=== PATIENT | male | born 1960 | race Caucasian/White ===

== ENCOUNTER → 2016-10-29 | Outpatient (CLI) | payer MEDICAID ==
[2016-10-29 10:44] LABS: ANION GAP 11 (5-19); BLOOD UREA NITROGEN 23 mg/dL (7-20); CALCIUM 9.8 mg/dL (8.4-10.2); CARBON DIOXIDE 28 mmol/L (22-30); CHLORIDE 101 mmol/L (98-107); CHOLESTEROL 124.86 mg/dL (0-200); CREATININE RESULT 1.25 mg/dL (0.52-1.25); Direct HDL 46 mg/dL (>40); GLUCOSE 141 mg/dL (75-110); POTASSIUM 5.5 mmol/L (3.6-5.0); SODIUM 140.2 mmol/L (137-145); TRIGLYCERIDES 79 mg/dL (<150)
[2016-10-29 10:58] LABS: DIRECT LDL 60 mg/dL (<100)
== END ==
LOC: OD 08:35
PROVIDERS: ATTEND Internal Medicine Cardiovascular Disease
DX: N18.3 Chronic kidney disease, stage 3 (moderate) (principal); E83.42 Hypomagnesemia; E78.5 Hyperlipidemia, unspecified
CPT/HCPCS: 36415; 80048; 80061; 83735

== ENCOUNTER → 2017-03-04 | Outpatient (CLI) | payer MEDICAID ==
[2017-03-04 09:05] LABS: ALANINE AMINOTRANSFERASE 38 U/L (21-72); ALBUMIN 4.4 g/dL (3.5-5.0); ALKALINE PHOSPHATASE 80 U/L (38-126); ASPARTATE AMINO TRANSFERASE 22 U/L (17-59); BILIRUBIN,DIRECT 0.3 mg/dL (0.0-0.4); BILIRUBIN,TOTAL 0.7 mg/dL (0.2-1.3); CHOLESTEROL 135.67 mg/dL (0-200); Direct HDL 45 mg/dL (>40); TOTAL PROTEIN 7.6 g/dL (6.3-8.2); TRIGLYCERIDES 143 mg/dL (<150)
[2017-03-04 09:16] LABS: DIRECT LDL 72 mg/dL (<100)
== END ==
LOC: OD 08:01
PROVIDERS: ATTEND Internal Medicine Cardiovascular Disease
DX: E78.5 Hyperlipidemia, unspecified (principal); Z79.899 Other long term (current) drug therapy
CPT/HCPCS: 36415; 80061; 80076

== ENCOUNTER → 2017-09-16 | Outpatient (CLI) | payer MEDICAID | LOC: OD 07:57 | PROVIDERS: ATTEND Internal Medicine Cardiovascular Disease | DX: I10 Essential (primary) hypertension (principal); E78.5 Hyperlipidemia, unspecified; Z79.899 Other long term (current) drug therapy ==

== ENCOUNTER → 2017-09-16 | Outpatient (CLI) | payer MEDICAID ==
[2017-09-16 08:58] LABS: ANION GAP 12 (5-19); BLOOD UREA NITROGEN 24 mg/dL (7-20); CALCIUM 9.9 mg/dL (8.4-10.2); CARBON DIOXIDE 26 mmol/L (22-30); CHLORIDE 101 mmol/L (98-107); CHOLESTEROL 130.84 mg/dL (0-200); GLUCOSE 257 mg/dL (75-110); POTASSIUM 5.2 mmol/L (3.6-5.0); SODIUM 138.5 mmol/L (137-145); TRIGLYCERIDES 133 mg/dL (<150)
[2017-09-16 09:10] LABS: DIRECT LDL 68 mg/dL (<100)
== END ==
LOC: OD 08:01
PROVIDERS: ATTEND Internal Medicine Cardiovascular Disease
DX: I10 Essential (primary) hypertension (principal); E78.5 Hyperlipidemia, unspecified; Z79.899 Other long term (current) drug therapy
CPT/HCPCS: 36415; 80048; 80061

== ENCOUNTER → 2018-03-06 | Outpatient (CLI) | payer MEDICAID ==
[2018-03-06 10:46] LABS: ANION GAP 13 (5-19); BLOOD UREA NITROGEN 18 mg/dL (7-20); CALCIUM 10.1 mg/dL (8.4-10.2); CARBON DIOXIDE 30 mmol/L (22-30); CHLORIDE 101 mmol/L (98-107); CHOLESTEROL 120.22 mg/dL (0-200); GLUCOSE 188 mg/dL (75-110); POTASSIUM 5.3 mmol/L (3.6-5.0); SODIUM 144.1 mmol/L (137-145); TRIGLYCERIDES 123 mg/dL (<150)
[2018-03-06 10:57] LABS: DIRECT LDL 57 mg/dL (<100)
== END ==
LOC: OD 09:33
PROVIDERS: ATTEND Internal Medicine Cardiovascular Disease
DX: N18.3 Chronic kidney disease, stage 3 (moderate) (principal); E78.5 Hyperlipidemia, unspecified
CPT/HCPCS: 36415; 80048; 80061; 83735

== ENCOUNTER 2018-04-08 04:29 | Emergency (ER) | payer MEDICAID ==
[2018-04-08] MEDS ORDERED: KETOROLAC TROMETHAMINE INJ/PF 30 MG/1 ML SDV IV ONE (05:30)
[2018-04-08] MEDS ORDERED: ONDANSETRON HCL INJ/PF 4 MG/2 ML SDV IV ONE (05:30)
[2018-04-08 05:47] LABS: ABSOLUTE BASOPHILS # (AUTO) 0.1 10^3/uL (0.0-0.2); ABSOLUTE EOSINOPHILS # (AUTO) 0.4 10^3/uL (0.0-0.6); ABSOLUTE LYMPHOCYTES (AUTO) 1.6 10^3/uL (0.5-4.7); ABSOLUTE MONOCYTES (AUTO) 0.9 10^3/uL (0.1-1.4); ABSOLUTE NEUT (AUTO) 7.1 10^3/uL (1.7-8.2); BASOPHILS % (AUTO) 0.8 % (0-2); EOSINOPHILS % (AUTO) 3.9 % (0-6); HEMATOCRIT 40.2 % (37.9-51.0); HEMOGLOBIN 13.6 g/dL (13.5-17.0); LYMPHOCYTES % (AUTO) 15.6 % (13-45); MEAN CORPUSCULAR HEMOGLOBIN 27.4 pg (27.0-33.4); MEAN CORPUSCULAR HGB CONC 33.9 g/dL (32.0-36.0); MEAN CORPUSCULAR VOLUME 81 fl (80-97); MONOCYTES % (AUTO) 8.7 % (3-13); PLATELET COUNT 153 10^3/uL (150-450); RED BLOOD COUNT 4.98 10^6/uL (4.35-5.55); RED CELL DISTRIBUTION WIDTH 14.2 % (11.5-14.0); TOTAL CELLS COUNTED % (AUTO) 100 %
[2018-04-08 06:09] LABS: ALANINE AMINOTRANSFERASE 33 U/L (21-72); ALBUMIN 3.9 g/dL (3.5-5.0); ALKALINE PHOSPHATASE 67 U/L (38-126); ANION GAP 12 (5-19); ASPARTATE AMINO TRANSFERASE 24 U/L (17-59); BILIRUBIN,DIRECT 0.3 mg/dL (0.0-0.4); BILIRUBIN,TOTAL 0.4 mg/dL (0.2-1.3); BLOOD UREA NITROGEN 27 mg/dL (7-20); CALCIUM 9.3 mg/dL (8.4-10.2); CARBON DIOXIDE 28 mmol/L (22-30); CHLORIDE 100 mmol/L (98-107); GLUCOSE 239 mg/dL (75-110); LIPASE 167.1 U/L (23-300); POTASSIUM 4.2 mmol/L (3.6-5.0); SODIUM 139.8 mmol/L (137-145)
--- NOTE | 2018-04-08 07:12 | ER Document Report ---
ED General - General Chief Complaint: Possible Kidney Stone Stated Complaint: FLANK PAIN Time Seen by Provider: 04/08/18 07:11 Mode of Arrival: Ambulatory Information source: Patient TRAVEL OUTSIDE OF THE [place] IN LAST 30 DAYS: No - HPI Notes: 58-year-old male with a medical history of diabetes type 2 states he has had strokes in the past as well as a lateral wall CT presents to the ED for complaints of left flank pain that started midnight, states he has a history of kidney stones. States pain is been intermittent, thinks he may have passed one while he was waiting prior to being aided by this provider. Pain is now a 6 out of 10, constant and throbbing in the left. Patient is being evaluated by Dr. Tobias, advertising traffic manager for being in late stage due to early stage III chronic renal failure. denies fevers, chills, chest pain,palpitations, shortness of breath, dyspnea, nausea, vomiting, diarrhea, abdominal pain, , blurred vision, double vision, loss of vision, speech changes, LH, dizziness, syncope, headaches, wheezing, ST, URI, neck pain, weakness, bowel or bladder dysfunction, saddle anesthesia, numbness or tingling in bilateral upper or lower extremities equally, muscle paralysis, weakness in bilateral upper or lower extremities equally or rash. Denies IV drug use. - Related Data Allergies/Adverse Reactions: furosemide [From Lasix] Allergy (Verified 03/09/14 01:35) Past Medical History - General Information source: Patient, Relative - Social History Smoking Status: Never Smoker Family History: Reviewed & Not Pertinent Patient has suicidal ideation: No Patient has homicidal ideation: No - Past Medical History Cardiac Medical History: Reports: Hx Hypertension Pulmonary Medical History: Reports: Hx COPD Denies: Hx Tuberculosis Neurological Medical History: Reports: Hx Cerebrovascular Accident Endocrine Medical History: Reports: Hx Diabetes Mellitus Type 2 Renal/ Medical History: Reports: Hx Kidney Stones, Hx Renal Insufficiency - Stage III. Denies: Hx Peritoneal Dialysis Past Surgical History: Reports: Hx Tonsillectomy - 4 YRS OLD. Denies: Hx Pacemaker - Immunizations Immunizations up to date: Yes Hx Diphtheria, Pertussis, Tetanus Vaccination: No Review of Systems - Review of Systems Constitutional: No symptoms reported EENT: No symptoms reported Cardiovascular: No symptoms reported Respiratory: No symptoms reported Gastrointestinal: No symptoms reported Genitourinary: See HPI Male Genitourinary: No symptoms reported Musculoskeletal: No symptoms reported Skin: No symptoms reported Hematologic/Lymphatic: No symptoms reported Neurological/Psychological: No symptoms reported Physical Exam - Vital signs Vitals: Temp Pulse Resp BP Pulse Ox 98.4 F 83 20 173/84 H 99 04/08/18 04:30 04/08/18 04:30 04/08/18 04:30 04/08/18 04:30 04/08/18 04:30 - Notes Notes: PHYSICAL EXAMINATION: GENERAL: Well-appearing, well-nourished and in no acute distress. HEAD: Atraumatic, normocephalic. EYES: Pupils equal round and reactive to light, extraocular movements intact, sclera anicteric, conjunctiva are normal. ENT: Nares patent, oropharynx clear without exudates. Moist mucous membranes. NECK: Normal range of motion, supple without lymphadenopathy LUNGS: Breath sounds clear to auscultation bilaterally and equal. No wheezes rales or rhonchi. HEART: Regular rate and rhythm without murmurs ABDOMEN: Soft, nontender, nondistended abdomen. No guarding, no rebound. No masses appreciated. Left CVA tenderness noted. Musculoskeletal: Normal range of motion, no pitting or edema. No cyanosis. NEUROLOGICAL: Cranial nerves grossly intact. Normal speech, normal gait. Normal sensory, motor exams PSYCH: Normal mood, normal affect. SKIN: Warm, Dry, normal turgor, no rashes or lesions noted. Course - Re-evaluation Re-evalutation: 04/08/18 10:16 58-year-old male with a history of type 2 diabetes, CT with a past process for evaluation of left flank pain. Remains afebrile vitals stable and in no distress. Patient states that he likely passed a stone due to his pain resolving somewhat once this provider came into the room. Eating and drinking without issues. Reports some nausea but no vomiting. Has tried to increase fluids. Patient is being followed by Dr. Tobias advertising traffic manager in [facility]. CBC unremarkable, CMP does show a creatinine 1.44 with a BUN of 27. Potassium is 4.2. Patient receiving 1 L of fluid another 500 mL fluid will recheck creatinine. Last creatinine that was checked in February was 1.1 in [facility] records. Patient has not been drinking as much, suspect dehydration could be causing this elevated creatinine. urinalysis shows hematuria with glycosuria. Renal ultrasound shows a nonobstructing 5 mm left renal calculus in the upper mid pole of the kidney, no obstruction or hydronephrosis noted. Patient not take his blood pressure medications this morning, numbness or tingling in bilateral upper lower extremities, speech, vision double vision or loss of vision. States he will take blood pressure medication when he gets home. Patient states will start patient on Flomax, given Zofran and [place] for pain to take as needed advised patient to not drive, drink or operate heavy machinery as [place] can cause sedation and impaired judgment. Reevaluation of creatinine was 135 after IV fluids. Discussed with patient to increase oral hydration and advised to follow-up with advertising traffic manager within the next 3 days. Low suspicion for acute appendicitis, bowel obstruction, acute cholecystitis, perforated diverticulitis, incarcerated hernia, pancreatitis, testicular torsion, perforated ulcer and give the patient is appropriate for discharge at this time I have reevaluated this patient multiple times and no significant life threatening changes, no signs of toxicity, sepsis or peritonitis are noted. The patient and I have discussed the diagnosis and risks, and we agree with discharging home and close follow-up. We also discussed returning to the Emergency Department immediately if new or worsening symptoms occur with the understanding that symptoms and presentations can change. At this time will discharge with return precautions and follow-up recommendations. Verbal discharge instructions given a the bedside and opportunity for questions given. We have discussed the symptoms which are most concerning (e.g., fever, chills, urinary retention, cp, sob, changing or worsening pain) that necessitate immediate return. Medication warnings reviewed. All questions and concerns answered by this provider. Patient is in agreement with this plan and has verbalized understanding of return precautions and the need for primary care follow-up in the next 24-72 hours. Patient verbalized understanding of plan of care and agree with plan of care. 04/08/18 13:09 - Vital Signs Vital signs: Temp Pulse Resp BP Pulse Ox 98.8 F 80 20 159/90 H 95 04/08/18 12:12 04/08/18 12:12 04/08/18 12:12 04/08/18 12:12 04/08/18 12:12 - Laboratory Result Diagrams: 04/08/18 05:22 04/08/18 11:15 Laboratory results interpreted by me: 04/08/18 04/08/18 04/08/18 05:22 05:22 07:04 RDW 14.2 H Potassium BUN 27 H Creatinine 1.44 H Est GFR (Non-Af Amer) 50 L Glucose 239 H Urine Glucose (UA) >=500 H Urine Blood SMALL H 04/08/18 11:15 RDW Potassium 5.6 H D BUN 22 H Creatinine 1.35 H Est GFR (Non-Af Amer) 54 L Glucose 215 H Urine Glucose (UA) Urine Blood Discharge - Discharge Clinical Impression: Left nephrolithiasis Chronic renal failure Qualifiers: Chronic kidney disease stage: unspecified stage Qualified Code(s): N18.9 - Chronic kidney disease, unspecified Condition: Stable Disposition: HOME, SELF-CARE Instructions: Kidney Stone ([facility]) Additional Instructions: Your symptoms should improve over the course of the next one week. If you continue to have pain for greater than one week or your pain is not controlled with the pain medications that you have been sent home with you need to return to the emergency department. Please also return if you develop fever, persistent vomiting, or any other symptoms that are concerning to you. You should take tylenol and use the oral norco as prescribed only for pain not controlled by ibuprofen. You are also been sent home with a medication called Flomax to help pass the stone. You've been given Zofran to assist with nausea. Please follow-up with urology in the next 2-3 days. If her symptoms become worse return to the emergency room. Prescriptions: Ondansetron [Zofran Odt 4 mg Tablet] 1 - 2 tab PO Q4H PRN #15 tab.rapdis PRN Reason: For Nausea/Vomiting Tamsulosin HCl [Flomax 0.4 mg Cap.sr] 0.4 mg PO DAILY #7 cap.sr.24h Referrals: ZOIE LANGE MD [Primary Care Provider] - Follow up as needed MARY TOBIAS MD [ACTIVE STAFF] - Follow up in 3-5 days
[2018-04-08] MEDS ORDERED: MORPHINE SULFATE 10 MG/ML INJ IV ONE (07:29)
[2018-04-08] MEDS ORDERED: NORMAL SALINE 1000 ML 1,000 ML IV ONE (07:29)
[2018-04-08 08:15] LABS: APPEARANCE,URINE CLEAR; BILIRUBIN,URINE NEGATIVE (NEGATIVE); COLOR,URINE YELLOW; GLUCOSE, URINE >=500 mg/dL (NEGATIVE); KETONES,URINE NEGATIVE (NEGATIVE); LEUKOCYTE ESTERASE,URINE NEGATIVE (NEGATIVE); NITRITE,URINE NEGATIVE (NEGATIVE); PROTEIN,URINE NEGATIVE (NEGATIVE); URINE SPECIFIC GRAVITY 1.014; UROBILINOGEN,URINE NEGATIVE mg/dL (<2.0)
--- NOTE | 2018-04-08 08:45 | RADIOLOGY REPORT (SQ) ---
EXAM DESCRIPTION: U/S RETROPERITON LTD COMPLETED DATE/TIME: 04/08/2018 8:36 am REASON FOR STUDY: left flank pain, hx of kidney stones COMPARISON: None. TECHNIQUE: Dynamic and static grayscale images acquired of the kidneys and bladder and recorded on P ACS. Additional selected color Doppler and spectral images recorded. LIMITATIONS: The examination is limited due to the patient's body habitus. FINDINGS: RIGHT KIDNEY: The right kidney measures 10.5 cm in length, normal size. Normal echogeni city. No solid or suspicious masses. No hydronephrosis. No calcifications. LEFT KIDNEY: The left kidney measures 11.4 cm in length, normal size. Normal echogenicity. A nono bstructing 5 mm calculus in the upper- mid pole of the kidney. BLADDER: No masses. Bilateral ureteral jets are not visualized. OTHER FINDINGS: No other significant finding. IMPRESSION: 1 Non-obstructing 5 mm left renal calculus. TECHNICAL DOCUMENTATION: JOB ID: [id number] [employer]- All Rights Reserved Reading location - IP/workstation name: [email or web address]
[2018-04-08] MEDS ORDERED: NORMAL SALINE 500 ML IV PRN (09:46)
[2018-04-08] MEDS ORDERED: HYDROCODONE/ACETAMINOPHEN 5-325 MG (6 TAB/ER DISP) PO PRN (10:00)
[2018-04-08] MEDS ORDERED: FENTANYL CITRATE INJ/PF 100 MCG/2 ML AMPUL IV ONE (11:20)
[2018-04-08 11:51] LABS: ANION GAP 14 (5-19); BLOOD UREA NITROGEN 22 mg/dL (7-20); CALCIUM 9.2 mg/dL (8.4-10.2); CARBON DIOXIDE 27 mmol/L (22-30); CHLORIDE 101 mmol/L (98-107); GLUCOSE 215 mg/dL (75-110); SODIUM 141.8 mmol/L (137-145)
[2018-04-08 11:52] LABS: POTASSIUM 5.6 mmol/L (3.6-5.0)
[2018-04-08 12:19] VITALS: BP 159/90
== END 2018-04-08 12:10 | disposition home or self-care (01) ==
LOC: ER 04:29
DX: N20.0 Calculus of kidney (principal); R31.9 Hematuria, unspecified; E11.22 Type 2 diabetes mellitus with diabetic chronic kidney disease; I12.9 Hypertensive chronic kidney disease with stage 1 through stage 4 chronic kidney disease, or unspecified chronic kidney disease; N18.3 Chronic kidney disease, stage 3 (moderate); R11.0 Nausea; I25.2 Old myocardial infarction; Z88.8 Allergy status to other drugs, medicaments and biological substances; Z79.899 Other long term (current) drug therapy
CPT/HCPCS: 99284; 96361; 96374; 96375; 36415; 83690; 85025; 80048; 80053; 81001; 76775; J3010; J2270; J2405; J7030; J7040

== ENCOUNTER 2018-04-08 16:30 | Inpatient (IN) | payer MEDICAID ==
--- NOTE | 2018-04-08 17:27 | ER Document Report ---
ED Medical Screen (RME) - General Chief Complaint: Possible Kidney Stone Stated Complaint: WEAKNESS Time Seen by Provider: 04/08/18 17:20 TRAVEL OUTSIDE OF THE [place] IN LAST 30 DAYS: No - HPI Notes: 04/08/18 17:26 Patient coming in for right upper extremity right lower extremity weakness onset after he was discharged here from the hospital with a kidney stone. Patient states he thinks he was having a reaction to the medication he received here. Patient states upon arriving home fell out of bed and laid on the floor for approximately 1 hour. Patient states unclear of exactly what time symptoms started possibly between 1230 and 130. - Related Data Allergies/Adverse Reactions: furosemide [From Lasix] Allergy (Verified 03/09/14 01:35) Past Medical History - Social History Chew tobacco use (# tins/day): No Frequency of alcohol use: None Drug Abuse: None - Past Medical History Cardiac Medical History: Reports: Hx Hypertension Pulmonary Medical History: Reports: Hx COPD Denies: Hx Tuberculosis Neurological Medical History: Reports: Hx Cerebrovascular Accident Endocrine Medical History: Reports: Hx Diabetes Mellitus Type 2 Renal/ Medical History: Reports: Hx Kidney Stones, Hx Renal Insufficiency - Stage III. Denies: Hx Peritoneal Dialysis Past Surgical History: Reports: Hx Tonsillectomy - 4 YRS OLD. Denies: Hx Pacemaker - Immunizations Immunizations up to date: Yes Hx Diphtheria, Pertussis, Tetanus Vaccination: No Physical Exam - Vital signs Vitals: Temp Pulse Resp BP Pulse Ox 98.1 F 106 H 16 151/105 H 93 04/08/18 16:37 04/08/18 16:37 04/08/18 16:37 04/08/18 16:37 04/08/18 16:37 - Notes Notes: Unequal television mechanic strengths left greater than right and equal push pull patient is unable to pick his leg up in the wheelchair and do knee-chest on the right side. Able to perform this on the left side. Symmetrical smile no drooping no aphasia no slurred speech Course - Re-evaluation Re-evalutation: 04/08/18 17:27 Patient states residual effects from previous strokes are all left-sided. Patient now with right upper right lower extremity weakness. Head CT will be performed stroke alert called charge nurse been notified - Vital Signs Vital signs: Temp Pulse Resp BP Pulse Ox 98.1 F 106 H 16 151/105 H 93 04/08/18 16:37 04/08/18 16:37 04/08/18 16:37 04/08/18 16:37 04/08/18 16:37 Doctor's Discharge - Discharge Referrals: ZOIE LANGE MD [Primary Care Provider] - Follow up as needed
--- NOTE | 2018-04-08 18:00 | RADIOLOGY REPORT (SQ) ---
EXAM DESCRIPTION: CT HEAD WITHOUT COMPLETED DATE/TIME: 04/08/2018 5:34 pm REASON FOR STUDY: weakness COMPARISON: CT brain 05/27/2012 MRI brain 05/24/2012 TECHNIQUE: Axial images acquired through the brain without intravenous contrast. Images reviewed wi th bone, brain and subdural windows. Additional sagittal and coronal reconstructions were generated. Images stored on PACS. All CT scanners at this facility use dose modulation, iterative reconstruction, and/or weight based d osing when appropriate to reduce radiation dose to as low as reasonably achievable (ALARA). [facility]: Dose Right [facility]: CareDose [facility]: Dose Right [facility]: Teradose 4D [facility]: [employer] RADIATION DOSE: CT Rad equipment meets quality standard of care and radiation dose reduction techniq ues were employed. CTDIvol: 53.2 mGy. DLP: 1017 mGy-cm. mGy. LIMITATIONS: None. FINDINGS: VENTRICLES: Normal size and contour. CEREBRUM: No CT evidence of acute large territory ischemic change, acute intracranial hemorrhage, mas s effect, or midline shift. Old lacunar infarct right thalamus axial image 17 CEREBELLUM: No masses. No hemorrhage. No alteration of density. No evidence for acute infarction. EXTRAAXIAL SPACES: No fluid collections. No masses. ORBITS AND GLOBE: No intra- or extraconal masses. Normal contour of globe without masses. CALVARIUM: No fracture. PARANASAL SINUSES: No fluid or mucosal thickening. SOFT TISSUES: No mass or hematoma. OTHER: No other significant finding. IMPRESSION: Old right thalamic infarct. No acute changes EVIDENCE OF ACUTE STROKE: NO. COMMENT: Quality ID # [id number]: Final reports with documentation of one or more dose reduction techniques (e.g., Automated exposure control, adjustment of the mA and/or kV according to patient size, use of iterative reconstruction technique) TECHNICAL DOCUMENTATION: JOB ID: [id number] [employer]- All Rights Reserved Reading location - IP/workstation name: [email or web address]
--- NOTE | 2018-04-08 18:12 | RADIOLOGY REPORT (SQ) ---
EXAM DESCRIPTION: CHEST SINGLE VIEW COMPLETED DATE/TIME: 04/08/2018 5:44 pm REASON FOR STUDY: weakness COMPARISON: 05/24/2012 EXAM PARAMETERS: NUMBER OF VIEWS: One view. TECHNIQUE: Single frontal radiographic view of the chest acquired. RADIATION DOSE: NA LIMITATIONS: None. FINDINGS: LUNGS AND PLEURA: No opacities, masses or pneumothorax. No pleural effusion. MEDIASTINUM AND HILAR STRUCTURES: No masses. Contour normal. HEART AND VASCULAR STRUCTURES: Cardiomegaly. No pulmonary edema. BONES: No acute findings. HARDWARE: None in the chest. OTHER: No other significant finding. IMPRESSION: Cardiomegaly without CHF. TECHNICAL DOCUMENTATION: JOB ID: [id number] [employer]- All Rights Reserved Reading location - IP/workstation name: [email or web address]
--- NOTE | 2018-04-08 18:23 | RADIOLOGY REPORT (SQ) ---
EXAM DESCRIPTION: CTA HEAD COMPLETED DATE/TIME: 04/08/2018 5:44 pm REASON FOR STUDY: RUe rle weakness stroke symtpoms COMPARISON: MRI brain 05/24/2012 CT brain 05/27/2012 TECHNIQUE: Post IV contrast scanning, thin section axial imaging through the brain to evaluate the a rterial structures. Source and MIP images are saved and reviewed on PACS. Advanced 3D imaging as volume-rendering, MIPs, SSD performed? yes All CT scanners at this facility use dose modulation, iterative reconstruction, and/or weight based d osing when appropriate to reduce radiation dose to as low as reasonably achievable (ALARA). [facility]: Dose Right [facility]: CareDose [facility]: Dose Right [facility]: Teradose 4D [facility]: [employer] CONTRAST TYPE AND DOSE: contrast/concentration: Isovue 350.00 mg/ml; Total Contrast Delivered: 65.0 ml; Total Saline Delivered: 75.0 ml RENAL FUNCTION: Creatinine 1.35 LIMITATIONS: None. FINDINGS: [place]: The anterior, middle, posterior cerebral arteries are all patent. No ev idence of aneurysm or focal stenosis. POSTERIOR CIRCULATION: The distal vertebral arteries are patent as is the basilar artery. No aneurysm . BRAIN: No gross enhancing lesions as visualized. No acute intracranial hemorrhage BONES: Intact as visualized. SINUSES: No fluid or mucosal thickening. OTHER: Results discussed with Dr. Chew At the bottom edge of the field of view, the carotid bifurcations are included on axial images 1-9. There is no flow significant stenosis of the proximal internal carotid arteries at the carotid bifurc ations. Cervical ICAs in the field of view are normal. IMPRESSION: NO CTA EVIDENCE OF STENOSIS OR ANEURYSM OF THE [place]. TECHNICAL DOCUMENTATION: JOB ID: [id number] Quality ID # [id number]: Final reports with documentation of one or more dose reduction techniques (e.g., Au tomated exposure control, adjustment of the mA and/or kV according to patient size, use of iterative reconstruction technique) 2010 [employer]- All Rights Reserved Reading location - IP/workstation name: [email or web address]
[2018-04-08 18:30] LABS: HEMATOCRIT 41.2 % (37.9-51.0); HEMOGLOBIN 13.5 g/dL (13.5-17.0); MEAN CORPUSCULAR HEMOGLOBIN 26.7 pg (27.0-33.4); MEAN CORPUSCULAR HGB CONC 32.7 g/dL (32.0-36.0); MEAN CORPUSCULAR VOLUME 82 fl (80-97); PLATELET COUNT 172 10^3/uL (150-450); RED BLOOD COUNT 5.05 10^6/uL (4.35-5.55); WHITE BLOOD COUNT 14.5 10^3/uL (4.0-10.5)
[2018-04-08 18:34] LABS: INTERNATIONAL RATION (INR) 1.03
--- NOTE | 2018-04-08 18:39 | ER Document Report ---
ED General - General Chief Complaint: Possible Kidney Stone Stated Complaint: WEAKNESS Time Seen by Provider: 04/08/18 17:20 TRAVEL OUTSIDE OF THE [place] IN LAST 30 DAYS: No - HPI Notes: 58-year-old male with a history of stroke, chronic kidney disease, hypertension , diabetes, kidney stones presents with right-sided weakness. He was seen in the emergency department earlier this morning for a kidney stone. He was discharged around 12 PM. He states he was sitting on his bed around around 130 when he "fell off of his bed because he could not use his right side." He states it took him about 2 hours to crawl up to the bed and call for help around 330pm. He has prior left-sided weakness from 2 prior strokes. He reports chronic spasticity of his left arm and weakness of his left leg. He denies headache, chest pain, shortness of breath. Patient believes that the shot of Toradol that he received prior to leaving hospital this morning because to symptoms around 1230. Denies any recent changes in medications. - Related Data Allergies/Adverse Reactions: furosemide [From Lasix] Allergy (Verified 03/09/14 01:35) Past Medical History - Social History Smoking Status: Current Every Day Smoker Chew tobacco use (# tins/day): No Frequency of alcohol use: None Drug Abuse: None Family History: Reviewed & Not Pertinent Patient has suicidal ideation: No Patient has homicidal ideation: No - Past Medical History Cardiac Medical History: Reports: Hx Hypertension Pulmonary Medical History: Reports: Hx COPD Denies: Hx Tuberculosis Neurological Medical History: Reports: Hx Cerebrovascular Accident Endocrine Medical History: Reports: Hx Diabetes Mellitus Type 2 Renal/ Medical History: Reports: Hx Kidney Stones, Hx Renal Insufficiency - Stage III. Denies: Hx Peritoneal Dialysis Past Surgical History: Reports: Hx Tonsillectomy - 4 YRS OLD. Denies: Hx Pacemaker - Immunizations Immunizations up to date: Yes Hx Diphtheria, Pertussis, Tetanus Vaccination: No Review of Systems - Review of Systems Notes: Constitutional: Negative for fever. HENT: Negative for sore throat. Eyes: Negative for visual changes. Cardiovascular: Negative for chest pain. Respiratory: Negative for shortness of breath. Gastrointestinal: Negative for abdominal pain, vomiting or diarrhea. Genitourinary: Negative for dysuria. Musculoskeletal: Negative for back pain. Skin: Negative for rash. Neurological: Negative for headaches, positive for new right-sided weakness and chronic left leg weakness and left arm spasticity. 10 point ROS negative except as marked above and in HPI. Physical Exam - Vital signs Vitals: Temp Pulse Resp BP Pulse Ox 98.1 F 106 H 16 151/105 H 93 04/08/18 16:37 04/08/18 16:37 04/08/18 16:37 04/08/18 16:37 04/08/18 16:37 - Notes Notes: PHYSICAL EXAMINATION: GENERAL: Well-appearing, well-nourished and in no acute distress. Morbid obesity HEAD: Atraumatic, normocephalic. EYES: Pupils equal round and reactive to light, extraocular movements intact, conjunctiva are normal. ENT: nares patent, oropharynx clear without exudates. Moist mucous membranes. NECK: Normal range of motion, supple without lymphadenopathy LUNGS: Breath sounds clear to auscultation bilaterally and equal. No wheezes rales or rhonchi. HEART: Regular rate and rhythm, no chest wall tenderness . Murmur appreciated ABDOMEN: Soft, nontender, normoactive bowel sounds. No guarding, no rebound. No masses appreciated. EXTREMITIES: Normal range of motion, no pitting or edema. No cyanosis. NEUROLOGICAL: Cranial nerves grossly intact. Normal speech, normal gait. No facial droop or tongue deviation. 4 out of 5 strength right leg and 3 out of strength left leg patient states is chronic. No pronator drift. 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 Denies sensory deficits. PSYCH: Normal mood, normal affect. SKIN: Warm, Dry, normal turgor, no rashes or lesions noted. Course - Re-evaluation Re-evalutation: 04/08/18 18:43 Patient not a TPA candidate as he is out of the window with rapidly improving symptoms. Patient had significant deficits in triage that have now mostly resolved. CT shows old right thalamic infarct. CTA shows no acute large vessel occlusion. Patient takes aspirin only. Will admit for MRI and further discussion of anticoagulant/antiplatelet. 04/08/18 19:32 Discussed with hospitalist. Blood pressure elevated, but not treated at this time due to concern for stroke in need to perfuse area of ischemia. Aspirin ordered. - Vital Signs Vital signs: Temp Pulse Resp BP Pulse Ox 98.1 F 101 H 13 161/106 H 96 04/08/18 16:37 04/08/18 18:00 04/08/18 19:16 04/08/18 19:16 04/08/18 19:16 - Laboratory Result Diagrams: 04/08/18 18:01 04/08/18 18:01 Laboratory results interpreted by me: 04/08/18 04/08/18 04/08/18 18:01 18:01 18:01 WBC 14.5 H MCH 26.7 L Seg Neuts % (Manual) 87 H Lymphocytes % (Manual) 9 L Abs Neuts (Manual) 12.6 H BUN 23 H Creatinine 1.37 H Est GFR (Non-Af Amer) 53 L Glucose 236 H Creatine Kinase 658 H CK-MB (CK-2) 5.82 H Discharge - Discharge Condition: Stable Disposition: ADMITTED INPATIENT Admitting Provider: Hospitalist Unit Admitted: IMCU Referrals: ZOIE LANGE MD [Primary Care Provider] - Follow up as needed
--- NOTE | 2018-04-08 18:42 | EKG REPORT ---
SEVERITY:- ABNORMAL ECG - SINUS TACHYCARDIA RBBB AND LAFB PROBABLE LEFT VENTRICULAR HYPERTROPHY : Confirmed by: Petey Choudhary MD 08-Apr-2018 18:41:37
[2018-04-08 18:43] LABS: ALANINE AMINOTRANSFERASE 32 U/L (21-72); ALKALINE PHOSPHATASE 75 U/L (38-126); ANION GAP 12 (5-19); ASPARTATE AMINO TRANSFERASE 28 U/L (17-59); BILIRUBIN,DIRECT 0.2 mg/dL (0.0-0.4); BILIRUBIN,TOTAL 0.6 mg/dL (0.2-1.3); BLOOD UREA NITROGEN 23 mg/dL (7-20); CALCIUM 8.9 mg/dL (8.4-10.2); CARBON DIOXIDE 26 mmol/L (22-30); CHLORIDE 100 mmol/L (98-107); CREATINE KINASE 658 U/L (55-170); GLUCOSE 236 mg/dL (75-110); POTASSIUM 4.8 mmol/L (3.6-5.0); TOTAL PROTEIN 6.9 g/dL (6.3-8.2)
[2018-04-08 18:55] LABS: CREATINE KINASE MB 5.82 ng/mL (<4.55)
[2018-04-08 18:56] LABS: ABSOLUTE LYMPHOCYTES# (MANUAL) 1.3 10^3/uL (0.5-4.7); ABSOLUTE MONOCYTES # (MANUAL) 0.6 10^3/uL (0.1-1.4); ABSOLUTE NEUTROPHILS# (MANUAL) 12.6 10^3/uL (1.7-8.2); BASOPHILS % (MANUAL) 0 % (0-2); EOSINOPHILS % (MANUAL) 0 % (0-6); LYMPHOCYTES % (MANUAL) 9 % (13-45); MONOCYTES % (MANUAL) 4 % (3-13); SEGMENTED NEUTROPHILS % (MAN) 87 % (42-78); TOTAL CELLS COUNTED 100
[2018-04-08 18:58] LABS: ANISOCYTOSIS SLIGHT; OVALOCYTES SLIGHT; PLATELET COMMENT ADEQUATE; POIKILOCYTOSIS SLIGHT; TEAR DROP CELLS SLIGHT
[2018-04-08 19:03] LABS: TROPONIN I 0.05 ng/mL
[2018-04-08] MEDS ORDERED: ASPIRIN 325 MG TABLET PO ONE (19:34)
--- NOTE | 2018-04-08 19:42 | ER Document Report ---
Doctor's Note Notes: 04/08/18 19:41 And initially examined the patient and RME concern for possible stroke with new onset of right upper extremity right lower extremity weakness. Patient underwent a head CT and CTA of his head showing no acute pathology. After the patient was picked up by the primary provider in the past states symptoms resolved I did reexamine patient. Patient with equal plastic products sales representative strength now. Equal push pull. Patient with no pronator drift. Patient is also able to lift his right leg now without difficulty greater than his left leg which has had effect from previous strokes. Patient symptoms have dramatically improved since being seen and evaluated by myself and RME. This was relayed to the primary provider that was seeing the patient in the ER.
[2018-04-08] MEDS ORDERED: DOCUSATE SODIUM 100 MG CAPSULE PO PRN (19:51)
[2018-04-08] MEDS ORDERED: ACETAMINOPHEN 325 MG TABLET PO PRN (19:51)
[2018-04-08] MEDS ORDERED: DEXTROSE 40% GEL 15 GM TUBE PO PRN ×2 (19:51)
[2018-04-08] MEDS ORDERED: GLUCAGON,HUMAN RECOMB 1 MG INJ IM PRN (19:51)
[2018-04-08] MEDS ORDERED: MAGNESIUM HYDROXIDE SUSP 30 ML UDCUP PO PRN (19:51)
[2018-04-08] MEDS ORDERED: DEXTROSE 50%-WATER 25 GM/50 ML DISP.SYRIN IV PRN ×2 (19:51)
[2018-04-08] MEDS ORDERED: ATORVASTATIN CALCIUM 80 MG TABLET PO ONE (20:30)
[2018-04-08] MEDS ORDERED: (PENDING PHARMACY ID) (Pravastatin Sodium [Pravastatin Sodium] 20 MG) PO SCH (22:00)
--- NOTE | 2018-04-08 22:15 | RADIOLOGY REPORT (SQ) ---
EXAM DESCRIPTION: MRI HEAD WITHOUT COMPLETED DATE/TIME: 04/08/2018 9:55 pm REASON FOR STUDY: R weakness COMPARISON: 05/24/2012 TECHNIQUE: Multiplanar imaging includes non-contrasted T1, T2, FLAIR, and diffusion with ADC map seq uences. Images stored on PACS. LIMITATIONS: None. FINDINGS: ANATOMY: No anomalies. Normal vascular flow voids. Pituitary fossa normal. CSF SPACES: Normal in size and contour. No hemorrhage. CEREBRUM: Sulci and gyri normal in size and contour. Normal white matter signal on FLAIR imaging. No evidence of hemorrhage, mass, or extraaxial fluid collection. Very small old lacunar infarct in the right thalamus. POSTERIOR FOSSA: No signal alteration. No hemorrhage. No edema, masses or mass effect. Internal lexie tory canals, cerebello-pontine angles, mastoids normal. DIFFUSION IMAGING: Negative for acute or sub-acute infarction. ORBITS: No masses. Globes normal. PARANASAL SINUSES: No fluid levels. Mucosa normal. OTHER: No other significant finding. IMPRESSION: Old small right lacunar infarct with no acute intracranial imaging findings. EVIDENCE OF ACUTE STROKE: NO. TECHNICAL DOCUMENTATION: JOB ID: [id number] [employer]rib- All Rights Reserved Reading location - IP/workstation name: [email or web address]
[2018-04-08] MEDS: METOPROLOL TARTRATE 25 MG TABLET PO SCH (23:28)
[2018-04-08] MEDS: HEPARIN SOD (PORCINE) 5,000 UNIT/ML 1 ML SYRINGE SUBCUT SCH (23:29)
[2018-04-08 23:41] LABS: CREATINE KINASE MB 6.34 ng/mL (<4.55)
[2018-04-08 23:48] LABS: TROPONIN I 0.065 ng/mL
[2018-04-09 05:45] LABS: ABSOLUTE BASOPHILS # (AUTO) 0.1 10^3/uL (0.0-0.2); ABSOLUTE EOSINOPHILS # (AUTO) 0.1 10^3/uL (0.0-0.6); ABSOLUTE MONOCYTES (AUTO) 0.9 10^3/uL (0.1-1.4); ABSOLUTE NEUT (AUTO) 9.6 10^3/uL (1.7-8.2); BASOPHILS % (AUTO) 0.5 % (0-2); EOSINOPHILS % (AUTO) 1.3 % (0-6); HEMATOCRIT 39.6 % (37.9-51.0); HEMOGLOBIN 13.2 g/dL (13.5-17.0); LYMPHOCYTES % (AUTO) 8.7 % (13-45); MEAN CORPUSCULAR HGB CONC 33.4 g/dL (32.0-36.0); MEAN CORPUSCULAR VOLUME 81 fl (80-97); MONOCYTES % (AUTO) 8.1 % (3-13); PLATELET COUNT 169 10^3/uL (150-450); RED CELL DISTRIBUTION WIDTH 14.2 % (11.5-14.0); SEGMENTED NEUTROPHILS % (AUTO) 81.4 % (42-78); TOTAL CELLS COUNTED % (AUTO) 100 %; WHITE BLOOD COUNT 11.7 10^3/uL (4.0-10.5)
[2018-04-09 06:05] LABS: ANION GAP 13 (5-19); BLOOD UREA NITROGEN 21 mg/dL (7-20); CALCIUM 8.9 mg/dL (8.4-10.2); CARBON DIOXIDE 26 mmol/L (22-30); CHLORIDE 101 mmol/L (98-107); CHOLESTEROL 112.09 mg/dL (0-200); GLUCOSE 190 mg/dL (75-110); POTASSIUM 4.3 mmol/L (3.6-5.0); TRIGLYCERIDES 140 mg/dL (<150)
[2018-04-09 06:15] LABS: CREATINE KINASE MB 6.1 ng/mL (<4.55); DIRECT LDL 48 mg/dL (<100); TROPONIN I 0.071 ng/mL
[2018-04-09] MEDS: HEPARIN SOD (PORCINE) 5,000 UNIT/ML 1 ML SYRINGE SUBCUT SCH ×3 (07:36→23:08)
--- NOTE | 2018-04-09 07:42 | PDOC H&P ---
History of Present Illness Admission Date/PCP: 04/08/18 20:08 ZOIE LANGE MD Patient complains of: Right-sided weakness History of Present Illness: THAI BARROSO is a 58 year old male with a past medical history of morbid obesity, CVA with residual left-sided weakness, anxiety, hypertension, diabetes and dyslipidemia. Patient was seen earlier in the day with symptoms of nephrolithiasis. He was improved and discharged with Ultram. At home he felt weak and fell to the ground and was subsequently unable stand prompting a call to EMS. In the emergency room he is found to have intermittent right-sided weakness, rhabdomyolysis and referred to the hospitalist for admission. Initial workup for CVA is unremarkable. Patient admits regular use of Hemp supplements. Past Medical History Cardiac Medical History: Reports: Hypertension Pulmonary Medical History: Reports: Chronic Obstructive Pulmonary Disease (COPD) Denies: Tuberculosis Endocrine Medical History: Reports: Diabetes Mellitus Type 2, Obesity Renal/ Medical History: Reports: Chronic Kidney Disease, Nephrolithiasis Psychiatric Medical History: Reports: General Anxiety Disorder, Tobacco Dependency Past Surgical History Past Surgical History: Reports: Tonsillectomy - 4 YRS OLD Denies: Pacemaker Social History Information Source: Patient, [facility] Records Lives with: Alone Smoking Status: Current Every Day Smoker Frequency of Alcohol Use: None Hx Recreational Drug Use: No Hx Prescription Drug Abuse: No - Advance Directive Resuscitation Status: Full Code Family History Family History: Reviewed & Not Pertinent, Arthritis, CAD, COPD, CVA Parental Family History Reviewed: Yes Children Family History Reviewed: Yes Sibling(s) Family History Reviewed.: Yes Medication/Allergy Home Medications: Baclofen [Baclofen 20 mg Tablet] 20 mg PO TID 04/08/18 Cholecalciferol (Vitamin D3) [Vitamin D3 1000 Unit Tablet] 1,000 units PO DAILY 04/08/18 Dulaglutide [Trulicity] 1.5 mg INJ QUIGLEY@1000 04/08/18 Glipizide [Glucotrol 10 mg Tablet] 10 mg PO BID 04/08/18 Hydrochlorothiazide [Hydrodiuril 12.5 mg Capsule] 12.5 mg PO DAILY 04/08/18 Insulin Glargine,Hum.rec.anlog [Lantus Insulin 100 Unit/1 ml 10 ml] 60 units SQ QHS 04/08/18 Lisinopril [Prinivil] 20 mg PO BID 04/08/18 Magnesium Oxide [Mag-Ox 400 mg Tablet] 400 mg PO DAILY 04/08/18 Pravastatin Sodium [Pravachol] 20 mg PO QHS 04/08/18 Tiotropium Frederick [Spiriva Handihaler 18 mcg/dose (30 Dose)] 1 cap IH DAILY Verapamil HCl [Calan 120 mg Tablet] 120 mg PO DAILY 04/08/18 Allergies/Adverse Reactions: furosemide [From Lasix] Allergy (Verified 03/09/14 01:35) Review of Systems Constitutional: PRESENT: as per HPI, fatigue, weight gain. ABSENT: anorexia, chills, fever(s) Eyes: ABSENT: visual disturbances Ears: ABSENT: hearing changes Cardiovascular: ABSENT: chest pain, dyspnea on exertion, edema, orthropnea, palpitations Respiratory: ABSENT: cough, hemoptysis Gastrointestinal: ABSENT: abdominal pain, constipation, diarrhea, hematemesis, hematochezia, nausea, vomiting Genitourinary: ABSENT: dysuria, hematuria Musculoskeletal: PRESENT: as per HPI, muscle weakness Integumentary: ABSENT: rash, wounds Neurological: PRESENT: as per HPI, focal weakness, weakness Psychiatric: PRESENT: as per HPI, anxiety. ABSENT: homidical ideation, suicidal ideation Endocrine: ABSENT: cold intolerance, heat intolerance, polydipsia, polyuria Hematologic/Lymphatic: ABSENT: easy bleeding, easy bruising Physical Exam Vital Signs: Temp Pulse Resp BP Pulse Ox 98.8 F 88 14 160/95 H 93 04/09/18 03:00 04/09/18 06:00 04/09/18 07:01 04/09/18 07:01 04/09/18 07:01 General appearance: PRESENT: cooperative, disheveled, mild distress, morbidly obese Head exam: PRESENT: atraumatic, normocephalic Eye exam: PRESENT: conjunctiva pink, EOMI, PERRLA. ABSENT: scleral icterus Ear exam: PRESENT: normal external ear exam Mouth exam: PRESENT: moist, tongue midline Neck exam: ABSENT: carotid bruit, JVD, lymphadenopathy, thyromegaly Respiratory exam: PRESENT: clear to auscultation juan. ABSENT: rales, rhonchi, wheezes Cardiovascular exam: PRESENT: RRR. ABSENT: diastolic murmur, rubs, systolic murmur Pulses: PRESENT: normal dorsalis pedis pul Vascular exam: PRESENT: normal capillary refill GI/Abdominal exam: PRESENT: normal bowel sounds, soft. ABSENT: distended, guarding, mass, organolmegaly, rebound, tenderness Rectal exam: PRESENT: deferred Extremities exam: PRESENT: full ROM, +1 edema. ABSENT: calf tenderness, clubbing, pedal edema Neurological exam: PRESENT: alert, awake, oriented to person, oriented to place , oriented to time, oriented to situation, CN II-XII grossly intact. ABSENT: motor sensory deficit Psychiatric exam: PRESENT: anxious, normal mood. ABSENT: homicidal ideation, suicidal ideation Skin exam: PRESENT: dry, intact, warm. ABSENT: cyanosis, rash Results Laboratory Results: 04/09/18 05:00 04/09/18 05:00 04/09/18 04/09/18 05:00 05:00 WBC 11.7 H RBC 4.90 Hgb 13.2 L Hct 39.6 MCV 81 MCH 27.0 MCHC 33.4 RDW 14.2 H Plt Count 169 Seg Neutrophils % 81.4 H Lymphocytes % 8.7 L Monocytes % 8.1 Eosinophils % 1.3 Basophils % 0.5 Absolute Neutrophils 9.6 H Absolute Lymphocytes 1.0 Absolute Monocytes 0.9 Absolute Eosinophils 0.1 Absolute Basophils 0.1 Sodium 140.0 Potassium 4.3 Chloride 101 Carbon Dioxide 26 Anion Gap 13 BUN 21 H Creatinine 1.33 H Est GFR ( Amer) > 60 Est GFR (Non-Af Amer) 55 L Glucose 190 H Calcium 8.9 Triglycerides 140 Cholesterol 112.09 LDL Cholesterol Direct 48 VLDL Cholesterol 28.0 HDL Cholesterol 41 04/08/18 04/08/18 04/09/18 22:45 22:45 05:00 Creatine Kinase 869 H 1186 H CK-MB (CK-2) 6.34 H Troponin I 0.065 04/09/18 05:00 Creatine Kinase CK-MB (CK-2) 6.10 H Troponin I 0.071 Impressions: Head MRI 04/08/18 00:00 IMPRESSION: Old small right lacunar infarct with no acute intracranial imaging findings. EVIDENCE OF ACUTE STROKE: NO. Chest X-Ray 04/08/18 17:21 IMPRESSION: Cardiomegaly without CHF. Head CT 04/08/18 17:21 IMPRESSION: Old right thalamic infarct. No acute changes EVIDENCE OF ACUTE STROKE: NO. Head CTA 04/08/18 17:32 IMPRESSION: NO CTA EVIDENCE OF STENOSIS OR ANEURYSM OF THE [place]. Assessment & Plan - Diagnosis (1) TIA (transient ischemic attack) Is this a current diagnosis for this admission?: Yes Plan: History of CVA, but now unclear complicated by cannabinoid use, Ultram and morbid obesity, TIA care set, follow-up MRI, carotid Doppler and consider echo. Follow-up TSH and lipid profile. Education for supplement discontinuation. (2) Rhabdomyolysis Is this a current diagnosis for this admission?: Yes Plan: Secondary to fall, IV fluid challenge, reevaluate total CK (3) Diabetes Is this a current diagnosis for this admission?: Yes Plan: Outpatient regiment with Humalog sliding scale, follow-up A1c (4) Morbid obesity Is this a current diagnosis for this admission?: Yes Plan: Morbid obesity will evaluate for metabolic cause with evaluation of thyroid function and dietitian consultation (5) Chronic renal failure Qualifiers: Chronic kidney disease stage: unspecified stage Qualified Code(s): N18.9 - Chronic kidney disease, unspecified Is this a current diagnosis for this admission?: Yes Plan: Avoid nephrotoxic meds and doses. Follow-up chemistry - Time Time Spent: 50 to 70 Minutes
[2018-04-09] MEDS ORDERED: NORMAL SALINE 1000 ML 1,000 ML IV SCH (07:45)
[2018-04-09] MEDS ORDERED: ASPIRIN 325 MG TABLET, ENT COATED PO SCH (10:00)
[2018-04-09 10:05] LABS: APPEARANCE,URINE CLEAR; BILIRUBIN,URINE NEGATIVE (NEGATIVE); COLOR,URINE YELLOW; GLUCOSE, URINE >=500 mg/dL (NEGATIVE); KETONES,URINE NEGATIVE (NEGATIVE); LEUKOCYTE ESTERASE,URINE NEGATIVE (NEGATIVE); NITRITE,URINE NEGATIVE (NEGATIVE); PROTEIN,URINE NEGATIVE (NEGATIVE); URINE SPECIFIC GRAVITY 1.016; UROBILINOGEN,URINE NEGATIVE mg/dL (<2.0)
[2018-04-09] MEDS: INSULIN LISPRO 100 UNIT/ML 3 ML VIAL SUBCUT PRN (11:51)
[2018-04-09 12:29] LABS: CREATINE KINASE MB 5.48 ng/mL (<4.55); TROPONIN I 0.04 ng/mL
[2018-04-09] MEDS ORDERED: CEFTRIAXONE INJ 1000 MG VIAL IV SCH (13:30)
[2018-04-09] MEDS: METOPROLOL TARTRATE 25 MG TABLET PO SCH ×2 (14:17→22:56)
[2018-04-09] MEDS: TAMSULOSIN HCL 0.4 MG CAP.SR.24H PO SCH (14:20)
[2018-04-09] MEDS: LIDOCAINE 5% (700 MG) TRANSDERMAL ADH..PATCH TP SCH (14:23)
[2018-04-09] MEDS ORDERED: INSULIN GLARGINE,HUM.REC.ANLOG 1,000 UNIT/10 ML UNIT SUBCUT ONE ×2 (14:30→15:12)
--- NOTE | 2018-04-09 15:45 | RADIOLOGY REPORT (SQ) ---
EXAM DESCRIPTION: CAROTID DOPPLER COMPLETED DATE/TIME: 04/09/2018 2:15 pm REASON FOR STUDY: R weakness COMPARISON: None. TECHNIQUE: Grayscale ultrasound, Doppler velocity and spectra, and color Doppler images acquired of the extra-cranial carotid and vertebral arteries. Images stored on PACS. LIMITATIONS: None. FINDINGS: RIGHT CAROTID CCA Velocities: Within normal limits. ICA Velocities Peak systolic 0.69 m/s. End diastolic 0.30 m/s. Proximal ICA/CCA peak systolic ratio 0.9. Spectra normal. No significant plaque. LEFT CAROTID CCA Velocities: Within normal limits. ICA Velocities Peak systolic 0.74 m/s. End diastolic 0.28 m/s. Proximal ICA/CCA peak systolic ratio 1.2. Spectra normal. No significant plaque. VERTEBRAL ARTERIES: Antegrade flow. Normal waveforms. SUBCLAVIAN ARTERIES: No finding. OTHER: No other significant finding. IMPRESSION: NO HEMODYNAMICALLY SIGNIFICANT STENOSIS. COMMENT: Quality ID #[id number]: Velocity criteria are extrapolated from the diameter data as defined by t he Society of Radiologists in Ultrasound Consensus Conference. Radiology 2003: 229; 340-346. TECHNICAL DOCUMENTATION: JOB ID: [id number] E96- All Rights Reserved Reading location - IP/workstation name: [email or web address]
[2018-04-09] MEDS: CEFTRIAXONE SODIUM 2,000 MG in NORMAL SALINE 100 ML IV SCH (17:47)
[2018-04-09] MEDS ORDERED: ALBUTEROL SULFATE 0.083% NEB 2.5 MG/3 ML AMPUL NEB PRN (18:18)
[2018-04-09] MEDS ORDERED: NORMAL SALINE 1000 ML 1,000 ML IV PRN (19:00)
--- NOTE | 2018-04-09 19:46 | XCELERA REPORT ---
[address] [address] Transthoracic Echocardiogram Report Name: CHIO THAI R Age: 58 yrs Gender: Male : 1960 Patient Status: Inpatient Patient Location: [place] [address]^A Study Date: 04/09/2018 09:06 AM Height: 71 in Weight: 313 lb BSA: 2.6 m2 Procedure: A two-dimensional transthoracic echocardiogram with color flow Doppler was performed. Study Quality: Technically suboptimal. The study was technically difficult with many images being suboptimal in quality. Reason For Study: tia History: TIA. Ordering Physician: KIERAN QUIROGA Performed By: Leann Bueno Interpretation Summary There is no obvious cardiac source of embolus noted on this transthoracic echocardiogram. Follow-up with a ALISON is suggested if cardiac source is still suspected. The left ventricle is normal in size. There is normal left ventricular wall thickness. LV EF is 60% Doppler measurements suggest normal left ventricular diastolic function The left ventricular wall motion is normal. There is no thrombus. The right ventricle is grossly normal size. The right atrium is normal. The left atrial size is normal. There is no evidence of mitral valve prolapse. There is no vegetation seen on the mitral valve. There is no mitral regurgitation noted. There is mild mitral stenosis There is mild aortic stenosis There is a peak gradient of 24 mm of Hg , and mean gradient of 13 mm of Hg. No aortic regurgitation is present. There is no tricuspid stenosis. There is a trace amount of tricuspid regurgitation Right ventricular systolic pressure is normal. RSVP is equal to 28 mm of Hg , with RA mean of 5. There is no pericardial effusion. There is no obvious cardiac source of embolus noted on this transthoracic echocardiogram. Follow-up with a ALISON is suggested if cardiac source is still suspected MMode/2D Measurements & Calculations RVDd: 2.2 cm LVIDd: 4.6 cm FS: 32.5 % Ao root diam: 2.6 cm IVSd: 1.1 cm LVIDs: 3.1 cm EDV(Teich): 95.9 ml Ao root area: 5.3 cm2 LVPWd: 1.1 cm ESV(Teich): 37.4 ml LA dimension: 3.4 cm EF(Teich): 60.9 % LVOT diam: 2.0 cm LVOT area: 3.1 cm2 Doppler Measurements & Calculations MV E max kenney: MV V2 max: Ao V2 max: LV V1 max P.5 cm/sec 238.9 cm/sec 241.5 cm/sec 16.1 mmHg MV A max kenney: MV max PG: Ao max PG: LV V1 mean P.5 cm/sec 22.8 mmHg 23.3 mmHg 10.0 mmHg MV E/A: 1.7 MV V2 mean: Ao V2 mean: LV V1 max: 143.1 cm/sec 166.8 cm/sec 200.9 cm/sec MV mean PG: Ao mean PG: LV V1 mean: 10.0 mmHg 13.2 mmHg 145.0 cm/sec MV V2 VTI: 48.4 cm Ao V2 VTI: 45.5 cm LV V1 VTI: 40.7 cm MVA(VTI): 2.6 cm2 PABLO(I,D): 2.8 cm2 PABLO(V,D): 2.6 cm2 SV(LVOT): 127.2 ml PA V2 max: TR max kenney: 92.8 cm/sec 236.2 cm/sec PA max P.4 mmHg TR max P.3 mmHg Left Ventricle The left ventricle is normal in size. There is normal left ventricular wall thickness. LV EF is 60%. Left ventricular systolic function is normal. Doppler measurements suggest normal left ventricular diastolic function. The left ventricular wall motion is normal. There is no thrombus. Right Ventricle The right ventricle is grossly normal size. Atria The right atrium is normal. The left atrial size is normal. Mitral Valve There is no evidence of mitral valve prolapse. There is no vegetation seen on the mitral valve. There is mild mitral stenosis. There is no mitral regurgitation noted. Aortic Valve There is no aortic valvular vegetation. There is mild aortic stenosis. There is a peak gradient of 24 mm of Hg , and mean gradient of 13 mm of Hg. No hemodynamically significant valvular aortic stenosis. No aortic regurgitation is present. Tricuspid Valve There is no tricuspid stenosis. There is a trace amount of tricuspid regurgitation. Right ventricular systolic pressure is normal. RSVP is equal to 28 mm of Hg , with RA mean of 5. Pulmonic Valve There is no pulmonic valvular stenosis. There is no pulmonic valvular regurgitation. Great Vessels The aortic root is normal size. Effusions There is no pericardial effusion. : KIERAN QUIROGA > Sydney Friedman
[2018-04-09] MEDS: IPRATROPIUM/ALBUTEROL 0.5-2.5 MG/3 ML AMPUL NEB SCH (20:57)
--- NOTE | 2018-04-09 21:36 | PDOC PROGRESS REPORT ---
Subjective Progress Note for:: 04/09/18 Subjective:: 58-year-old male with a past medical history significant for morbid obesity, prior right sided CVA with left-sided deficit, anxiety, hypertension, diabetes mellitus, hyperlipidemia, and hypertension. Patient was previously seen in the emergency department with nonobstructive nephrolithiasis. He was discharged on Ultram. Patient described feeling weak and falling to the ground. Describes new right sided weakness. MRI of brain negative for acute stroke. Denies urinary symptoms. Clear chest xray. Sending UA and urine culture now. Reason For Visit: TIA DM HTN ANXIETY Physical Exam Vital Signs: Temp Pulse Resp BP Pulse Ox 98.8 F 88 19 151/98 H 93 04/09/18 03:00 04/09/18 06:00 04/09/18 09:04 04/09/18 09:04 04/09/18 09:04 Intake & Output 04/08/18 04/09/18 04/10/18 06:59 06:59 06:59 Output Total 300 Balance -300 General appearance: PRESENT: no acute distress, cooperative Head exam: PRESENT: atraumatic, normocephalic Eye exam: PRESENT: conjunctival injection, EOMI. ABSENT: nystagmus Ear exam: PRESENT: normal external ear exam. ABSENT: bleeding Mouth exam: PRESENT: moist. ABSENT: dry mucosa Neck exam: ABSENT: JVD, tenderness Respiratory exam: ABSENT: accessory muscle use, rales, rhonchi, stridor, wheezes Cardiovascular exam: PRESENT: RRR, +S1, +S2. ABSENT: bradycardia, irregular rhythm Pulses: ABSENT: normal carotid pulses, normal dorsalis pedis pul Vascular exam: PRESENT: normal capillary refill. ABSENT: pallor GI/Abdominal exam: ABSENT: ascites, firm, guarding, mass, Chowdhury's sign, normal bowel sounds Rectal exam: PRESENT: deferred Extremities exam: ABSENT: calf tenderness, joint swelling Musculoskeletal exam: PRESENT: full ROM. ABSENT: deformity Neurological exam: PRESENT: alert, awake, oriented to person, oriented to place , oriented to time Psychiatric exam: ABSENT: agitated, flat affect Focused psych exam: ABSENT: delusional, paranoid Skin exam: ABSENT: abrasion, mottled, normal color, pallor Results Laboratory Results: 04/09/18 05:00 04/09/18 05:00 04/09/18 04/09/1818 05:00 05:00 09:05 WBC 11.7 H RBC 4.90 Hgb 13.2 L Hct 39.6 MCV 81 MCH 27.0 MCHC 33.4 RDW 14.2 H Plt Count 169 Seg Neutrophils % 81.4 H Lymphocytes % 8.7 L Monocytes % 8.1 Eosinophils % 1.3 Basophils % 0.5 Absolute Neutrophils 9.6 H Absolute Lymphocytes 1.0 Absolute Monocytes 0.9 Absolute Eosinophils 0.1 Absolute Basophils 0.1 Sodium 140.0 Potassium 4.3 Chloride 101 Carbon Dioxide 26 Anion Gap 13 BUN 21 H Creatinine 1.33 H Est GFR ( Amer) > 60 Est GFR (Non-Af Amer) 55 L Glucose 190 H Calcium 8.9 Triglycerides 140 Cholesterol 112.09 LDL Cholesterol Direct 48 VLDL Cholesterol 28.0 HDL Cholesterol 41 Urine Color YELLOW Urine Appearance CLEAR Urine pH 5.0 Ur Specific [place] 1.016 Urine Protein NEGATIVE Urine Glucose (UA) >=500 H Urine Ketones NEGATIVE Urine Blood MODERATE H Urine Nitrite NEGATIVE Ur Leukocyte Esterase NEGATIVE Urine WBC (Auto) 3 Urine RBC (Auto) 1 04/08/18 04/08/18 04/09/18 22:45 22:45 05:00 Creatine Kinase 869 H 1186 H CK-MB (CK-2) 6.34 H Troponin I 0.065 NT-Pro-B Natriuret Pep 04/09/18 04/09/18 04/09/18 05:00 05:00 11:02 Creatine Kinase 1015 H CK-MB (CK-2) 6.10 H Troponin I 0.071 NT-Pro-B Natriuret Pep 1700 H 04/09/18 11:02 Creatine Kinase CK-MB (CK-2) 5.48 H Troponin I 0.040 NT-Pro-B Natriuret Pep Impressions: Head MRI 04/08/18 00:00 IMPRESSION: Old small right lacunar infarct with no acute intracranial imaging findings. EVIDENCE OF ACUTE STROKE: NO. Chest X-Ray 04/08/18 17:21 IMPRESSION: Cardiomegaly without CHF. Head CT 04/08/18 17:21 IMPRESSION: Old right thalamic infarct. No acute changes EVIDENCE OF ACUTE STROKE: NO. Head CTA 04/08/18 17:32 IMPRESSION: NO CTA EVIDENCE OF STENOSIS OR ANEURYSM OF THE [place]. Assessment & Plan - Diagnosis (1) TIA (transient ischemic attack) Is this a current diagnosis for this admission?: Yes Plan: MRI negative. Pending transthoracic echo result, pending ultrasound of carotid result. Does not appear to have significant right-sided deficits during examination. Possible TIA given the negative MRI finding. Also checking UA and urine culture for suspicion of urinary tract infection with his recent nephrolithiasis diagnosis. (2) Left nephrolithiasis Is this a current diagnosis for this admission?: Yes Plan: Checking urinary analysis and urine culture. Will start on empiric ceftriaxone at present. Recently diagnosed with nephrolithiasis and prior ED visit. (3) Diabetes Is this a current diagnosis for this admission?: Yes Plan: Continue current therapy and add Lantus 15 units (4) Morbid obesity Is this a current diagnosis for this admission?: Yes Plan: Encourage weight loss and caloric reduction. (5) Rhabdomyolysis Is this a current diagnosis for this admission?: Yes Plan: Received IV fluid support on admission. Carefully monitoring in the setting of known congestive heart failure. (6) Chronic renal failure Qualifiers: Chronic kidney disease stage: unspecified stage Qualified Code(s): N18.9 - Chronic kidney disease, unspecified Is this a current diagnosis for this admission?: Yes Plan: Her renal function for possible improvement. - Time Time Spent with patient: 15-24 minutes - Inpatient Certification Based on my medical assessment, after consideration of the patient's comorbidities, presenting symptoms, or acuity I expect that the services needed warrant INPATIENT care.: Yes I certify that my determination is in accordance with my understanding of Medicare's requirements for reasonable and necessary INPATIENT services [42 CFR 412.3e].: Yes Medical Necessity: Need Close Monitoring Due to Risk of Patient Decompensation
[2018-04-09] MEDS: PHARMACY COMMUNICATION ORDER MC SCH (23:48)
[2018-04-10] MEDS ORDERED: BACLOFEN 20 MG TABLET PO ONE (00:05)
[2018-04-10] MEDS: IPRATROPIUM/ALBUTEROL 0.5-2.5 MG/3 ML AMPUL NEB SCH ×2 (01:54→07:44)
[2018-04-10] MEDS: BACLOFEN 20 MG TABLET PO SCH ×3 (05:29→21:56)
[2018-04-10 05:31] LABS: HEMATOCRIT 38.4 % (37.9-51.0); HEMOGLOBIN 12.9 g/dL (13.5-17.0); MEAN CORPUSCULAR HEMOGLOBIN 27.2 pg (27.0-33.4); MEAN CORPUSCULAR HGB CONC 33.7 g/dL (32.0-36.0); MEAN CORPUSCULAR VOLUME 81 fl (80-97); PLATELET COUNT 161 10^3/uL (150-450); RED BLOOD COUNT 4.75 10^6/uL (4.35-5.55); RED CELL DISTRIBUTION WIDTH 14.1 % (11.5-14.0); WHITE BLOOD COUNT 8.7 10^3/uL (4.0-10.5)
[2018-04-10] MEDS: HEPARIN SOD (PORCINE) 5,000 UNIT/ML 1 ML SYRINGE SUBCUT SCH ×3 (05:31→21:58)
[2018-04-10 05:42] LABS: ALBUMIN 3.6 g/dL (3.5-5.0); ANION GAP 12 (5-19); BLOOD UREA NITROGEN 20 mg/dL (7-20); CALCIUM 8.7 mg/dL (8.4-10.2); CARBON DIOXIDE 23 mmol/L (22-30); CHLORIDE 105 mmol/L (98-107); GLUCOSE 203 mg/dL (75-110); PHOSPHORUS 3.1 mg/dL (2.5-4.5); POTASSIUM 4.4 mmol/L (3.6-5.0); SODIUM 140.2 mmol/L (137-145)
[2018-04-10] MEDS: INSULIN LISPRO 100 UNIT/ML 3 ML VIAL SUBCUT PRN ×4 (07:40→21:57)
--- NOTE | 2018-04-10 07:42 | EKG REPORT ---
SEVERITY:- ABNORMAL ECG - SINUS TACHYCARDIA PROBABLE LEFT ATRIAL ABNORMALITY RBBB AND LAFB : Confirmed by: Petey Choudhary MD 10-Apr-2018 07:41:20
[2018-04-10] MEDS ORDERED: INSULIN GLARGINE,HUM.REC.ANLOG 300 UNIT/3 ML INSULN.PEN SUBCUT SCH (10:00)
[2018-04-10] MEDS ORDERED: IPRATROPIUM/ALBUTEROL 0.5-2.5 MG/3 ML AMPUL NEB PRN (10:58)
[2018-04-10] MEDS: LIDOCAINE 5% (700 MG) TRANSDERMAL ADH..PATCH TP SCH (12:34)
[2018-04-10] MEDS: ASPIRIN 325 MG TABLET, ENT COATED PO SCH (12:34)
[2018-04-10] MEDS: METOPROLOL TARTRATE 25 MG TABLET PO SCH ×2 (12:35→21:54)
[2018-04-10] MEDS: TAMSULOSIN HCL 0.4 MG CAP.SR.24H PO SCH (12:35)
[2018-04-10] MEDS: INSULIN GLARGINE,HUM.REC.ANLOG 300 UNIT/3 ML INSULN.PEN SUBCUT SCH (12:37)
[2018-04-10] MEDS: TIOTROPIUM BROMIDE DPI 5 CAP/KIT (18 MCG/CAP) IH SCH (12:38)
[2018-04-10] MEDS: CEFTRIAXONE SODIUM 2,000 MG in NORMAL SALINE 100 ML IV SCH (14:02)
[2018-04-10] MEDS: ATORVASTATIN CALCIUM 40 MG TABLET PO SCH (21:56)
[2018-04-10] MEDS ORDERED: BACLOFEN 20 MG TABLET PO SCH (22:00)
--- NOTE | 2018-04-10 23:13 | PDOC PROGRESS REPORT ---
Subjective Progress Note for:: 04/10/18 Subjective:: 58-year-old male with a past medical history significant for morbid obesity, prior right sided CVA with left-sided deficit, anxiety, hypertension, diabetes mellitus, hyperlipidemia, and hypertension. Patient was previously seen in the emergency department with nonobstructive nephrolithiasis. He was discharged on Ultram. Patient described feeling weak and falling to the ground. Describes new right sided weakness at the time of admission. MRI of brain negative for acute stroke. This morning patient's spasticity is in his left upper extremity. Right arm does not appear to be weak no exam. Clinically he appears to be improving on empiric antibiotics. Unclear source of possible infection. PT, OT evaluated and recommend SNF rehab. Patient is in agreement with this. D/C emergency planner was made aware of this. Once placement is obtained, patient can discharge out of the hospital. Reason For Visit: TIA DM HTN ANXIETY Physical Exam Vital Signs: Temp Pulse Resp BP Pulse Ox 98.1 F 101 H 19 154/90 H 95 04/10/18 19:41 04/10/18 19:41 04/10/18 19:41 04/10/18 19:41 04/10/18 19:41 Intake & Output 04/09/18 04/10/18 04/11/18 06:59 06:59 06:59 Intake Total 500 937 Output Total 1375 850 Balance -875 87 Weight 145.8 kg General appearance: PRESENT: mild distress, morbidly obese. ABSENT: no acute distress Head exam: PRESENT: atraumatic, normocephalic Eye exam: PRESENT: EOMI, PERRLA Mouth exam: PRESENT: moist. ABSENT: dry mucosa Throat exam: ABSENT: post pharyngeal erythema, tonsillar exudate Respiratory exam: ABSENT: accessory muscle use, rales, rhonchi, wheezes Cardiovascular exam: PRESENT: RRR, +S1, +S2 Pulses: PRESENT: normal radial pulses, normal dorsalis pedis pul Vascular exam: PRESENT: normal capillary refill. ABSENT: pallor GI/Abdominal exam: PRESENT: soft. ABSENT: mass, rigid Extremities exam: ABSENT: calf tenderness, joint swelling Musculoskeletal exam: PRESENT: full ROM. ABSENT: ambulatory Neurological exam: PRESENT: alert, oriented to person, oriented to place, oriented to time, CN II-XII grossly intact Psychiatric exam: ABSENT: agitated, flat affect Focused psych exam: ABSENT: catatonic, paranoid Skin exam: ABSENT: abrasion, mottled Results Laboratory Results: 04/10/18 04:36 04/10/18 04:36 04/10/18 04/10/18 04/10/18 04:36 04:36 04:36 WBC 8.7 RBC 4.75 Hgb 12.9 L Hct 38.4 MCV 81 MCH 27.2 MCHC 33.7 RDW 14.1 H Plt Count 161 Sodium 140.2 Potassium 4.4 Chloride 105 Carbon Dioxide 23 Anion Gap 12 BUN 20 Creatinine 1.20 Est GFR ( Amer) > 60 Est GFR (Non-Af Amer) > 60 Glucose 203 H Calcium 8.7 Phosphorus 3.1 Albumin 3.6 Vitamin B12 368.0 04/08/18 04/08/18 04/09/18 22:45 22:45 05:00 Creatine Kinase 869 H 1186 H CK-MB (CK-2) 6.34 H Troponin I 0.065 NT-Pro-B Natriuret Pep 04/09/18 04/09/18 04/09/18 05:00 05:00 11:02 Creatine Kinase 1015 H CK-MB (CK-2) 6.10 H Troponin I 0.071 NT-Pro-B Natriuret Pep 1700 H 04/09/18 11:02 Creatine Kinase CK-MB (CK-2) 5.48 H Troponin I 0.040 NT-Pro-B Natriuret Pep Impressions: Head MRI 04/08/18 00:00 IMPRESSION: Old small right lacunar infarct with no acute intracranial imaging findings. EVIDENCE OF ACUTE STROKE: NO. Chest X-Ray 04/08/18 17:21 IMPRESSION: Cardiomegaly without CHF. Head CT 04/08/18 17:21 IMPRESSION: Old right thalamic infarct. No acute changes EVIDENCE OF ACUTE STROKE: NO. Head CTA 04/08/18 17:32 IMPRESSION: NO CTA EVIDENCE OF STENOSIS OR ANEURYSM OF [place]. Carotid Doppler Study 04/09/18 00:00 IMPRESSION: NO HEMODYNAMICALLY SIGNIFICANT STENOSIS. Assessment & Plan - Diagnosis (1) TIA (transient ischemic attack) Is this a current diagnosis for this admission?: Yes Plan: MRI negative for stroke findings. TTE with normal function, no vegatations U/S carotids: no stenosis no growth on cultures. Improving leukocytosis on empiric antibiotics: unclear source of infection. recent nephrolithiasis, suspicous for un-identified UTI (2) Left nephrolithiasis Is this a current diagnosis for this admission?: Yes Plan: continue empiric ceftriaxone at present. Recently diagnosed with nephrolithiasis and prior ED visit. no growth on culture (3) Diabetes Is this a current diagnosis for this admission?: Yes Plan: increase lantus to 30u (4) Morbid obesity Is this a current diagnosis for this admission?: Yes Plan: Encourage weight loss and caloric reduction. (5) Rhabdomyolysis Is this a current diagnosis for this admission?: Yes Plan: Received IV fluid support on admission for mild rhabdomyolysis. Carefully monitoring volume status in the setting of known congestive heart failure. (6) Chronic renal failure Qualifiers: Chronic kidney disease stage: unspecified stage Qualified Code(s): N18.9 - Chronic kidney disease, unspecified Is this a current diagnosis for this admission?: Yes Plan: monitor renal function for possible improvement. - Time Time Spent with patient: 15-24 minutes - Inpatient Certification Based on my medical assessment, after consideration of the patient's comorbidities, presenting symptoms, or acuity I expect that the services needed warrant INPATIENT care.: Yes I certify that my determination is in accordance with my understanding of Medicare's requirements for reasonable and necessary INPATIENT services [42 CFR 412.3e].: Yes Medical Necessity: Need Close Monitoring Due to Risk of Patient Decompensation
[2018-04-11 05:11] LABS: HEMATOCRIT 38.7 % (37.9-51.0); HEMOGLOBIN 13.1 g/dL (13.5-17.0); MEAN CORPUSCULAR HEMOGLOBIN 27.4 pg (27.0-33.4); MEAN CORPUSCULAR HGB CONC 33.9 g/dL (32.0-36.0); MEAN CORPUSCULAR VOLUME 81 fl (80-97); PLATELET COUNT 150 10^3/uL (150-450); RED BLOOD COUNT 4.79 10^6/uL (4.35-5.55); RED CELL DISTRIBUTION WIDTH 14.3 % (11.5-14.0); WHITE BLOOD COUNT 7.5 10^3/uL (4.0-10.5)
[2018-04-11 05:37] LABS: ALBUMIN 3.4 g/dL (3.5-5.0); ANION GAP 12 (5-19); BLOOD UREA NITROGEN 20 mg/dL (7-20); CALCIUM 8.8 mg/dL (8.4-10.2); CARBON DIOXIDE 23 mmol/L (22-30); CHLORIDE 106 mmol/L (98-107); GLUCOSE 177 mg/dL (75-110); PHOSPHORUS 3.2 mg/dL (2.5-4.5); POTASSIUM 4.3 mmol/L (3.6-5.0); SODIUM 141.4 mmol/L (137-145)
[2018-04-11] MEDS ORDERED: BACLOFEN 20 MG TABLET ONE (05:43)
[2018-04-11] MEDS: BACLOFEN 20 MG TABLET PO SCH ×3 (06:00→22:13)
[2018-04-11] MEDS: HEPARIN SOD (PORCINE) 5,000 UNIT/ML 1 ML SYRINGE SUBCUT SCH ×3 (06:01→23:00)
[2018-04-11] MEDS: PHARMACY COMMUNICATION ORDER MC SCH ×2 (08:00→22:14)
[2018-04-11] MEDS: INSULIN LISPRO 100 UNIT/ML 3 ML VIAL SUBCUT PRN ×3 (08:04→22:12)
[2018-04-11] MEDS: METOPROLOL TARTRATE 25 MG TABLET PO SCH ×2 (10:19→22:13)
[2018-04-11] MEDS: ASPIRIN 325 MG TABLET, ENT COATED PO SCH (10:19)
[2018-04-11] MEDS: TAMSULOSIN HCL 0.4 MG CAP.SR.24H PO SCH (10:19)
[2018-04-11] MEDS: INSULIN GLARGINE,HUM.REC.ANLOG 300 UNIT/3 ML INSULN.PEN SUBCUT SCH (10:20)
[2018-04-11] MEDS: TIOTROPIUM BROMIDE DPI 5 CAP/KIT (18 MCG/CAP) IH SCH (10:20)
[2018-04-11] MEDS: LIDOCAINE 5% (700 MG) TRANSDERMAL ADH..PATCH TP SCH (10:33)
--- NOTE | 2018-04-11 16:28 | PDOC PROGRESS REPORT ---
Subjective Progress Note for:: 04/11/18 - Seen on rounds this morning Subjective:: Patient states that he feels better today but has since left arm spasticity- tell me that this is not new and this is something chronic which has been going on for months to years now. Reason For Visit: TIA DMII HTN ANXIETY Physical Exam Vital Signs: Temp Pulse Resp BP Pulse Ox 97.8 F 91 16 134/88 H 98 04/10/18 23:29 04/11/18 14:00 04/11/18 13:31 04/11/18 08:00 04/11/18 13:31 Intake & Output 04/10/18 04/11/18 04/12/18 06:59 06:59 06:59 Intake Total 500 987 118 Output Total 1375 1450 350 Balance -875 -463 -232 Weight 321 lb 6.943 oz 317 lb 7.45 oz General appearance: PRESENT: no acute distress, morbidly obese Head exam: PRESENT: atraumatic, normocephalic Eye exam: PRESENT: EOMI, PERRLA. ABSENT: scleral icterus Ear exam: PRESENT: normal external ear exam Mouth exam: PRESENT: tongue midline Neck exam: ABSENT: tracheal deviation Respiratory exam: PRESENT: clear to auscultation juan, symmetrical Cardiovascular exam: PRESENT: +S1, +S2 Pulses: PRESENT: +2 pedal pulses bilateral GI/Abdominal exam: PRESENT: normal bowel sounds, soft. ABSENT: tenderness Extremities exam: ABSENT: joint swelling, pedal edema, +2 edema Neurological exam: PRESENT: alert, awake, oriented to person, oriented to place , oriented to time, oriented to situation, CN II-XII grossly intact Skin exam: PRESENT: dry, warm Results Laboratory Results: 04/11/18 04:44 04/11/18 04:44 04/11/18 04/11/18 04:44 04:44 WBC 7.5 RBC 4.79 Hgb 13.1 L Hct 38.7 MCV 81 MCH 27.4 MCHC 33.9 RDW 14.3 H Plt Count 150 Sodium 141.4 Potassium 4.3 Chloride 106 Carbon Dioxide 23 Anion Gap 12 BUN 20 Creatinine 1.09 Est GFR ( Amer) > 60 Est GFR (Non-Af Amer) > 60 Glucose 177 H Calcium 8.8 Phosphorus 3.2 Albumin 3.4 L 08/15/18 09:05 Clean Catch Midstream Urine Culture - Final Mixed Urogenital Geovanna 04/08/18 04/08/18 04/09/18 22:45 22:45 05:00 Creatine Kinase 869 H 1186 H CK-MB (CK-2) 6.34 H Troponin I 0.065 NT-Pro-B Natriuret Pep 04/09/18 04/09/18 04/09/18 05:00 05:00 11:02 Creatine Kinase 1015 H CK-MB (CK-2) 6.10 H Troponin I 0.071 NT-Pro-B Natriuret Pep 1700 H 04/09/18 11:02 Creatine Kinase CK-MB (CK-2) 5.48 H Troponin I 0.040 NT-Pro-B Natriuret Pep Impressions: Head MRI 04/08/18 00:00 IMPRESSION: Old small right lacunar infarct with no acute intracranial imaging findings. EVIDENCE OF ACUTE STROKE: NO. Chest X-Ray 04/08/18 17:21 IMPRESSION: Cardiomegaly without CHF. Head CT 04/08/18 17:21 IMPRESSION: Old right thalamic infarct. No acute changes EVIDENCE OF ACUTE STROKE: NO. Head CTA 04/08/18 17:32 IMPRESSION: NO CTA EVIDENCE OF STENOSIS OR ANEURYSM OF [place]. Carotid Doppler Study 04/09/18 00:00 IMPRESSION: NO HEMODYNAMICALLY SIGNIFICANT STENOSIS. Assessment & Plan - Diagnosis (1) Left nephrolithiasis Is this a current diagnosis for this admission?: Yes (2) Chronic renal failure Qualifiers: Chronic kidney disease stage: unspecified stage Qualified Code(s): N18.9 - Chronic kidney disease, unspecified Is this a current diagnosis for this admission?: Yes (3) TIA (transient ischemic attack) Is this a current diagnosis for this admission?: Yes (4) Rhabdomyolysis Is this a current diagnosis for this admission?: Yes (5) Diabetes Is this a current diagnosis for this admission?: Yes (6) Morbid obesity Is this a current diagnosis for this admission?: Yes - Plan Summary Plan Summary: TIA-he had stroke workup with CT and MRI of the head. Both were negative. His ultrasound of the carotid did not show any stenosis. At this time I am not sure if this was a TIA or some other causes of his weakness which she complained of 1 day of admission. At this time we will continue with aspirin 325 mg daily. Antibiotics were started for elevated white count for an unknown source of infection. He received IV antibiotics for 3 days and he has remained afebrile and his blood culture has stayed negative. At this time I am going to stop the antibiotics because I am not sure what we are treating and he has received some doses of IV antibiotics already. He was evaluated by physical therapy and recommended rehab and he has a bed placement ready for discharge tomorrow. Diabetes-his sugars have been more than 200 at times. At home he is on 60 units of Lantus and here he has been receiving 30 units. I will increase his Lantus tonight to 40 units and see how he does. I have discussed and counseled him about diabetic lifestyle changes and diet. Morbid obesity-counseled and discussed with him about weight loss and diet and lifestyle modifications.
[2018-04-11] MEDS ORDERED: INSULIN GLARGINE,HUM.REC.ANLOG 300 UNIT/3 ML INSULN.PEN SUBCUT SCH (22:00)
[2018-04-11] MEDS: ATORVASTATIN CALCIUM 40 MG TABLET PO SCH (22:13)
[2018-04-12 03:19] LABS: ANION GAP 11 (5-19); BLOOD UREA NITROGEN 17 mg/dL (7-20); CALCIUM 8.8 mg/dL (8.4-10.2); CARBON DIOXIDE 24 mmol/L (22-30); CHLORIDE 106 mmol/L (98-107); GLUCOSE 160 mg/dL (75-110); POTASSIUM 4.1 mmol/L (3.6-5.0); SODIUM 141.2 mmol/L (137-145)
[2018-04-12] MEDS: HEPARIN SOD (PORCINE) 5,000 UNIT/ML 1 ML SYRINGE SUBCUT SCH ×2 (05:43→13:08)
[2018-04-12] MEDS: BACLOFEN 20 MG TABLET PO SCH ×2 (05:43→13:12)
[2018-04-12] MEDS: INSULIN LISPRO 100 UNIT/ML 3 ML VIAL SUBCUT PRN ×2 (08:44→12:53)
[2018-04-12] MEDS: METOPROLOL TARTRATE 25 MG TABLET PO SCH (10:03)
[2018-04-12] MEDS: ASPIRIN 325 MG TABLET, ENT COATED PO SCH (10:03)
[2018-04-12] MEDS: TAMSULOSIN HCL 0.4 MG CAP.SR.24H PO SCH (10:03)
[2018-04-12] MEDS: LIDOCAINE 5% (700 MG) TRANSDERMAL ADH..PATCH TP SCH (10:03)
[2018-04-12] MEDS: TIOTROPIUM BROMIDE DPI 5 CAP/KIT (18 MCG/CAP) IH SCH (10:04)
--- NOTE | 2018-04-12 11:34 | PDOC DISCHARGE SUMMARY ---
General - Admit/Disc Date/PCP Admission Date/Primary Care Provider: 04/08/18 20:08 ZOIE LANGE MD Discharge Date: 04/12/18 - seen on rounds this morning - Discharge Diagnosis (1) TIA (transient ischemic attack) Is this a current diagnosis for this admission?: Yes (2) Rhabdomyolysis Is this a current diagnosis for this admission?: Yes (3) Left nephrolithiasis Is this a current diagnosis for this admission?: Yes (4) Chronic renal failure Is this a current diagnosis for this admission?: Yes (5) Diabetes Is this a current diagnosis for this admission?: Yes (6) Morbid obesity Is this a current diagnosis for this admission?: Yes - Additional Information Resuscitation Status: Full Code Prescriptions: Aspirin [Ecotrin 325 mg EC Tablet] 325 mg PO DAILY #30 tabec Tamsulosin HCl [Flomax 0.4 mg Cap.sr] 0.4 mg PO DAILY #30 cap.sr.24h Home Medications: Baclofen [Baclofen 20 mg Tablet] 20 mg PO TID 04/08/18 Cholecalciferol (Vitamin D3) [Vitamin D3 1000 Unit Tablet] 1,000 units PO DAILY 04/08/18 Dulaglutide [Trulicity] 1.5 mg INJ QUIGLEY@1000 04/08/18 Glipizide [Glucotrol 10 mg Tablet] 10 mg PO BID 04/08/18 Hydrochlorothiazide [Hydrodiuril 12.5 mg Capsule] 12.5 mg PO DAILY 04/08/18 Insulin Glargine,Hum.rec.anlog [Lantus Insulin 100 Unit/1 ml 10 ml] 60 units SQ QHS 04/08/18 Lisinopril [Prinivil] 20 mg PO BID 04/08/18 Magnesium Oxide [Mag-Ox 400 mg Tablet] 400 mg PO DAILY 04/08/18 Pravastatin Sodium [Pravachol] 20 mg PO QHS 04/08/18 Tiotropium [place] [Spiriva [place] 18 mcg/dose (30 Dose)] 1 cap IH DAILY Verapamil HCl [Calan 120 mg Tablet] 120 mg PO DAILY 04/08/18 Aspirin [Ecotrin 325 mg EC Tablet] 325 mg PO DAILY #30 tabec 04/12/18 Baclofen [Baclofen 20 mg Tablet] 20 mg PO Q8 tablet 04/12/18 Glucagon,Human Recombinant [Glucagen Inj 1 mg Vial] 1 mg IM PRN PRN vial Ipratropium/Albuterol Sulfate [Duoneb 3 ml Ampul] 3 ml NEB Q8HP PRN vial.neb Tamsulosin HCl [Flomax 0.4 mg Cap.sr] 0.4 mg PO DAILY #30 cap.sr.24h 04/12/18 Tiotropium [place] [Spiriva Handihaler 5 Cap/Kit (18 Mcg/Cap)] 1 cap IH DAILY kit 04/12/18 History of Present Illness History of Present Illness: THAI BARROSO is a 58 year old male who was admitted so suspected TIA. please see initial H&P for full assessment and plan Hospital Course Hospital Course: TIA-he had stroke workup with CT and MRI of the head. Both were negative. His ultrasound of the carotid did not show any stenosis. At this time I am not sure if this was a TIA or some other causes of his weakness which she complained of 1 day of admission. At this time we will continue with aspirin 325 mg daily- he will need to talk to his PCP about continuing this after 30 days or not. Antibiotics were started for elevated white count for an unknown source of infection. He received IV antibiotics for 3 days and he has remained afebrile and his blood culture has stayed negative. At this time I stopped the antibiotics yesterday because I am not sure what we are treating and he has received some doses of IV antibiotics already. he remained afebrile. Rhab- his CK was >1000 initially. he received high amounts IV fluids and today his CK is around 200. i spoke to him about continued PO water intake. due to his renal stone- he was started on flomax- he needs Urology follow up and he knows this He was evaluated by physical therapy and recommended rehab and i was informed by CM that he has a bed available for discharge today. Diabetes-his sugars have been more than 200 at times. At home he is on 60 units of long acting insulin and here he has been receiving 30 units of lantus. I increased his Lantus last night to 40 units and his glucose was improved this morning. I have discussed and counseled him about diabetic lifestyle changes and diet. since he's going to rehab - i will continue his home dose of insulin but since his meals will be controlled- rehab should consider a lower dose for the duration he's there. Morbid obesity-counseled and discussed with him about weight loss and diet and lifestyle modifications. told him to follow up with his PCP within 1 week of discharge from rehab patient verbalized understanding of all these instructions today. Physical Exam Vital Signs: Temp Pulse Resp BP Pulse Ox 97.9 F 84 14 129/90 H 98 04/11/18 23:49 04/12/18 09:07 04/12/18 09:07 04/11/18 23:49 04/12/18 09:07 Intake & Output 04/11/18 04/12/18 04/13/18 06:59 06:59 06:59 Intake Total 987 518 Output Total 1450 1050 Balance -463 -532 Weight 317 lb 7.45 oz 313 lb 11.485 oz General appearance: PRESENT: no acute distress, morbidly obese Head exam: PRESENT: atraumatic, normocephalic Eye exam: PRESENT: EOMI, PERRLA. ABSENT: scleral icterus Ear exam: PRESENT: normal external ear exam Mouth exam: PRESENT: tongue midline Neck exam: ABSENT: tracheal deviation Respiratory exam: PRESENT: decreased breath sounds - slightly decreased at the bases- ?body habitus vs poor inspiratory effort, symmetrical Cardiovascular exam: PRESENT: +S1, +S2 Pulses: PRESENT: +2 pedal pulses bilateral GI/Abdominal exam: PRESENT: normal bowel sounds, soft. ABSENT: tenderness Extremities exam: ABSENT: joint swelling, pedal edema Neurological exam: PRESENT: alert, awake, oriented to person, oriented to place , oriented to time, oriented to situation, CN II-XII grossly intact Skin exam: PRESENT: dry, warm Results Laboratory Results: 04/11/18 04:44 04/12/18 02:52 04/12/18 02:52 Sodium 141.2 Potassium 4.1 Chloride 106 Carbon Dioxide 24 Anion Gap 11 BUN 17 Creatinine 0.86 Est GFR ( Amer) > 60 Est GFR (Non-Af Amer) > 60 Glucose 160 H Calcium 8.8 04/09/18 09:05 Clean Catch Midstream Urine Culture - Final Mixed Urogenital Geovanna 04/08/18 04/08/18 04/09/18 22:45 22:45 05:00 Creatine Kinase 869 H 1186 H CK-MB (CK-2) 6.34 H Troponin I 0.065 NT-Pro-B Natriuret Pep 04/09/18 04/09/18 04/09/18 05:00 05:00 11:02 Creatine Kinase 1015 H CK-MB (CK-2) 6.10 H Troponin I 0.071 NT-Pro-B Natriuret Pep 1700 H 04/09/18 04/12/18 11:02 09:17 Creatine Kinase 265 H CK-MB (CK-2) 5.48 H Troponin I 0.040 NT-Pro-B Natriuret Pep Impressions: Head MRI 04/08/18 00:00 IMPRESSION: Old small right lacunar infarct with no acute intracranial imaging findings. EVIDENCE OF ACUTE STROKE: NO. Chest X-Ray 04/08/18 17:21 IMPRESSION: Cardiomegaly without CHF. Head CT 04/08/18 17:21 IMPRESSION: Old right thalamic infarct. No acute changes EVIDENCE OF ACUTE STROKE: NO. Head CTA 04/08/18 17:32 IMPRESSION: NO CTA EVIDENCE OF STENOSIS OR ANEURYSM OF THE [place]. Carotid Doppler Study 04/09/18 00:00 IMPRESSION: NO HEMODYNAMICALLY SIGNIFICANT STENOSIS. Qualifiers - * PATIENT BEING DISCHARGED WITH ANY OF THE FOLLOWING DIAGNOSIS: No - TIA- he will be on ASA 325mg VTE patient discharged on overlapping Therapy?: No Plan Discharge Plan: discharged to rehab facility Time Spent: Greater than 30 Minutes - discharged to rehab facility
[2018-04-12 15:02] VITALS: BP 155/89
== END 2018-04-12 16:54 | DRG 69 ==
LOC: ER 16:30 → OBSVTOIN 20:08 → EH 20:08 → 3N 04-09 14:57
PROVIDERS: ADMIT Internal Medicine; ATTEND Internal Medicine
DX: G45.9 Transient cerebral ischemic attack, unspecified (principal); Z68.41 Body mass index [BMI] 40.0-44.9, adult; M62.82 Rhabdomyolysis; I69.354 Hemiplegia and hemiparesis following cerebral infarction affecting left non-dominant side; N20.0 Calculus of kidney; I12.9 Hypertensive chronic kidney disease with stage 1 through stage 4 chronic kidney disease, or unspecified chronic kidney disease; E78.5 Hyperlipidemia, unspecified; J44.9 Chronic obstructive pulmonary disease, unspecified; F41.1 Generalized anxiety disorder; F17.200 Nicotine dependence, unspecified, uncomplicated; N18.3 Chronic kidney disease, stage 3 (moderate); E66.01 Morbid (severe) obesity due to excess calories; F12.90 Cannabis use, unspecified, uncomplicated; E11.22 Type 2 diabetes mellitus with diabetic chronic kidney disease; I25.2 Old myocardial infarction; Z88.8 Allergy status to other drugs, medicaments and biological substances; Z79.899 Other long term (current) drug therapy; Z82.49 Family history of ischemic heart disease and other diseases of the circulatory system; Z82.3 Family history of stroke; Z82.61 Family history of arthritis; Z79.4 Long term (current) use of insulin
CPT/HCPCS: 36415; 70450; 70496; 70551; 71045; 80048; 80053; 80061; 80069; 81001; 82550; 82553; 82607; 82962; 83036; 83880; 84484; 85025; 85027; 85610; 87040; 87086; 93005; 93010; 93306; 93880; 94640; 99285; J0696; J1644; J1815; J3490; J7030; J7620

== ENCOUNTER → 2018-06-19 | Outpatient (CLI) | payer MEDICAID ==
[2018-06-19 12:31] LABS: BLOOD UREA NITROGEN 28 mg/dL (7-20); CALCIUM 9.9 mg/dL (8.4-10.2); CARBON DIOXIDE 23 mmol/L (22-30); CHLORIDE 100 mmol/L (98-107); CREATINE KINASE 172 U/L (55-170); GLUCOSE 154 mg/dL (75-110); POTASSIUM 4.8 mmol/L (3.6-5.0); SODIUM 143.1 mmol/L (137-145)
[2018-06-19 12:43] LABS: ANION GAP 20 (5-19)
== END ==
LOC: OD 09:25
PROVIDERS: ATTEND Internal Medicine Cardiovascular Disease
DX: I10 Essential (primary) hypertension (principal); M62.82 Rhabdomyolysis
CPT/HCPCS: 36415; 80048; 82550

== ENCOUNTER → 2018-10-01 | Outpatient (CLI) | payer MEDICAID ==
[2018-10-01 11:00] LABS: ALANINE AMINOTRANSFERASE 33 U/L (21-72); ALBUMIN 4.6 g/dL (3.5-5.0); ALKALINE PHOSPHATASE 81 U/L (38-126); ANION GAP 13 (5-19); ASPARTATE AMINO TRANSFERASE 24 U/L (17-59); BILIRUBIN,DIRECT 0.2 mg/dL (0.0-0.4); BILIRUBIN,TOTAL 0.6 mg/dL (0.2-1.3); BLOOD UREA NITROGEN 19 mg/dL (7-20); CALCIUM 9.7 mg/dL (8.4-10.2); CARBON DIOXIDE 27 mmol/L (22-30); CHLORIDE 100 mmol/L (98-107); CHOLESTEROL 149.05 mg/dL (0-200); CREATINE KINASE 100 U/L (55-170); GLUCOSE 204 mg/dL (75-110); SODIUM 139.8 mmol/L (137-145); TOTAL PROTEIN 7.4 g/dL (6.3-8.2); TRIGLYCERIDES 121 mg/dL (<150)
[2018-10-01 11:12] LABS: DIRECT LDL 93 mg/dL (<100)
== END ==
LOC: OD 09:26
PROVIDERS: ATTEND Physician Assistant
DX: M62.82 Rhabdomyolysis (principal); I12.9 Hypertensive chronic kidney disease with stage 1 through stage 4 chronic kidney disease, or unspecified chronic kidney disease; N18.3 Chronic kidney disease, stage 3 (moderate); E78.5 Hyperlipidemia, unspecified; E83.42 Hypomagnesemia; Z79.899 Other long term (current) drug therapy
CPT/HCPCS: 36415; 80048; 80061; 80076; 82550; 83735

== ENCOUNTER → 2018-12-17 | Outpatient (CLI) | payer MEDICAID ==
[2018-12-17 09:26] LABS: ALANINE AMINOTRANSFERASE 29 U/L (21-72); ALBUMIN 4.1 g/dL (3.5-5.0); ALKALINE PHOSPHATASE 68 U/L (38-126); ANION GAP 8 (5-19); ASPARTATE AMINO TRANSFERASE 23 U/L (17-59); BILIRUBIN,DIRECT 0.2 mg/dL (0.0-0.4); BILIRUBIN,TOTAL 0.6 mg/dL (0.2-1.3); BLOOD UREA NITROGEN 23 mg/dL (7-20); CALCIUM 9.6 mg/dL (8.4-10.2); CARBON DIOXIDE 27 mmol/L (22-30); CHLORIDE 102 mmol/L (98-107); CHOLESTEROL 118.33 mg/dL (0-200); GLUCOSE 221 mg/dL (75-110); POTASSIUM 5.3 mmol/L (3.6-5.0); SODIUM 137.3 mmol/L (137-145); TOTAL PROTEIN 7.2 g/dL (6.3-8.2); TRIGLYCERIDES 101 mg/dL (<150)
[2018-12-17 09:37] LABS: DIRECT LDL 70 mg/dL (<100)
== END ==
LOC: LAB 08:43
PROVIDERS: ATTEND Physician Assistant
DX: E78.5 Hyperlipidemia, unspecified (principal); I10 Essential (primary) hypertension; Z79.899 Other long term (current) drug therapy
CPT/HCPCS: 36415; 80048; 80061; 80076

== ENCOUNTER 2019-02-06 07:19 | Emergency (ER) | payer MEDICAID ==
--- NOTE | 2019-02-06 11:28 | RADIOLOGY REPORT (SQ) ---
EXAM DESCRIPTION: U/S SCROTUM W/O DOPPLER COMPLETED DATE/TIME: 02/06/2019 11:16 am REASON FOR STUDY: Left lateral scrotal mass COMPARISON: None. TECHNIQUE: Static and realtime dos santos scale imaging of the scrotum and testes. Selected color Doppler and spectral images recorded to document blood flow. LIMITATIONS: None. FINDINGS: RIGHT: TESTICLE: Normal size. Normal echotexture. Normal blood flow. No mass. EPIDIDYMIS: Normal. HYDROCELE OR VARICOCELE: There is a small right hydrocele with debris. HERNIA OR EXTRA-TESTICULAR MASS: No. OTHER: No other significant finding. LEFT: TESTICLE: Normal size. Normal echotexture. Normal blood flow. No mass. EPIDIDYMIS: Normal. HYDROCELE OR VARICOCELE: No. HERNIA OR EXTRA-TESTICULAR MASS: No. OTHER: There is a focal heterogeneous collection in the left inguinal region. This appears to repres ent a fluid collection with internal debris. Mild vascularity is noted along the margin of the colle ction. Suspect developing infectious or inflammatory process. This measures 2.4 x 2.0 x 1.5 cm. IMPRESSION: 1. Complex fluid collection in the left inguinal region measured 2.4 x 2.0 x 1.5 cm. Garcia spect developing abscess. 2. Small right hydrocele with debris. TECHNICAL DOCUMENTATION: JOB ID: [id number]- All Rights Reserved Reading location - IP/workstation name: [email or web address]
[2019-02-06 11:33] LABS: ABSOLUTE BASOPHILS # (AUTO) 0.1 10^3/uL (0.0-0.2); ABSOLUTE EOSINOPHILS # (AUTO) 0.3 10^3/uL (0.0-0.6); ABSOLUTE LYMPHOCYTES (AUTO) 1.4 10^3/uL (0.5-4.7); ABSOLUTE MONOCYTES (AUTO) 0.8 10^3/uL (0.1-1.4); ABSOLUTE NEUT (AUTO) 7.4 10^3/uL (1.7-8.2); BASOPHILS % (AUTO) 0.6 % (0-2); EOSINOPHILS % (AUTO) 3.3 % (0-6); HEMATOCRIT 44.8 % (37.9-51.0); HEMOGLOBIN 14.9 g/dL (13.5-17.0); LYMPHOCYTES % (AUTO) 14.2 % (13-45); MEAN CORPUSCULAR HEMOGLOBIN 27.2 pg (27.0-33.4); MEAN CORPUSCULAR HGB CONC 33.1 g/dL (32.0-36.0); MEAN CORPUSCULAR VOLUME 82 fl (80-97); MONOCYTES % (AUTO) 7.8 % (3-13); PLATELET COUNT 189 10^3/uL (150-450); RED BLOOD COUNT 5.46 10^6/uL (4.35-5.55); RED CELL DISTRIBUTION WIDTH 13.8 % (11.5-14.0); SEGMENTED NEUTROPHILS % (AUTO) 74.1 % (42-78); TOTAL CELLS COUNTED % (AUTO) 100 %
[2019-02-06 11:48] LABS: ALANINE AMINOTRANSFERASE 27 U/L (21-72); ALBUMIN 4.2 g/dL (3.5-5.0); ALKALINE PHOSPHATASE 75 U/L (38-126); ANION GAP 10 (5-19); ASPARTATE AMINO TRANSFERASE 18 U/L (17-59); BILIRUBIN,DIRECT 0.3 mg/dL (0.0-0.4); BILIRUBIN,TOTAL 0.7 mg/dL (0.2-1.3); BLOOD UREA NITROGEN 19 mg/dL (7-20); CALCIUM 9.7 mg/dL (8.4-10.2); CARBON DIOXIDE 28 mmol/L (22-30); CHLORIDE 102 mmol/L (98-107); GLUCOSE 223 mg/dL (75-110); SODIUM 140.3 mmol/L (137-145); TOTAL PROTEIN 7.4 g/dL (6.3-8.2)
--- NOTE | 2019-02-06 12:23 | PDOC CONSULTATION ---
Consultation Consult Date: 02/06/19 Provider Consulted: VINI HOLDEN Consult reason:: scrotal abscess History of Present Illness Admission Date/PCP: CARLIE LUA MD History of Present Illness: THAI BARROSO is a 58 year old male presents with 1 day of left scrotal swelling and pain noted a sl swellling 2 days ago, but yesterday it became larger with more pain no dysuria, no fever, chills, sweats, no gi sxs Past Medical History Cardiac Medical History: Reports: Hypertension Pulmonary Medical History: Reports: Chronic Obstructive Pulmonary Disease (COPD) - x3 Denies: Tuberculosis Endocrine Medical History: Reports: Diabetes Mellitus Type 2 Past Surgical History Past Surgical History: Reports: Tonsillectomy - 4 YRS OLD Denies: Pacemaker Social History Smoking Status: Current Some Day Smoker Frequency of Alcohol Use: Rare Hx Recreational Drug Use: No Hx Prescription Drug Abuse: No Family History Family History: Reviewed & Not Pertinent, Arthritis, CAD, COPD, CVA Parental Family History Reviewed: No Children Family History Reviewed: NA Sibling(s) Family History Reviewed.: NA Medication/Allergy Home Medications: Baclofen [Baclofen 20 mg Tablet] 20 mg PO TID 04/08/18 Cholecalciferol (Vitamin D3) [Vitamin D3 1000 Unit Tablet] 1,000 units PO DAILY 04/08/18 Dulaglutide [Trulicity] 1.5 mg INJ QUIGLEY@1000 04/08/18 Glipizide [Glucotrol 10 mg Tablet] 10 mg PO BID 04/08/18 Hydrochlorothiazide [Hydrodiuril 12.5 mg Tablet] 12.5 mg PO DAILY 04/08/18 Insulin Glargine,Hum.rec.anlog [Lantus (Pyxis) Insulin 100 Unit/1 ml 10 ml] 60 units SQ QHS 04/08/18 Lisinopril [Prinivil] 20 mg PO BID 04/08/18 Magnesium Oxide [Mag-Ox 400 mg Tablet] 400 mg PO DAILY 04/08/18 Pravastatin Sodium [Pravachol] 20 mg PO QHS 04/08/18 Tiotropium [place] [Spiriva Handihaler 18 mcg/dose (30 Dose)] 1 cap IH DAILY 04/08/18 Verapamil HCl [Calan 120 mg Tablet] 120 mg PO DAILY 04/08/18 Aspirin [Ecotrin 325 mg EC Tablet] 325 mg PO DAILY #30 tabec 04/12/18 Baclofen [Baclofen 20 mg Tablet] 20 mg PO Q8 tablet 04/12/18 Glucagon,Human Recombinant [Glucagen Inj 1 mg Vial] 1 mg IM PRN PRN vial Ipratropium/Albuterol Sulfate [Duoneb 3 ml Ampul] 3 ml NEB Q8HP PRN vial.neb 04/12/18 Tamsulosin HCl [Flomax 0.4 mg Cap.sr] 0.4 mg PO DAILY #30 cap.sr.24h 04/12/18 Tiotropium [place] [Spiriva Handihaler 5 Cap/Kit (18 Mcg/Cap)] 1 cap IH DAILY kit 04/12/18 Ciprofloxacin HCl [Cipro 500 mg Tablet] 500 mg PO BID #14 tablet 02/06/19 Allergies/Adverse Reactions: furosemide [From Lasix] Allergy (Verified 04/09/18 08:58) Physical Exam Vital Signs: Temp Pulse Resp BP Pulse Ox 98.0 F 98 16 178/98 H 95 02/06/19 07:24 02/06/19 07:24 02/06/19 07:24 02/06/19 07:24 02/06/19 07:24 Intake & Output 02/05/19 02/06/19 02/07/19 06:59 06:59 06:59 Weight 130.6 kg General appearance: PRESENT: no acute distress, morbidly obese Eye exam: PRESENT: EOMI Ear exam: PRESENT: normal external ear exam Mouth exam: PRESENT: moist Teeth exam: PRESENT: poor dentation Neck exam: PRESENT: full ROM Respiratory exam: PRESENT: clear to auscultation juan Cardiovascular exam: PRESENT: RRR Pulses: PRESENT: normal radial pulses, normal femoral pulses GI/Abdominal exam: PRESENT: soft Rectal exam: PRESENT: deferred Gentrourinary exam: PRESENT: other - 4x6 area of abscess left scrotum with min cellulitis fluctulant. Extremities exam: PRESENT: full ROM Musculoskeletal exam: PRESENT: full ROM Neurological exam: PRESENT: alert Psychiatric exam: PRESENT: appropriate affect Skin exam: PRESENT: dry Results Laboratory Results: 02/06/19 11:22 02/06/19 11:22 02/06/19 02/06/19 11:22 11:22 WBC 10.0 RBC 5.46 Hgb 14.9 Hct 44.8 MCV 82 MCH 27.2 MCHC 33.1 RDW 13.8 Plt Count 189 Seg Neutrophils % 74.1 Lymphocytes % 14.2 Monocytes % 7.8 Eosinophils % 3.3 Basophils % 0.6 Absolute Neutrophils 7.4 Absolute Lymphocytes 1.4 Absolute Monocytes 0.8 Absolute Eosinophils 0.3 Absolute Basophils 0.1 Sodium 140.3 Potassium 5.0 Chloride 102 Carbon Dioxide 28 Anion Gap 10 BUN 19 Creatinine 1.41 H Est GFR ( Amer) > 60 Est GFR (Non-Af Amer) 51 L Glucose 223 H Calcium 9.7 Total Bilirubin 0.7 AST 18 ALT 27 Alkaline Phosphatase 75 Total Protein 7.4 Albumin 4.2 Impressions: Scrotum Ultrasound 02/06/19 10:03 IMPRESSION: 1. Complex fluid collection in the left inguinal region measured 2.4 x 2.0 x 1.5 cm. Suspect developing abscess. 2. Small right hydrocele with debris. Assessment & Plan - Plan Summary Plan Summary: impresion scrotal abscess recommend Incision and drainage explained risks to pt including bleeding, infection, recurrence, injury to adjacent organs including spermatic chord, testicle injury. he understands and agrees to proceed.
--- NOTE | 2019-02-06 12:24 | Operative Report ---
Nonrecallable Operative Report DATE OF SURGERY: 02/06/19 PREOPERATIVE DIAGNOSIS: scrotal abscess POSTOPERATIVE DIAGNOSIS: scrotal abscess OPERATION: incision and drainage SURGEON: VINI HOLDEN ANESTHESIA: Local TISSUE REMOVED OR ALTERED: none COMPLICATIONS: none ESTIMATED BLOOD LOSS: 10cc INTRAOPERATIVE FINDINGS: see dictation PROCEDURE: see dictation
[2019-02-06 12:39] VITALS: BP 138/88
--- NOTE | 2019-02-06 13:04 | OPERATIVE REPORT E ---
Operative Report NAME: THAI BARROSO : 1960 AGE: 58Y DATE OF SURGERY: 02/06/2019 ROOM: PREOPERATIVE DIAGNOSIS: Left scrotal abscess. POSTOPERATIVE DIAGNOSIS: Left scrotal abscess. OPERATIVE PROCEDURE: Incision and drainage of left scrotal abscess. SURGEON: VINI HOLDEN M.D. INDICATIONS FOR PROCEDURE: This 58-year-old male presented to the emergency room this afternoon with increased pain in the left scrotum and increased swelling. He noted a small lump there approximately 2 days ago; however, overnight it became more reddened and tender and he presented to the emergency room for this. Diagnosis of a scrotal abscess was made. Therefore, after appropriate informed consent, we elected to perform this procedure. PROCEDURE: The patient was lying on the emergency room gurney. The left scrotum was prepped and draped in the usual sterile fashion. After appropriate time out and site verification, the area directly over the abscess was anesthetized with 1% lidocaine plain. A longitudinal incision was made with an 11 blade directly over the abscess, which was approximately 4 x 6 cm in diameter. The incision was approximately 3 cm long, and as we incised the skin a large amount of pus exuded from the wound. Approximately 20 mL of pus exuded, which was somewhat foul smelling. The wound was extended for approximately 3 cm and then digital dissection was utilized to break up the loculations in the abscess cavity. It was then irrigated with normal saline and then packed with Iodoform strip gauze. A sterile dressing was applied which completed the procedure. Estimated blood loss was 10 mL. The patient tolerated the procedure well. He will have a follow-up appointment in 3 to 4 days in [facility]. He was also instructed to remove the gauze at home. DICTATING PHYSICIAN: VINI HOLDEN M.D. [id number] PHY#: [id number] ID: [id number] JOB#: [id number] ACCT: [id number] cc:VINI HOLDEN M.D. >
--- NOTE | 2019-02-09 09:10 | ER Document Report ---
Entered by TEGAN CRHISTENSEN SCRIBE 02/06/19 1003 Acting as scribe for:ROBER SARMIENTO MD ED Skin Rash/Insect Bite/Abscs - General Chief Complaint: Abscess Stated Complaint: ABSCESS Time Seen by Provider: 02/06/19 09:51 Primary Care Provider: [facility] [Provider Group] - Follow up in 3-5 days INESSA GONZALEZ PA-C [PHYSICIAN VIDEO GAME ANIMATOR] - Follow up as needed TRAVEL OUTSIDE OF THE [place] IN LAST 30 DAYS: No - Related Data Allergies/Adverse Reactions: furosemide [From Lasix] Allergy (Verified 04/09/18 08:58) Past Medical History - Social History Smoking Status: Current Some Day Smoker Chew tobacco use (# tins/day): No Frequency of alcohol use: None Drug Abuse: None Family History: Reviewed & Not Pertinent, Arthritis, CAD, COPD, CVA Patient has suicidal ideation: No Patient has homicidal ideation: No - Past Medical History Cardiac Medical History: Reports: Hx Hypertension Pulmonary Medical History: Reports: Hx COPD - x3 Denies: Hx Tuberculosis Neurological Medical History: Reports: Hx Cerebrovascular Accident Endocrine Medical History: Reports: Hx Diabetes Mellitus Type 2 Renal/ Medical History: Reports: Hx Kidney Stones, Hx Renal Insufficiency - Stage III. Denies: Hx Peritoneal Dialysis Past Surgical History: Reports: Hx Tonsillectomy - 4 YRS OLD. Denies: Hx Pacemaker - Immunizations Immunizations up to date: Yes Hx Diphtheria, Pertussis, Tetanus Vaccination: No Physical Exam - Vital signs Vitals: Temp Pulse Resp BP Pulse Ox 98.0 F 98 16 178/98 H 95 02/06/19 07:24 02/06/19 07:24 02/06/19 07:24 02/06/19 07:24 02/06/19 07:24 - Notes Notes: PHYSICAL EXAMINATION: GENERAL: Well-appearing, well-nourished and in no acute distress. HEAD: Atraumatic, normocephalic. Salazar. EYES: Pupils equal round and reactive to light, extraocular movements intact, sclera anicteric, conjunctiva are normal. ENT: nares patent, oropharynx clear without exudates. Moist mucous membranes. NECK: Normal range of motion, supple without lymphadenopathy LUNGS: Breath sounds are coarse with some rhonchi bilaterally consistent with his long smoking history and history of COPD.. HEART: Regular rate and rhythm without murmurs ABDOMEN: Soft, obese, nontender, normoactive bowel sounds. No guarding, no rebound. No masses appreciated. GROIN: The left lateral scrotal region has about a 2 x 4 cm tender mass extending up to the abdominal wall. This does feel like an abscess with some induration of the soft tissues. EXTREMITIES: Normal range of motion, no pitting or edema. No cyanosis. NEUROLOGICAL: Patient has some residual left-sided weakness from a prior stroke. PSYCH: Normal mood, normal affect. SKIN: Warm, Dry, normal turgor, no rashes or lesions noted. Course - Re-evaluation Re-evalutation: 02/06/19 12:15 Left scrotal abscess was drained by Dr. Harden. He reports getting about 20 mL's of pus from the abscess cavity. He did pack the abscess. - Vital Signs Vital signs: Temp Pulse Resp BP Pulse Ox 98.8 F 96 16 138/88 H 97 02/06/19 12:38 02/06/19 12:38 02/06/19 12:38 02/06/19 12:38 02/06/19 12:38 - Laboratory Result Diagrams: 02/06/19 11:22 02/06/19 11:22 Laboratory results interpreted by me: 02/06/19 11:22 Creatinine 1.41 H Est GFR (Non-Af Amer) 51 L Glucose 223 H Discharge - Discharge Clinical Impression: Scrotal wall abscess Condition: Stable Disposition: HOME, SELF-CARE Additional Instructions: Take the antibiotics as prescribed. Soaking in a warm tub of water will help with the discomfort. Remove the packing tomorrow and irrigate the wound with fresh water frequently. Call [facility] today to schedule an appointment for next week. RETURN TO THE EMERGENCY ROOM IF ANY NEW OR WORSENING SYMPTOMS. Prescriptions: Ciprofloxacin HCl [Cipro 500 mg Tablet] 500 mg PO BID #14 tablet Oxycodone HCl/Acetaminophen [Percocet 5-325 mg Tablet] 1 tab PO ASDIR PRN #10 tablet PRN Reason: Referrals: INESSA GONZALEZ PA-C [PHYSICIAN VIDEO GAME ANIMATOR] - Follow up as needed [facility] [Provider Group] - Follow up in 3-5 days [place] Attestation: 02/06/19 10:34 I personally performed the services described in the documentation, reviewed and edited the documentation which was dictated to the scribe in my presence, and it accurately records my words and actions. I personally performed the services described in the documentation, reviewed and edited the documentation which was dictated to the scribe in my presence, and it accurately records my words and actions.
== END 2019-02-06 12:42 | disposition home or self-care (01) ==
LOC: ER 07:19
DX: N49.2 Inflammatory disorders of scrotum (principal); E11.9 Type 2 diabetes mellitus without complications; I10 Essential (primary) hypertension; J44.9 Chronic obstructive pulmonary disease, unspecified; F17.200 Nicotine dependence, unspecified, uncomplicated; Z79.899 Other long term (current) drug therapy; Z79.82 Long term (current) use of aspirin; Z79.84 Long term (current) use of oral hypoglycemic drugs; Z79.4 Long term (current) use of insulin
CPT/HCPCS: 36415; 76870; 80053; 85025; 87070; 87075; 87077; 87205; 99284

== ENCOUNTER → 2019-03-11 | Outpatient (CLI) | payer MEDICAID ==
[2019-03-11 08:14] LABS: ALANINE AMINOTRANSFERASE 30 U/L (21-72); ALBUMIN 4.6 g/dL (3.5-5.0); ALKALINE PHOSPHATASE 72 U/L (38-126); ANION GAP 11 (5-19); ASPARTATE AMINO TRANSFERASE 30 U/L (17-59); BILIRUBIN,DIRECT 0.3 mg/dL (0.0-0.4); BILIRUBIN,TOTAL 0.7 mg/dL (0.2-1.3); BLOOD UREA NITROGEN 19 mg/dL (7-20); CALCIUM 9.8 mg/dL (8.4-10.2); CARBON DIOXIDE 29 mmol/L (22-30); CHLORIDE 100 mmol/L (98-107); CHOLESTEROL 125.11 mg/dL (0-200); GLUCOSE 177 mg/dL (75-110); POTASSIUM 4.8 mmol/L (3.6-5.0); SODIUM 139.7 mmol/L (137-145); TOTAL PROTEIN 7.7 g/dL (6.3-8.2); TRIGLYCERIDES 115 mg/dL (<150)
[2019-03-11 08:25] LABS: DIRECT LDL 68 mg/dL (<100)
== END ==
LOC: LAB 07:35
PROVIDERS: ATTEND Physician Assistant
DX: I10 Essential (primary) hypertension (principal); E78.5 Hyperlipidemia, unspecified; Z79.899 Other long term (current) drug therapy
CPT/HCPCS: 36415; 80048; 80061; 80076

== ENCOUNTER → 2019-06-10 | Outpatient (CLI) | payer MEDICAID ==
[2019-06-10 09:31] LABS: ALBUMIN 4.5 g/dL (3.5-5.0); ALKALINE PHOSPHATASE 70 U/L (38-126); ANION GAP 11 (5-19); ASPARTATE AMINO TRANSFERASE 26 U/L (17-59); BILIRUBIN,DIRECT 0.1 mg/dL (0.0-0.4); BILIRUBIN,TOTAL 0.5 mg/dL (0.2-1.3); BLOOD UREA NITROGEN 29 mg/dL (7-20); CARBON DIOXIDE 26 mmol/L (22-30); CHLORIDE 101 mmol/L (98-107); CHOLESTEROL 154.69 mg/dL (0-200); GLUCOSE 175 mg/dL (75-110); TOTAL PROTEIN 7.7 g/dL (6.3-8.2); TRIGLYCERIDES 159 mg/dL (<150)
[2019-06-10 09:43] LABS: DIRECT LDL 99 mg/dL (<100)
[2019-06-10 09:48] LABS: VLDL CHOLESTEROL 31.8 mg/dL (10-31)
== END ==
LOC: LAB 08:43
PROVIDERS: ATTEND Internal Medicine Cardiovascular Disease
DX: E78.5 Hyperlipidemia, unspecified (principal); I10 Essential (primary) hypertension; Z79.899 Other long term (current) drug therapy
CPT/HCPCS: 36415; 80048; 80061; 80076

== ENCOUNTER 2019-07-02 22:45 | Emergency (ER) | payer MEDICAID ==
--- NOTE | 2019-07-02 23:03 | ER Document Report ---
ED Medical Screen (RME) - General Chief Complaint: Constipation Stated Complaint: CONSTIPATED Time Seen by Provider: 07/02/19 22:58 Primary Care Provider: CARLIE LUA MD [Primary Care Provider] - Follow up as needed TRAVEL OUTSIDE OF THE [place] IN LAST 30 DAYS: No - HPI Notes: 07/02/19 23:01 59-year-old male to the emergency department via EMS with complaints of constipation for the past 6 days. States that he took some magnesium citrate tonight but only had a small bowel movement that was unsatisfactory. States that he has a lot of left upper and left lower abdominal pain. Denies any diarrhea. Denies any fevers or chills. Admits that he has had a little decrease in his urine output as well today. States he usually goes about every 2 hours and he has not urinated since about 5 PM. He denies any other complaints. Performed a medical screening exam on the patient. On brief exam, patient has tenderness to palpation to the left upper quadrant and left lower quadrant with no rebound or guarding. Have placed initial orders to aid in patient's treatment plan and will have patient further evaluated and managed by calling on main side of the ER - Related Data Allergies/Adverse Reactions: furosemide [From Lasix] Allergy (Verified 04/09/18 08:58) Past Medical History - Past Medical History Cardiac Medical History: Reports: Hx Hypertension Pulmonary Medical History: Reports: Hx COPD - x3 Denies: Hx Tuberculosis Neurological Medical History: Reports: Hx Cerebrovascular Accident Endocrine Medical History: Reports: Hx Diabetes Mellitus Type 2 Renal/ Medical History: Reports: Hx Kidney Stones, Hx Renal Insufficiency - Stage III. Denies: Hx Peritoneal Dialysis Past Surgical History: Reports: Hx Tonsillectomy - 4 YRS OLD. Denies: Hx Pacemaker - Immunizations Immunizations up to date: Yes Hx Diphtheria, Pertussis, Tetanus Vaccination: No Physical Exam - Vital signs Vitals: Temp Pulse Resp BP Pulse Ox 98.0 F 102 H 18 148/99 H 95 07/02/19 22:59 07/02/19 22:59 07/02/19 22:59 07/02/19 22:59 07/02/19 22:59 Course - Vital Signs Vital signs: Temp Pulse Resp BP Pulse Ox 98.0 F 102 H 18 148/99 H 95 07/02/19 22:59 07/02/19 22:59 07/02/19 22:59 07/02/19 22:59 07/02/19 22:59 Doctor's Discharge - Discharge Referrals: CARLIE LUA MD [Primary Care Provider] - Follow up as needed
[2019-07-03 03:34] LABS: ABSOLUTE BASOPHILS # (AUTO) 0.1 10^3/uL (0.0-0.2); ABSOLUTE LYMPHOCYTES (AUTO) 1.2 10^3/uL (0.5-4.7); ABSOLUTE MONOCYTES (AUTO) 1.1 10^3/uL (0.1-1.4); ABSOLUTE NEUT (AUTO) 7.5 10^3/uL (1.7-8.2); BASOPHILS % (AUTO) 0.7 % (0-2); EOSINOPHILS % (AUTO) 0.3 % (0-6); HEMOGLOBIN 15.6 g/dL (13.5-17.0); LYMPHOCYTES % (AUTO) 11.7 % (13-45); MEAN CORPUSCULAR HEMOGLOBIN 27.8 pg (27.0-33.4); MEAN CORPUSCULAR HGB CONC 33.9 g/dL (32.0-36.0); MEAN CORPUSCULAR VOLUME 82 fl (80-97); MONOCYTES % (AUTO) 11.5 % (3-13); PLATELET COUNT 169 10^3/uL (150-450); RED BLOOD COUNT 5.61 10^6/uL (4.35-5.55); RED CELL DISTRIBUTION WIDTH 14.1 % (11.5-14.0); SEGMENTED NEUTROPHILS % (AUTO) 75.8 % (42-78); TOTAL CELLS COUNTED % (AUTO) 100 %; WHITE BLOOD COUNT 9.9 10^3/uL (4.0-10.5)
[2019-07-03 03:49] LABS: ALBUMIN 4.3 g/dL (3.5-5.0); ALKALINE PHOSPHATASE 86 U/L (38-126); ANION GAP 9 (5-19); ASPARTATE AMINO TRANSFERASE 25 U/L (17-59); BILIRUBIN,DIRECT 0.1 mg/dL (0.0-0.4); BILIRUBIN,TOTAL 0.8 mg/dL (0.2-1.3); BLOOD UREA NITROGEN 23 mg/dL (7-20); CALCIUM 9.7 mg/dL (8.4-10.2); CARBON DIOXIDE 31 mmol/L (22-30); CHLORIDE 95 mmol/L (98-107); GLUCOSE 154 mg/dL (75-110); POTASSIUM 5.4 mmol/L (3.6-5.0); TOTAL PROTEIN 7.5 g/dL (6.3-8.2)
--- NOTE | 2019-07-03 04:05 | RADIOLOGY REPORT (SQ) ---
CLINICAL HISTORY: abd pain, constipation COMPARISON: None. TECHNIQUE: XR ABDOMEN SUPINE AND ERECT WITH CHEST (ABD ACUTE SERIES) 07/02/2019 11:00 PM DIRECTOR DATA MANAGEMENT FINDINGS: Bowel gas pattern is nonspecific. There are no abnormal radiopaque foreign bodies or abnormal calcifications. Osseous structures are grossly unremarkable. The heart is normal in size. Lungs are clear. IMPRESSION: No bowel obstruction.
--- NOTE | 2019-07-03 06:15 | ER Document Report ---
ED General - General Chief Complaint: Constipation Stated Complaint: CONSTIPATED Time Seen by Provider: 07/02/19 22:58 Primary Care Provider: CARLIE LUA MD [Primary Care Provider] - Follow up as needed TRAVEL OUTSIDE OF THE [place] IN LAST 30 DAYS: No - HPI Notes: This is a 59-year-old gentleman who presents with a complaint of constipation for the past 6 days. Patient states that he took some mag citrate [id number] but it did not help. He describes cramping abdominal discomfort. He takes baclofen daily. He denies any opiate use. He denies any fever or chills. He denies any nausea or vomiting. Describes his symptoms as moderate. - Related Data Allergies/Adverse Reactions: furosemide [From Lasix] Allergy (Verified 04/09/18 08:58) Home Medications: Trulicity, ASA Past Medical History - Social History Smoking Status: Current Every Day Smoker Frequency of alcohol use: None Family History: Reviewed & Not Pertinent, Arthritis, CAD, COPD, CVA Patient has suicidal ideation: No Patient has homicidal ideation: No - Past Medical History Cardiac Medical History: Reports: Hx Hypertension Pulmonary Medical History: Reports: Hx COPD - x3 Denies: Hx Tuberculosis Neurological Medical History: Reports: Hx Cerebrovascular Accident Endocrine Medical History: Reports: Hx Diabetes Mellitus Type 2 Renal/ Medical History: Reports: Hx Kidney Stones, Hx Renal Insufficiency - Stage III. Denies: Hx Peritoneal Dialysis Past Surgical History: Reports: Hx Tonsillectomy - 4 YRS OLD. Denies: Hx Pacemaker - Immunizations Immunizations up to date: Yes Hx Diphtheria, Pertussis, Tetanus Vaccination: No Review of Systems - Review of Systems Cardiovascular: denies: Chest pain Gastrointestinal: Constipation. denies: Abdominal pain, Diarrhea, Nausea, Vomiting -: Yes All other systems reviewed and negative Physical Exam - Vital signs Vitals: Temp Pulse Resp BP Pulse Ox 98.0 F 102 H 18 148/99 H 95 07/02/19 22:59 07/02/19 22:59 07/02/19 22:59 07/02/19 22:59 07/02/19 22:59 - General General appearance: Appears well, Alert - Respiratory Respiratory status: No respiratory distress Chest status: Nontender Breath sounds: Normal Chest palpation: Normal - Cardiovascular Rhythm: Regular Heart sounds: Normal auscultation Murmur: No - Abdominal Inspection: Normal - No tenderness appreciated. Distension: No distension Bowel sounds: Normal Tenderness: Nontender Organomegaly: No organomegaly - Rectal Tenderness: No Stool: Heme negative Hemorrhoids: None - No fecal impaction appreciated. - Neurological Neuro grossly intact: Yes Cognition: Normal Orientation: AAOx4 Brenda Coma Scale Eye Opening: Spontaneous Brenda Coma Scale Verbal: Oriented Geneva Coma Scale Motor: Obeys Commands Geneva Coma Scale Total: 15 Speech: Normal Motor strength normal: LUE, RUE, LLE, RLE Sensory: Normal - Psychological Associated symptoms: Normal affect, Normal mood Course - Re-evaluation Re-evalutation: 07/03/19 06:15 Clinical picture is consistent with constipation. X-ray does not show any evidence of bowel obstruction. Will do enema. 07/03/19 08:18 Patient is doing well. He had some response with enema. He states he is ready to go home. We will send him home on MiraLA[facility]. He is stable for discharge. - Vital Signs Vital signs: Temp Pulse Resp BP Pulse Ox 98.0 F 102 H 18 148/99 H 95 07/02/19 22:59 07/02/19 22:59 07/02/19 22:59 07/02/19 22:59 07/02/19 22:59 - Laboratory Result Diagrams: 07/03/19 03:19 07/03/19 03:19 Laboratory results interpreted by me: 07/03/19 07/03/19 07/03/19 03:19 03:19 06:00 RBC 5.61 H RDW 14.1 H Lymph % (Auto) 11.7 L Sodium 135.4 L Potassium 5.4 H Chloride 95 L Carbon Dioxide 31 H BUN 23 H Creatinine 1.84 H Est GFR ( Amer) 45 L Est GFR (MDRD) Non-Af 38 L Glucose 154 H Urine Glucose (UA) >=500 H Urine Ketones TRACE H Urine Blood SMALL H Discharge - Discharge Clinical Impression: Constipation Qualifiers: Constipation type: unspecified constipation type Qualified Code(s): K59.00 - Constipation, unspecified Condition: Good Disposition: HOME, SELF-CARE Instructions: Constipation ([facility]) Prescriptions: Polyethylene Glycol 3350 [Miralax] 1 cap PO DAILY #527 powder Referrals: CARLIE LUA MD [Primary Care Provider] - Follow up as needed
[2019-07-03 06:22] LABS: APPEARANCE,URINE CLEAR; BILIRUBIN,URINE NEGATIVE (NEGATIVE); COLOR,URINE YELLOW; GLUCOSE, URINE >=500 mg/dL (NEGATIVE); KETONES,URINE TRACE mg/dL (NEGATIVE); LEUKOCYTE ESTERASE,URINE NEGATIVE (NEGATIVE); NITRITE,URINE NEGATIVE (NEGATIVE); PROTEIN,URINE NEGATIVE (NEGATIVE); URINE SPECIFIC GRAVITY 1.007; UROBILINOGEN,URINE NEGATIVE mg/dL (<2.0)
[2019-07-03 08:41] VITALS: BP 139/86
== END 2019-07-03 08:41 | disposition home or self-care (01) ==
LOC: ER 22:45
DX: K59.00 Constipation, unspecified (principal); R10.9 Unspecified abdominal pain; F17.200 Nicotine dependence, unspecified, uncomplicated; J44.9 Chronic obstructive pulmonary disease, unspecified; I10 Essential (primary) hypertension; E11.9 Type 2 diabetes mellitus without complications; Z79.84 Long term (current) use of oral hypoglycemic drugs; Z79.899 Other long term (current) drug therapy; Z79.82 Long term (current) use of aspirin; Z88.8 Allergy status to other drugs, medicaments and biological substances
CPT/HCPCS: 36415; 74022; 80053; 81001; 83690; 85025; 99284

== ENCOUNTER 2019-08-03 12:59 | Emergency (ER) | payer MEDICAID ==
[2019-08-03] MEDS ORDERED: ACETAMINOPHEN 325 MG TABLET PO ONE (14:08)
[2019-08-03] MEDS ORDERED: ONDANSETRON 4 MG TAB.RAPDIS PO ONE (14:08)
--- NOTE | 2019-08-03 14:10 | ER Document Report ---
ED Medical Screen (RME) - General Chief Complaint: Possible Kidney Stone Stated Complaint: BACK/ABDOMINAL PAIN Time Seen by Provider: 08/03/19 14:05 Primary Care Provider: CARLIE LUA MD [Primary Care Provider] - Follow up as needed Mode of Arrival: Ambulatory Information source: Patient Notes: 59-year-old male presents to ED for complaint of left flank pain with nausea and vomiting and history of kidney stones 9 AM this morning. He states he has had one emesis and has a history of kidney stones he. He states he does feel like he is passing another kidney stone. He states it goes from the back all the way through to the front. Patient is alert oriented respirations regular nonlabored. He states he does have renal insufficiency stage II. He does have elevated blood pressure in the emergency room but he has a history of elevated blood pressure. He is also in a lot of pain. I have greeted and performed a rapid initial assessment of this patient. A comprehensive ED assessment and evaluation of the patient, analysis of test results and completion of medical decision making process will be conducted by an additional ED providers. TRAVEL OUTSIDE OF THE [place] IN LAST 30 DAYS: No - Related Data Allergies/Adverse Reactions: furosemide [From Lasix] Allergy (Verified 04/09/18 08:58) Past Medical History - Social History Cigarette use (# per day): No - former smoker now vape Frequency of alcohol use: None Drug Abuse: None Lives with: Parents Family history: None - Past Medical History Cardiac Medical History: Reports: Hx Hypertension Pulmonary Medical History: Reports: Hx COPD - x3 Denies: Hx Tuberculosis Neurological Medical History: Reports: Hx Cerebrovascular Accident Endocrine Medical History: Reports: Hx Diabetes Mellitus Type 2 Renal/ Medical History: Reports: Hx Kidney Stones, Hx Renal Insufficiency - Stage II. Denies: Hx Peritoneal Dialysis Infectious Medical History: Reports: None Past Surgical History: Reports: Hx Tonsillectomy - 4 YRS OLD. Denies: Hx Pacemaker - Immunizations Immunizations up to date: Yes Hx Diphtheria, Pertussis, Tetanus Vaccination: No Physical Exam - Vital signs Vitals: Temp Pulse Resp BP Pulse Ox 98.3 F 77 16 191/107 H 97 08/03/19 13:25 08/03/19 13:25 08/03/19 13:25 08/03/19 13:25 08/03/19 13:25 Course - Vital Signs Vital signs: Temp Pulse Resp BP Pulse Ox 98.3 F 77 16 191/107 H 97 08/03/19 13:25 08/03/19 13:25 08/03/19 13:25 08/03/19 13:25 08/03/19 13:25 Doctor's Discharge - Discharge Referrals: CARLIE LUA MD [Primary Care Provider] - Follow up as needed
[2019-08-03 14:30] LABS: APPEARANCE,URINE SLIGHTLY-CLOUDY; BILIRUBIN,URINE NEGATIVE (NEGATIVE); COLOR,URINE YELLOW; GLUCOSE, URINE 150 mg/dL (NEGATIVE); KETONES,URINE TRACE mg/dL (NEGATIVE); PROTEIN,URINE 30 mg/dL (NEGATIVE); URINE SPECIFIC GRAVITY 1.017; UROBILINOGEN,URINE NEGATIVE mg/dL (<2.0)
--- NOTE | 2019-08-03 15:34 | RADIOLOGY REPORT (SQ) ---
EXAM DESCRIPTION: CT ABD/PELVIS NO ORAL OR IV COMPLETED DATE/TIME: 08/03/2019 3:18 pm REASON FOR STUDY: Left flank pain COMPARISON: 03/09/2014. TECHNIQUE: CT scan of the abdomen and pelvis performed without intravenous or oral contrast. Images reviewed with lung, soft tissue, and bone windows. Reconstructed coronal and sagittal MPR images revi ewed. All images stored on PACS. All CT scanners at this facility use dose modulation, iterative reconstruction, and/or weight based d osing when appropriate to reduce radiation dose to as low as reasonably achievable (ALARA). [facility]: Dose Right [facility]: CareDose [facility]: Dose Right [facility]: Teradose 4D [facility]: Smart [employer] RADIATION DOSE: CT Rad equipment meets quality standard of care and radiation dose reduction techniq ues were employed. CTDIvol: 18.6 mGy. DLP: 1029 mGy-cm.mGy. LIMITATIONS: None. FINDINGS: LOWER CHEST: No significant findings. No nodules or infiltrates. NON-CONTRASTED LIVER, SPLEEN, ADRENALS: Evaluation limited by lack of IV contrast. No identified sign ificant masses. PANCREAS: No masses. No peripancreatic inflammatory changes. GALLBLADDER: Gallstones. No inflammatory changes to suggest cholecystitis. RIGHT KIDNEY AND URETER: No suspicious masses. Assessment limited by lack of IV contrast. 6 mm ston e lower pole. 8.5 mm stone distal left ureter just above bladder measuring 796 HU. Moderate hydron ephrosis and hydroureter. LEFT KIDNEY AND URETER: No suspicious masses. Assessment limited by lack of IV contrast. No signifi cant calcifications. No hydronephrosis or hydroureter. AORTA AND RETROPERITONEUM: No aneurysm. No retroperitoneal masses or adenopathy. BOWEL AND PERITONEAL CAVITY: Diverticulosis descending and sigmoid colon. No obvious masses or infla mmatory changes. No free fluid. APPENDIX: Not visualized. PELVIS, BLADDER, AND ABDOMINAL WALL:No abnormal masses. No free fluid. Bladder normal. BONES: Nothing acute. OTHER: No other significant finding. IMPRESSION: 8 mm stone distal left ureter. Moderate hydronephrosis. COMMENT: Quality ID # [id number]: Final reports with documentation of one or more dose reduction techniques (e.g., Automated exposure control, adjustment of the mA and/or kV according to patient size, use of iterative reconstruction technique) TECHNICAL DOCUMENTATION: JOB ID: [id number]- All Rights Reserved Reading location - IP/workstation name: [email or web address]
[2019-08-03] MEDS ORDERED: NORMAL SALINE 1000 ML 1,000 ML IV ONE (17:38)
[2019-08-03 18:21] LABS: ABSOLUTE BASOPHILS # (AUTO) 0.1 10^3/uL (0.0-0.2); ABSOLUTE EOSINOPHILS # (AUTO) 0.1 10^3/uL (0.0-0.6); ABSOLUTE LYMPHOCYTES (AUTO) 1.3 10^3/uL (0.5-4.7); ABSOLUTE MONOCYTES (AUTO) 0.8 10^3/uL (0.1-1.4); ABSOLUTE NEUT (AUTO) 11.1 10^3/uL (1.7-8.2); BASOPHILS % (AUTO) 0.7 % (0-2); EOSINOPHILS % (AUTO) 0.7 % (0-6); HEMATOCRIT 46.4 % (37.9-51.0); HEMOGLOBIN 15.4 g/dL (13.5-17.0); LYMPHOCYTES % (AUTO) 9.6 % (13-45); MEAN CORPUSCULAR HEMOGLOBIN 27.3 pg (27.0-33.4); MEAN CORPUSCULAR HGB CONC 33.2 g/dL (32.0-36.0); MEAN CORPUSCULAR VOLUME 82 fl (80-97); PLATELET COUNT 210 10^3/uL (150-450); RED BLOOD COUNT 5.65 10^6/uL (4.35-5.55); TOTAL CELLS COUNTED % (AUTO) 100 %; WHITE BLOOD COUNT 13.4 10^3/uL (4.0-10.5)
[2019-08-03 18:27] VITALS: BP 166/89
[2019-08-03 18:39] LABS: ALBUMIN 4.6 g/dL (3.5-5.0); ALKALINE PHOSPHATASE 83 U/L (38-126); ANION GAP 12 (5-19); ASPARTATE AMINO TRANSFERASE 26 U/L (17-59); BILIRUBIN,DIRECT 0.1 mg/dL (0.0-0.4); BILIRUBIN,TOTAL 0.6 mg/dL (0.2-1.3); BLOOD UREA NITROGEN 15 mg/dL (7-20); CALCIUM 10.1 mg/dL (8.4-10.2); CARBON DIOXIDE 31 mmol/L (22-30); CHLORIDE 95 mmol/L (98-107); GLUCOSE 159 mg/dL (75-110); POTASSIUM 5.1 mmol/L (3.6-5.0); TOTAL PROTEIN 7.9 g/dL (6.3-8.2)
--- NOTE | 2019-08-03 19:49 | ER Document Report ---
ED GI/ - General Chief Complaint: Possible Kidney Stone Stated Complaint: BACK/ABDOMINAL PAIN Time Seen by Provider: 08/03/19 14:05 Primary Care Provider: STAR PAULSON MD [NO LOCAL MD] - Follow up as needed CARLIE LUA MD [Primary Care Provider] - Follow up as needed Mode of Arrival: Ambulatory Information source: Patient Notes: Next 59-year-old male patient presenting to the emergency department with chief complaint of left flank pain that started at 9 AM. Patient denies any fever but reports one episode of vomiting. Patient reports history of kidney stones. States he has passed a stone was large was 14 mm. Patient reports he drinks apple cider vinegar to help dissolve his stones. TRAVEL OUTSIDE OF THE [place] IN LAST 30 DAYS: No - Related Data Allergies/Adverse Reactions: furosemide [From Lasix] Allergy (Verified 04/09/18 08:58) Past Medical History - General Information source: Patient - Social History Smoking Status: Former Smoker Cigarette use (# per day): No - former smoker now vape Frequency of alcohol use: None Drug Abuse: None Lives with: Parents Family History: Reviewed & Not Pertinent, Arthritis, CAD, COPD, CVA Patient has suicidal ideation: No Patient has homicidal ideation: No - Past Medical History Cardiac Medical History: Reports: Hx Hypertension Pulmonary Medical History: Reports: Hx COPD - x3 Denies: Hx Tuberculosis Neurological Medical History: Reports: Hx Cerebrovascular Accident Endocrine Medical History: Reports: Hx Diabetes Mellitus Type 2 Renal/ Medical History: Reports: Hx Kidney Stones, Hx Renal Insufficiency - Stage II. Denies: Hx Peritoneal Dialysis Infectious Medical History: Reports: None Past Surgical History: Reports: Hx Tonsillectomy - 4 YRS OLD. Denies: Hx Pacemaker - Immunizations Immunizations up to date: Yes Hx Diphtheria, Pertussis, Tetanus Vaccination: No Review of Systems - Review of Systems Constitutional: No symptoms reported EENT: No symptoms reported Cardiovascular: No symptoms reported Respiratory: No symptoms reported Gastrointestinal: Nausea, Vomiting Genitourinary: Flank pain Male Genitourinary: No symptoms reported Musculoskeletal: No symptoms reported Skin: No symptoms reported Hematologic/Lymphatic: No symptoms reported Neurological/Psychological: No symptoms reported Physical Exam - Vital signs Vitals: Temp Pulse Resp BP Pulse Ox 98.3 F 77 16 191/107 H 97 08/03/19 13:25 08/03/19 13:25 08/03/19 13:25 08/03/19 13:25 08/03/19 13:25 - Notes Notes: PHYSICAL EXAMINATION: GENERAL: Well-appearing, well-nourished and in no acute distress. HEAD: Atraumatic, normocephalic. EYES: Pupils equal round and reactive to light, extraocular movements intact, sclera anicteric, conjunctiva are normal. ENT: Nares patent, oropharynx clear without exudates. Moist mucous membranes. NECK: Normal range of motion, supple without lymphadenopathy LUNGS: Breath sounds clear to auscultation bilaterally and equal. No wheezes rales or rhonchi. HEART: Regular rate and rhythm without murmurs ABDOMEN: Soft, nontender, nondistended abdomen. No guarding, no rebound. No masses appreciated. Left CVA tenderness. Musculoskeletal: Normal range of motion, no pitting or edema. No cyanosis. NEUROLOGICAL: Cranial nerves grossly intact. Normal speech, normal gait. Normal sensory, motor exams PSYCH: Normal mood, normal affect. SKIN: Warm, Dry, normal turgor, no rashes or lesions noted. Course - Re-evaluation Re-evalutation: 08/03/19 19:48 Patient states he has no pain and is ready to go home. Patient reports that he has his own urologist that he will follow-up with. Patient reports he has passed stones as large as 14 mm in the past. Patient reports not waiting any longer. He states that he does not need any pain or nausea medications as he a lready has them at home. Declines Flomax as he states he does not like taking it. Patient states he had just dealt with many kidney stones and states that his pain has completely resolved. Patient has an elevated white blood count of 13.4. I explained to patient that in the situations we typically arrange for follow-up outpatient. Patient again states he is not staying to wait for that. ED return precautions were discussed, patient assures me he will call his urologist in the morning for follow-up. Laboratory 08/03/19 08/03/19 08/03/19 14:12 18:00 18:00 WBC 13.4 H RBC 5.65 H Hgb 15.4 Hct 46.4 MCV 82 MCH 27.3 MCHC 33.2 RDW 14.0 Plt Count 210 Lymph % (Auto) 9.[address] [place] % (Auto) 6.0 Eos % (Auto) 0.7 Baso % (Auto) 0.7 Absolute Neuts (auto) 11.1 H Absolute Lymphs (auto) 1.3 Absolute Monos (auto) 0.8 Absolute Eos (auto) 0.1 Absolute Basos (auto) 0.1 Seg Neutrophils % 83.0 H Sodium 137.7 Potassium 5.1 H Chloride 95 L Carbon Dioxide 31 H Anion Gap 12 BUN 15 Creatinine 1.14 Est GFR ( Amer) > 60 Est GFR (MDRD) Non-Af > 60 Glucose 159 H Calcium 10.1 Total Bilirubin 0.6 Direct Bilirubin 0.1 Neonat Total Bilirubin Not Reportable Neonat Direct Bilirubin Not Reportable Neonat Indirect Bili Not Reportable AST 26 ALT 25 Alkaline Phosphatase 83 Total Protein 7.9 Albumin 4.6 Urine Color YELLOW Urine Appearance SLIGHTLY-CLOUDY Urine pH 7.0 Ur Specific [place] 1.017 Urine Protein 30 H Urine Glucose (UA) 150 H Urine Ketones TRACE H Urine Blood SMALL H Urine Nitrite (Reflex) NEGATIVE Urine Bilirubin NEGATIVE Urine Urobilinogen NEGATIVE Leukocyte Esterase Rfl NEGATIVE Urine RBC (Auto) 11 Urine WBC (Reflex) 2 Squamous Epi Cells Auto <1 Urine Mucus (Auto) RARE Urine Ascorbic Acid NEGATIVE Abdomen/Pelvis CT 08/03/19 14:07 IMPRESSION: 8 mm stone distal left ureter. Moderate hydronephrosis. - Vital Signs Vital signs: Temp Pulse Resp BP Pulse Ox 98.4 F 86 17 166/89 H 97 08/03/19 18:00 08/03/19 18:00 08/03/19 18:00 08/03/19 18:00 08/03/19 18:00 - Laboratory Result Diagrams: 08/03/19 18:00 08/03/19 18:00 Laboratory results interpreted by me: 08/03/19 08/03/19 08/03/19 14:12 18:00 18:00 WBC 13.4 H RBC 5.65 H Lymph % (Auto) 9.6 L Absolute Neuts (auto) 11.1 H Seg Neutrophils % 83.0 H Potassium 5.1 H Chloride 95 L Carbon Dioxide 31 H Glucose 159 H Urine Protein 30 H Urine Glucose (UA) 150 H Urine Ketones TRACE H Urine Blood SMALL H Discharge - Discharge Clinical Impression: Kidney stone on left side Condition: Stable Disposition: HOME, SELF-CARE Additional Instructions: Kidney Stone You are passing or have passed a kidney stone. These stones are usually due to increased calcium or uric acid concentrations in your urine. Stones within the kidney itself are not painful. The pain occurs as the stone leaves the kidney to pass down the long tube, called the ureter, leading to the bladder. If the stone is small, it will usually pass by itself. Most patients can pass the stone at home. You will usually receive medications for pain, nausea or vomiting, and sometimes a medication to assist in passing the kidney stone. However, if the pain is very severe or if vomiting prevents you from taking oral pain medications, you may need to return for further treatment. Drink three or four quarts of fluids per day. You will be given pain medi cation (if needed) and urine strainers. Strain all your urine to see if the stone passes. If your doctor has asked you to bring the stone in for analysis, return with the stone once it has passed. Return if pain or vomiting become severe, if you develop a high fever, if you are unable to pass your urine, or if other unusual symptoms occur. You have declined any medication prescriptions here in the emergency department. Please take the pain and nausea medications that you have at home. Please call your urologist to schedule a follow-up appointment as the stone is 8 mm and may not pass on its own. Referrals: CARLIE LUA MD [Primary Care Provider] - Follow up as needed STAR PAULSON MD [NO LOCAL MD] - Follow up as needed
== END 2019-08-03 20:22 | disposition home or self-care (01) ==
LOC: ER 12:59
DX: N13.2 Hydronephrosis with renal and ureteral calculous obstruction (principal); R10.9 Unspecified abdominal pain; R11.2 Nausea with vomiting, unspecified; I10 Essential (primary) hypertension; J44.9 Chronic obstructive pulmonary disease, unspecified; E11.9 Type 2 diabetes mellitus without complications; Z72.0 Tobacco use; Z88.8 Allergy status to other drugs, medicaments and biological substances
CPT/HCPCS: 99284; 96360; 36415; 85025; 80053; 81001; 74176; J3490; S0119; J7030

== ENCOUNTER → 2019-09-08 | Outpatient (CLI) | payer MEDICAID ==
[2019-09-08 08:57] LABS: ALBUMIN 4.4 g/dL (3.5-5.0); ALKALINE PHOSPHATASE 72 U/L (38-126); ANION GAP 10 (5-19); ASPARTATE AMINO TRANSFERASE 28 U/L (17-59); BILIRUBIN,DIRECT 0.3 mg/dL (0.0-0.4); BILIRUBIN,TOTAL 0.6 mg/dL (0.2-1.3); BLOOD UREA NITROGEN 18 mg/dL (7-20); CALCIUM 9.9 mg/dL (8.4-10.2); CARBON DIOXIDE 28 mmol/L (22-30); CHLORIDE 102 mmol/L (98-107); CHOLESTEROL 209.29 mg/dL (0-200); GLUCOSE 111 mg/dL (75-110); POTASSIUM 5.2 mmol/L (3.6-5.0); TOTAL PROTEIN 7.8 g/dL (6.3-8.2); TRIGLYCERIDES 109 mg/dL (<150)
[2019-09-08 09:08] LABS: DIRECT LDL 167 mg/dL (<100)
== END ==
LOC: LAB 08:17
PROVIDERS: ATTEND Internal Medicine Cardiovascular Disease
DX: I12.9 Hypertensive chronic kidney disease with stage 1 through stage 4 chronic kidney disease, or unspecified chronic kidney disease (principal); N18.3 Chronic kidney disease, stage 3 (moderate); E78.5 Hyperlipidemia, unspecified; Z79.899 Other long term (current) drug therapy
CPT/HCPCS: 36415; 80048; 80061; 80076; 83735

== ENCOUNTER → 2019-09-29 | Outpatient (CLI) | payer MEDICAID ==
[2019-09-29 08:45] LABS: ANION GAP 8 (5-19); BLOOD UREA NITROGEN 18 mg/dL (7-20); CALCIUM 9.6 mg/dL (8.4-10.2); CARBON DIOXIDE 31 mmol/L (22-30); CHLORIDE 100 mmol/L (98-107); GLUCOSE 163 mg/dL (75-110); POTASSIUM 4.9 mmol/L (3.6-5.0)
== END ==
LOC: LAB 08:01
PROVIDERS: ATTEND Internal Medicine Cardiovascular Disease
DX: I10 Essential (primary) hypertension (principal); E87.5 Hyperkalemia
CPT/HCPCS: 36415; 80048

== ENCOUNTER → 2019-10-20 | Outpatient (CLI) | payer MEDICAID ==
[2019-10-20 09:35] LABS: ANION GAP 10 (5-19); BLOOD UREA NITROGEN 20 mg/dL (7-20); CALCIUM 10.1 mg/dL (8.4-10.2); CARBON DIOXIDE 30 mmol/L (22-30); CHLORIDE 100 mmol/L (98-107); GLUCOSE 188 mg/dL (75-110)
== END ==
LOC: OD 07:48
PROVIDERS: ATTEND Physician Assistant
DX: E87.5 Hyperkalemia (principal); I12.9 Hypertensive chronic kidney disease with stage 1 through stage 4 chronic kidney disease, or unspecified chronic kidney disease; N18.3 Chronic kidney disease, stage 3 (moderate)
CPT/HCPCS: 36415; 80048

== ENCOUNTER → 2019-11-18 | Outpatient (CLI) | payer MEDICAID ==
[2019-11-18 10:03] LABS: ANION GAP 11 (5-19); BLOOD UREA NITROGEN 16 mg/dL (7-20); CALCIUM 9.9 mg/dL (8.4-10.2); CARBON DIOXIDE 27 mmol/L (22-30); CHLORIDE 99 mmol/L (98-107); GLUCOSE 165 mg/dL (75-110); POTASSIUM 4.8 mmol/L (3.6-5.0)
== END ==
LOC: OD 08:14
PROVIDERS: ATTEND Physician Assistant
DX: E87.5 Hyperkalemia (principal); I10 Essential (primary) hypertension
CPT/HCPCS: 36415; 80048

== ENCOUNTER → 2020-02-23 | Outpatient (CLI) | payer MEDICAID ==
[2020-02-23 09:52] LABS: ALBUMIN 4.3 g/dL (3.5-5.0); ALKALINE PHOSPHATASE 75 U/L (38-126); ANION GAP 8 (5-19); ASPARTATE AMINO TRANSFERASE 27 U/L (17-59); BILIRUBIN,TOTAL 0.6 mg/dL (0.2-1.3); BLOOD UREA NITROGEN 25 mg/dL (7-20); CALCIUM 10.2 mg/dL (8.4-10.2); CARBON DIOXIDE 30 mmol/L (22-30); CHLORIDE 99 mmol/L (98-107); CHOLESTEROL 204.71 mg/dL (0-200); GLUCOSE 182 mg/dL (75-110); POTASSIUM 4.8 mmol/L (3.6-5.0); TOTAL PROTEIN 7.3 g/dL (6.3-8.2); TRIGLYCERIDES 203 mg/dL (<150)
[2020-02-23 10:04] LABS: DIRECT LDL 148 mg/dL (<100)
[2020-02-23 10:06] LABS: VLDL CHOLESTEROL 40.6 mg/dL (10-31)
== END ==
LOC: OD 08:11
PROVIDERS: ATTEND Physician Assistant
DX: Z79.899 Other long term (current) drug therapy (principal); E78.5 Hyperlipidemia, unspecified; I10 Essential (primary) hypertension
CPT/HCPCS: 36415; 80048; 80061; 80076

== ENCOUNTER → 2020-05-26 | Outpatient (CLI) | payer MEDICAID ==
[2020-05-26 09:43] LABS: ALBUMIN 4.3 g/dL (3.5-5.0); ALKALINE PHOSPHATASE 75 U/L (38-126); ANION GAP 10 (5-19); ASPARTATE AMINO TRANSFERASE 30 U/L (17-59); BILIRUBIN,DIRECT 0.3 mg/dL (0.0-0.4); BILIRUBIN,TOTAL 0.6 mg/dL (0.2-1.3); BLOOD UREA NITROGEN 22 mg/dL (7-20); CALCIUM 10.1 mg/dL (8.4-10.2); CARBON DIOXIDE 30 mmol/L (22-30); CHLORIDE 103 mmol/L (98-107); GLUCOSE 126 mg/dL (75-110); POTASSIUM 5.2 mmol/L (3.6-5.0); TOTAL PROTEIN 7.5 g/dL (6.3-8.2); TRIGLYCERIDES 87 mg/dL (<150)
[2020-05-26 09:55] LABS: DIRECT LDL 153 mg/dL (<100)
== END ==
LOC: OD 08:28
PROVIDERS: ATTEND Physician Assistant
DX: E78.5 Hyperlipidemia, unspecified (principal); I10 Essential (primary) hypertension; Z79.899 Other long term (current) drug therapy
CPT/HCPCS: 36415; 80048; 80061; 80076

== ENCOUNTER → 2020-06-16 | Outpatient (CLI) | payer MEDICAID ==
[2020-06-16 09:52] LABS: ANION GAP 8 (5-19); BLOOD UREA NITROGEN 24 mg/dL (7-20); CALCIUM 10.3 mg/dL (8.4-10.2); CARBON DIOXIDE 31 mmol/L (22-30); CHLORIDE 103 mmol/L (98-107); GLUCOSE 107 mg/dL (75-110)
== END ==
LOC: OD 08:19
PROVIDERS: ATTEND Physician Assistant
DX: I10 Essential (primary) hypertension (principal); E87.5 Hyperkalemia
CPT/HCPCS: 36415; 80048

== ENCOUNTER → 2020-09-15 | Outpatient (CLI) | payer MEDICAID ==
--- OUTSIDE RECORDS SUMMARY | 2020-09-15 08:02 | XMS REPORT ---
:1960 [facility] [place] [address] [place] [id number] Care Team Providers Name Role Phone Wesley Bell Primary Care Physician Unavailable Jocy LEYVA Attending Clinician Unavailable ANTONIO Attending Clinician Unavailable Allergies, Adverse Reactions, Alerts Allergy Name Allergy Status Severity Reaction(s) Onset Inactive Treat ing Comments Type Date Date Clinician Furosemide Propensity Active Swelling 2013-08 " Swelling to adverse 0-06 - cau sed reactions 00:00: more to drug 00 swelling of leg, and arms " Lasix Allergy to Active Respiratory substance distress Lasix TABS Lasix TABS Active Medications Ordered Filled Start Stop Current Ordering Indication Dosage Frequency Signature Comments Components Medication Medication Date Date Medication? Clinician (SIG) Name Name Ozempic 2019-08 Yes Thalia Ozempic (0.25 or 2-28 Jocy LEYVA (0.25 or 0.5 09:15: 0.5 MG/DOSE) 2 15 MG/DOSE) 2 MG/1.5ML MG/1.5ML Subcutaneou Subcutaneo s Solution us Pen-injecto Solution r Pen-inject or INJECT 0.5MG SUBCUTANEO USLY ONCE WEEKLY Quantity: 2 Refills: 1 Thalia Sandra MD Start : 0Active 1.5 ML Pen Ozempic 2020-0 No Thalia Betancourtempic (0.25 or 9-04 Jocy LEYVA (0.25 or 0.5 00:00: 0.5 MG/DOSE) 2 00 MG/DOSE) 2 MG/1.5ML MG/1.5ML Subcutaneou Subcutaneo s Solution us Pen-injecto Solution r Pen-inject or INJECT 0.5 MG ONCE WEEKLY. Quantity: 2 Refills: 1 Thalia Sandra MD Start : 29-Apr-2020 Active 1.5 ML Pen Lantus 2020-0 Yes Thalia Lantus SoloStar 03-22 Jocy LEYVA SoloStar 100 UNIT/ML 00:00: 100 Subcutaneou 00 UNIT/ML s Solution Subcutaneo Pen-injecto us r Solution Pen-inject or INJECT 50 UNITS SUBCUTANEO USLY ONCE DAILY Quantity: 3 Refills: 1 Thalia Sandra MD Start : 0Active 5 x 3 ML Pen Baclofen 20 2019-0 Yes Baclofen MG Oral 6-08 20 MG Oral Tablet 00:00: Tablet 00 TAKE 1 TABLET BY MOUTH THREE TIMES DAILY Quantity: 90 Refills: 0 Start : 01-Feb-2020 Active Spiriva 2019-0 Yes Spiriva HandiHaler 5-03 HandiHaler 18 MCG 00:00: 18 MCG Inhalation 00 Inhalation Capsule Capsule INHALE 1 PUFF BY MOUTH ONCE DAILY DIRECTED Quantity: 30 Refills: 0 Start : 27-Dec-2019 Active glipiZIDE 2019-0 Yes Thalia glipiZIDE 10 MG Oral 11-22 Jocy LEYVA 10 MG Oral Tablet 00:00: Tablet 00 TAKE 1 TABLET BY MOUTH ONCE DAILY. Quantity: 90 Refills: 1 Thalia Sandra MD Start : 0Active Losartan 2019-0 Yes Losartan Potassium 3-03 Potassium 100 MG Oral 00:00: 100 MG Tablet 00 Oral Tablet TAKE 1 TABLET BY MOUTH ONCE DAILY FOR 30 DAYS Quantity: 30 Refills: 0 Start : 27-Oct-2019 Active Carvedilol 2019-0 Yes Carvedilol 3.125 MG 3-03 3.125 MG Oral Tablet 00:00: Oral 00 Tablet TAKE 1 TABLET BY MOUTH TWICE DAILY DIRECTED FOR 90 DAYS Quantity: 180 Refills: 0 Start : 27-Oct-2019 Active Accu-Chek 2018-0 Yes Accu-Chek Eliza Plus 9-16 Eliza Plus In Vitro 00:00: In Vitro Strip 00 Strip USE 1 STRIP TO CHECK GLUCOSE TWICE DAILY Quantity: 150 Refills: 0 Start : 9Active oxycoDONE 2013-08 Yes 5mg Q6H Take 1-2 IR 0-29 tablets by (ROXICODONE 00:00: mouth ) 5 mg Oral 00 every 6 Tablet hours as needed. ipratropium 2013-08 Yes 2{puff} Q4D Take 2 -albuterol 0-27 puffs by (COMBIVENT 15:50: inhalation RESPIMAT) 59 four times 20-100 a day as mcg/actuati needed. on Inhalation Aerosol fluticasone 2013-08 Yes 2{puff} Take 2 -salmeterol 0-27 puffs by (ADVAIR) 15:50: inhalation 500-50 59 twice a mcg/dose day. Inhalation Disk with Device aspirin 2013-08 Yes 325mg Take 325 (ECOTRIN) 0-27 mg by 325 mg Oral 15:50: mouth Tablet, 59 daily. Delayed Release (E.C.) metFORMin 2013-08 Yes 1000mg Take 1,000 (GLUCOPHAGE 0-27 mg by ) 1,000 mg 15:50: mouth Oral Tablet 59 twice a day with meals. baclofen 2013-08 Yes 20mg Take 20 mg (LIORESAL) 0-27 by mouth 20 mg Oral 15:50: three Tablet 59 times a day. hydrochloro 2013-08 Yes 25mg Take 25 mg thiazide 0-27 by mouth (HYDRODIURI 15:50: daily. L) 25 mg 59 Oral Tablet pravastatin 2013-08 Yes 20mg Take 20 mg (PRAVACHOL) 0-27 by mouth 20 mg Oral 15:50: daily. Tablet 59 lisinopril 2013-08 Yes 40mg Take 40 mg (PRINIVIL, 0-27 by mouth ZESTRIL) 40 15:50: twice a mg Oral 59 day. Tablet tiotropium 2013-08 Yes 18ug Take 18 bromide 0-27 mcg by (SPIRIVA 15:50: inhalation HANDIHALER 59 daily. KIT) 18 mcg Inhalation Capsule, w/Inhalatio n Device Spiriva No Spiriva with with HandiHaler HandiHaler 18 mcg and 18 mcg and inhalation inhalation capsules capsules INHALE 1 INHALE 1 PUFF BY PUFF BY MOUTH ONCE MOUTH ONCE DAILY DAILY DIRECTED DIRECTED telmisartan No telmisarta 80 mg n 80 mg tablet TAKE tablet 1 TABLET BY TAKE 1 MOUTH ONCE TABLET BY DAILY FOR MOUTH ONCE 30 DAYS DAILY FOR 30 DAYS Medications No Medication not s not documented documented aspirin 325 No 1 Q1D aspirin mg tablet 325 mg Take 1 tablet tablet Take 1 every day tablet by oral every day route. by oral route. baclofen 20 No baclofen mg tablet 20 mg TAKE 1 tablet TABLET BY TAKE 1 MOUTH THREE TABLET BY TIMES DAILY MOUTH THREE TIMES DAILY carvedilol No carvedilol 3.125 mg 3.125 mg tablet TAKE tablet 1 TABLET BY TAKE 1 MOUTH TWICE TABLET BY DAILY MOUTH DIRECTED TWICE DAILY DIRECTED glipizide No glipizide 10 mg 10 mg tablet TAKE tablet 1 TABLET BY TAKE 1 MOUTH ONCE TABLET BY DAILY MOUTH ONCE DAILY Lantus No Lantus Solostar Solostar U-100 U-100 Insulin 100 Insulin unit/mL (3 100 mL) unit/mL (3 subcutaneou mL) s pen subcutaneo INJECT 50 us pen UNITS INJECT 50 SUBCUTANEOU UNITS SLY ONCE SUBCUTANEO DAILY USLY ONCE DAILY losartan No losartan 100 mg 100 mg tablet TAKE tablet 1 TABLET BY TAKE 1 MOUTH ONCE TABLET BY DAILY FOR MOUTH ONCE 90 DAYS DAILY FOR 90 DAYS Ozempic No Ozempic 0.25 mg or 0.25 mg or 0.5 mg (2 0.5 mg (2 mg/1.5 mL) mg/1.5 mL) subcutaneou subcutaneo s pen us pen injector injector INJECT INJECT 0.5MG 0.5MG SUBCUTANEOU SUBCUTANEO SLY ONCE USLY ONCE WEEKLY WEEKLY Problems Condition Condition Condition Status Onset Resolution Last Treatin g Comments Name Details Category Date Date Treatment Clinician Date Microalbumi Microalbumi Problem Active kirby kirby 914 00:00: 00 Insulin Insulin Problem Active treated 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 2 00:00: diabetes Diabetes 00 mellitus Mellitus Multiple Multiple Problem Active complicatio Complicatio 2-16 ns due to ns Due to 00:00: type 2 Type 2 00 diabetes Diabetes mellitus Mellitus Spasticity Spasticity Problem Active 1-16 00:00: 00 Body mass Body Mass Problem Active index 30+ - Index 30+ - 1-16 obesity Obesity 00:00: 00 Mild Mild Problem Active chronic Chronic 05-11 obstructive Obstructive 00:00: pulmonary Pulmonary 00 disease Disease History of History of Problem Active cerebrovasc Cerebrovasc 03-30 uljosé miguel ular 00:00: accident Accident 00 Former Former Problem Active heavy Heavy 03-30 tobacco Tobacco 00:00: smoker Smoker 00 Essential Essential Problem Active hypertensio Hypertensio n n Edema of Edema of Problem Active lower Lower extremity Extremity Polyp of Polyp of Problem Active colon Colon Hyperlipide Hyperlipide Problem Active geri geri Morbid Morbid Problem Active obesity Obesity Current use Current use Problem Active of insulin of insulin Hypercholes Hypercholes Problem Active teremia teremia Type 2 Type 2 Problem Active diabetes diabetes mellitus mellitus Procedures Procedure Date / Time Performed Performing Clinician Keara arshad pulse oximetry (PROC) 2020-07-19 00:00:00 pulse oximetry (PROC) 2020-05-21 00:00:00 LDCT, chest, for lung cancer 2020-05-21 00:00:00 screening Blood Sugar 2020-04-27 00:00:00 HGBA1C 2020-04-27 00:00:00 Fiberoptic Colonoscopy with Biopsy 2017-06-24 00:00:00 Tonsillectomy 1966-08-26 00:00:00 Procedures not documented Results Test Description Test Time Test Comments Text Results Atomic Results Result Comments TSH 2020-05-12 19:33:00 Test Item Value Reference Range Comments TSH (test code = 3016-3) 2.46 mIU/L 0.40-4.50 TESTOSTERONE, TOTAL, MALES (ADULT), [id number] 19:33:00 Test Item Value Reference Range Comments TESTOSTERONE, TOTAL, MALES (ADULT), IA (test code 682 ng/dL 250-827 = 2986-8) [id number] 19:33:00 Test Item Value Reference Range Comments ALBUMIN (test code = 1751-7) 4.1 g/dL 3.6-5.1 SEX HORMONE BINDING [id number] 19:33:00 Test Item Value Reference Range Comments SEX HORMONE BINDING GLOBULIN (test code = 93120-9) 59 nmol/L 22-77 CHOLESTEROL, [id number] 19:33:00 Test Item Value Reference Range Comments CHOLESTEROL, TOTAL (test code = 2093-3) 191 mg/dL <200 TESTOSTERONE, [id number] 19:33:00 Test Item Value Reference Range Comments TESTOSTERONE, FREE (test code = 2991-8) 58.3 pg/mL 46.0-224 .0 TESTOSTERONE,BIOAVAILABLE (test code = 2990-0) 109.8 ng/dL 1 10.0-575.0 PSA (FREE AND TOTAL)2020-05-12 19:33:00 Test Item Value Reference Range Comments PSA, TOTAL (test code 1.0 ng/mL <=4.0 = 2857-1) PSA, FREE (test code = 0.4 ng/mL 55440-7) PSA, % FREE (test code 40 % (calc) >25 PSA(ng/mL ) Free PSA(%) Estimated(x) = 22362-3) Probabilityof Ca ncer(as%)0-2.5 (*) Approx. 12.6-4.0 (1) 0-27(2) 24(3)4.1-10(4) 0 -10 5611-15 2816-20 2020- 16>or =2 6 8>10(+) N/A >50References:(1 )Ashley et al.:Urology 60: 469-474 (2001)(2)Sourav cabrera et al.:J.Urol 168: 922-925 (15 10)Free PSA(%) Sensitivity(%) S pecificity(%)< or = 25 85 19< or = 3 0 93 9(3)Ashley et al.:HOWARD 277: 3705-1297 (1996)(4)Sourav a et al.:HOWARD 279: 2723-0445 (1997) (x)These estimates vary with age, e thnicity, familyhistory an d DENNIS results.(*)The d iagnostic usefulness of % Free PSA has not beenestablished in patients with total PSA below 2.6 ng/mL(+)In men with PSA above 1 0 ng/mL, prostate cancer risk isde termined by total PSA alone.The To suzi PSA value from this assay syste m isstandardized against the equi molar PSA standard.The lou t result will be approximately 20 % higherwhen compared to the WHO-standardized Total PSA(Siemen s assay). Comparison of se rial PSA resultsshould be interpreted with this fact in min d.PSA was performed using the BeckACTV8 n CoulterImmunoass ay method. Values obtained from di fferentassay methods cannot b e used interchangeably. PSAlevels, regardless of va lue, should not be interpretedas ab solute evidence of the presence or absence ofdisease. INSULIN, FREE (BIOACTIVE)2020-05-12 19:33:00 Test Item Value Reference Range Comments INSULIN, FREE (BIOACTIVE) 17.1 uIU/mL 1.5-14.9 Insuli n levels vary widely in (test code = 6901-3) specimens t aken fromnon-fasting individuals.Insu mary analogues may demonstrate non-linearcross- reactivity in this assay. Inte rpret resultsaccording ly. HDL [id number] 19:33:00 Test Item Value Reference Range Comments HDL CHOLESTEROL (test code = 2085-9) 47 mg/dL >=40 [id number] 19:33:00 Test Item Value Reference Range Comments TRIGLYCERIDES (test code = 2571-8) 81 mg/dL <150 [id number] 19:33:00 Test Item Value Reference Range Comments LDL-CHOLESTEROL (test 126 mg/dL (calc) <=99 Reference range: <100Desirable code = 11000-0) range <100 mg/dL for primary prevention;<70 m g/dL for patients with CH D or diabetic patientswith > o r = 2 CHD risk factors.LDL-C is now calculated using the Jose lculation, which is a valid ated novel method providing better accuracy than the Friedew ald equation in theestimation of LDL-C.Jameel SS et al. HOWARD. 2013;310(19): 7146-4803(http:/ /education.ACTV8.com /faq/IYZ730) CHOL/HDLC [id number] 19:33:00 Test Item Value Reference Range Comments CHOL/HDLC RATIO (test code = 9830-1) 4.1 (calc) <5.0 NON HDL [id number] 19:33:00 Test Item Value Reference Range Comments NON HDL CHOLESTEROL (test 144 mg/dL (calc) <130 For p atients with code = 13232-0) diabetes plus 1 major ASCVD riskfactor , treating to a no n-HDL-C goal of <100 mg/ dL(LDL-C of <70 mg/dL) is considered a therapeuticoptio n. [id number] 19:33:00 Test Item Value Reference Range Comments GGT (test code = 2324-2) 15 U/L 3-70 [id number] 19:33:00 Test Item Value Reference Range Comments MAGNESIUM (test code = 93673-5) 1.7 mg/dL 1.5-2.5 COMPREHENSIVE METABOLIC [id number] 19:33:00 Test Item Value Reference Range Comments GLUCOSE (test code = 126 mg/dL 65-99 Fasting ref erence 2345-7) intervalFor some one without known di abetes, a glucosevalue >12 5 mg/dL indicates that t darius may havediabetes and this should be confir med with afollow-up test. UREA NITROGEN (BUN) 20 mg/dL 7-25 (test code = 3094-0) CREATININE (test code 1.17 mg/dL 0.70-1.25 For patien ts >49 years of = 2160-0) age, the referen ce limitfor Creatin ine is approximately 13 % higher for peopleidenti fied as -Ivorian . eGFR NON-AFR. CUBAN 66 mL/min/1.73m2 >=60 (test code = 49815-1) eGFR 77 mL/min/1.73m2 >=60 (test code = 45139-7) BUN/CREATININE RATIO NOT APPLICABLE (calc) 6-22 (test code = 3097-3) SODIUM (test code = 139 mmol/L 557-244 8792-2) POTASSIUM (test code = 4.5 mmol/L 3.5-5.3 2823-3) CHLORIDE (test code = 101 mmol/L 98-110 2074-0) CARBON DIOXIDE (test 30 mmol/L 20-32 code = 2027-9) CALCIUM (test code = 9.7 mg/dL 8.6-10.3 40275-6) PROTEIN, TOTAL (test 6.7 g/dL 6.1-8.1 code = 2885-2) ALBUMIN (test code = 4.1 g/dL 3.6-5.1 1750-7) GLOBULIN (test code = 2.6 g/dL (calc) 1.9-3.7 81310-0) ALBUMIN/GLOBULIN RATIO 1.6 (calc) 1.0-2.5 (test code = 1759-0) BILIRUBIN, TOTAL (test 0.6 mg/dL 0.2-1.2 code = 1975-2) ALKALINE PHOSPHATASE 68 U/L 35-144 (test code = 6768-6) AST (test code = 23 U/L 10-35 1920-8) ALT (test code = 27 U/L 9-46 1742-6) CBC (INCLUDES DIFF/PLT)2020-05-12 19:33:00 Test Item Value Reference Range Comments WHITE BLOOD CELL COUNT (test code = 6690-2) 8.2 Thousand/uL 3.8- 10.8 RED BLOOD CELL COUNT (test code = 789-8) 5.13 Million/uL 4.20-5. 80 HEMOGLOBIN (test code = 718-7) 14.4 g/dL 13.2-17.1 HEMATOCRIT (test code = 4544-3) 44.2 % 38.5-50.0 MCV (test code = 787-2) 86.2 fL 80.0-100.0 MCH (test code = 785-6) 28.1 pg 27.0-33.0 MCHC (test code = 786-4) 32.6 g/dL 32.0-36.0 RDW (test code = 788-0) 12.8 % 11.0-15.0 PLATELET COUNT (test code = 777-3) 218 Thousand/uL 140-400 MPV (test code = 776-5) 11.1 fL 7.5-12.5 ABSOLUTE NEUTROPHILS (test code = 751-8) 5650 cells/uL 1500-78 00 ABSOLUTE LYMPHOCYTES (test code = 731-0) 1419 cells/uL 850-390 0 ABSOLUTE MONOCYTES (test code = 742-7) 631 cells/uL 200-950 ABSOLUTE EOSINOPHILS (test code = 711-2) 443 cells/uL 15-500 ABSOLUTE BASOPHILS (test code = 704-7) 57 cells/uL 0-200 NEUTROPHILS (test code = 770-8) 68.9 % LYMPHOCYTES (test code = 736-9) 17.3 % MONOCYTES (test code = 5905-5) 7.7 % EOSINOPHILS (test code = 713-8) 5.4 % BASOPHILS (test code = 706-2) 0.7 % CREATINE KINASE, [id number] 19:33:00 Test Item Value Reference Range Comments CREATINE KINASE, TOTAL (test code = 2157-6) 203 U/L 44-1 96 CREATININE, RANDOM [id number] 19:33:00 Test Item Value Reference Range Comments CREATININE, RANDOM URINE (test code = 2161-8) 133 mg/dL 20 -320 ALBUMIN, RANDOM URINE [id number] 19:33:00 Test Item Value Reference Range Comments ALBUMIN, URINE (test 4.6 mg/dL Reference R Binut established code = 45978-2) ALBUMIN/CREATININE 35 mcg/mg creat <30 The ADA defin es abnormalities RATIO, RANDOM URINE in albuminex cretion as (test code = 9318-7) follows:Cat egory Result (mcg/mg creatinine)Heaven l <30Microalbuminu broderick 30-299Clinical a lbuminuria > OR = 300The ADA rec ommends that at least two of thr eespecimens collected within a 3-6 month period beabnorma l before considering a pa tient to bewithin a diagn ostic category. [id number] 19:33:00 Test Item Value Reference Range Comments INSULIN (test code = 20.6 uIU/mL <=19.6 Reference R codie < or = 76377-1) 19.6Risk:Optimal < or = 19.6Moderate NAH igh >19.6Adult cardiovascular e vent risk categorycut poin ts (optimal, moderate, high)a re based on [facility] s populationdata from 07/2011.[facility] s insulin assay shows strong escrow officer ss-reactivity forsome insulin analogs (lispro, aspart, and glar gine)and much lower cross-reac tivity with others (detemir, glulisine). Insulin Free [Units/volume] in Serum or [id number] 00:00:00 Test Item Value Reference Range Comments Insulin Free [Units/volume] in Serum or Plasma 17.1 uIU/mL 1 .5-14.9 (test code = 6901-3) Lipid 1996 panel - Serum or [id number] 00:00:00 Test Item Value Reference Range Comments Cholesterol [Mass/volume] in Serum or 191 mg/dL <200 Plasma (test code = 2093-3) Cholesterol in HDL [Mass/volume] in Serum 47 mg/dL > or = 40 or Plasma (test code = 2085-9) Triglyceride [Mass/volume] in Serum or 81 mg/dL <150 Plasma (test code = 2571-8) Cholesterol in LDL [Mass/volume] in Serum 126 mg/dL (calc) or Plasma by calculation (test code = 46656-7) Cholesterol.total/Cholesterol.in HDL [Mass 4.1 (calc) <5.0 ratio] in Serum or Plasma (test code = 9830-1) Cholesterol non HDL [Mass/volume] in Serum 144 mg/dL (calc) <130 or Plasma (test code = 70004-7) Microalbumin/Creatinine [Mass Ratio] in [id number] 00:00:00 Test Item Value Reference Range Comments Creatinine [Mass/volume] in Urine (test code 133 mg/dL 20- 320 = 2161-8) Microalbumin [Mass/volume] in Urine (test 4.6 mg/dL see no te: code = 38858-9) Albumin/Creatinine [Mass ratio] in Urine 35 mcg/mg creat <30 (test code = 9318-7) testosterone, bioavailable + free + total, [id number] 00:00:00 Test Item Value Reference Range Comments Testosterone [Mass/volume] in Serum or Plasma 682 NG/dL 25 0-827 (test code = 2986-8) Albumin [Mass/volume] in Serum or Plasma (test 4.1 g/dL 3 .6-5.1 code = 1751-7) Sex hormone binding globulin [Moles/volume] in 59 nmol/L 2 2-77 Serum or Plasma (test code = 49608-2) Testosterone Free [Mass/volume] in Serum or 58.3 pg/mL 46.0 -224.0 Plasma (test code = 2991-8) Testosterone.free+weakly bound [Mass/volume] in 109.8 NG/dL 110.0-575.0 Serum or Plasma (test code = 2990-0) Gamma glutamyl transferase [Enzymatic activity/volume] in Serum or Plasma 2020-05-06 00:00:00 Test Item Value Reference Range Comments Gamma glutamyl transferase [Enzymatic 15 U/L 3-70 activity/volume] in Serum or Plasma (test code = 2324-2) Magnesium [Mass/volume] in Serum or [id number] 00:00:00 Test Item Value Reference Range Comments Magnesium [Mass/volume] in Serum or Plasma (test 1.7 mg/dL 1.5-2.5 code = 13936-8) Comprehensive metabolic 2000 panel - Serum or [id number] 00:00:00 Test Item Value Reference Range Comments Glucose [Mass/volume] in Serum or Plasma 126 mg/dL 65-99 (test code = 2345-7) Urea nitrogen [Mass/volume] in Serum or 20 mg/dL 7-25 Plasma (test code = 3094-0) Creatinine [Mass/volume] in Serum or Plasma 1.17 mg/dL 0.70 -1.25 (test code = 2160-0) Glomerular filtration rate/1.73 sq 66 mL/min/1.73m2 > or = 60 M.predicted [Volume Rate/Area] in Serum, Plasma or Blood by Creatinine-based formula (MDRD) (test code = 11369-6) Glomerular filtration rate/1.73 sq 77 mL/min/1.73m2 > or = 60 M.predicted among blacks [Volume Rate/Area] in Serum, Plasma or Blood by Creatinine-based formula (MDRD) (test code = 57456-8) Urea nitrogen/Creatinine [Mass Ratio] in not applicable 6-22 Serum or Plasma (test code = 3097-3) Sodium [Moles/volume] in Serum or Plasma 139 mmol/L 135-146 (test code = 2951-2) Potassium [Moles/volume] in Serum or Plasma 4.5 mmol/L 3.5- 5.3 (test code = 2823-3) Chloride [Moles/volume] in Serum or Plasma 101 mmol/L 98-11 0 (test code = 2075-0) Carbon dioxide, total [Moles/volume] in 30 mmol/L 20-32 Serum or Plasma (test code = 2028-9) Calcium [Mass/volume] in Serum or Plasma 9.7 mg/dL 8.6-10. 3 (test code = 79587-5) Protein [Mass/volume] in Serum or Plasma 6.7 g/dL 6.1-8.1 (test code = 2885-2) Albumin [Mass/volume] in Serum or Plasma 4.1 g/dL 3.6-5.1 (test code = 1751-7) Globulin [Mass/volume] in Serum by 2.6 g/dL (calc) 1.9-3.7 calculation (test code = 80783-2) Albumin/Globulin [Mass Ratio] in Serum or 1.6 (calc) 1.0-2. 5 Plasma (test code = 1759-0) Bilirubin.total [Mass/volume] in Serum or 0.6 mg/dL 0.2-1. 2 Plasma (test code = 1975-2) Alkaline phosphatase [Enzymatic 68 U/L 35-144 activity/volume] in Serum or Plasma (test code = 6768-6) Aspartate aminotransferase [Enzymatic 23 U/L 10-35 activity/volume] in Serum or Plasma (test code = 1920-8) Alanine aminotransferase [Enzymatic 27 U/L 9-46 activity/volume] in Serum or Plasma (test code = 1742-6) Creatine kinase [Enzymatic activity/volume] in Serum or [id number] 00:00:00 Test Item Value Reference Range Comments Creatine kinase [Enzymatic activity/volume] in Serum 203 U/L 44-196 or Plasma (test code = 2157-6) Insulin [Units/volume] in Serum or [id number] 00:00:00 Test Item Value Reference Range Comments Insulin [Units/volume] in Serum or Plasma (test 20.6 uIU/mL code = 90564-4) Thyrotropin [Units/volume] in Serum or [id number] 00:00:00 Test Item Value Reference Range Comments Thyrotropin [Units/volume] in Serum or Plasma 2.46 mIU/L 0. 40-4.50 (test code = 3016-3) Prostate specific Ag panel - Serum or [id number] 00:00:00 Test Item Value Reference Range Comments Prostate specific Ag [Mass/volume] in Serum or 1.0 NG/mL < or = 4.0 Plasma (test code = 2857-1) Prostate Specific Ag Free [Mass/volume] in Serum 0.4 NG/mL or Plasma (test code = 73598-1) Prostate Specific Ag Free/Prostate specific 40 % (calc) >25 Ag.total in Serum or Plasma (test code = 10857-8) Urinalysis macro (dipstick) panel - [id number] 12:14:00 Test Item Value Reference Range Comments Glucose (test code = Glucose) Negative Bilirubin (test code = Bilirubin) Negative Ketones (test code = Ketones) Negative SG (test code = SG) 1.025 Blood (test code = Blood) Negative pH (test code = pH) 7.0 Protein (test code = Protein) Negative Urobilinogen (test code = Urobilinogen) 0.2 Nitrites (test code = Nitrites) negative Leukocytes (test code = Leukocytes) Negative Appearance (test code = Appearance) Clear Color (test code = Color) Yellow Hemoglobin A1c/Hemoglobin.total in [id number] 12:10:00 Test Item Value Reference Range Comments HbA1c (test code = HbA1c) 6.8% CBC W Auto Differential panel - [id number] 00:00:00 Test Item Value Reference Range Comments Leukocytes [#/volume] in Blood by Automated 8.2 thousand/uL 3.8- 10.8 count (test code = 6690-2) Erythrocytes [#/volume] in Blood by 5.13 million/uL 4.20-5.80 Automated count (test code = 789-8) Hemoglobin [Mass/volume] in Blood (test code 14.4 g/dL 13. 2-17.1 = 718-7) Hematocrit [Volume Fraction] of Blood by 44.2 % 38.5-50 .0 Automated count (test code = 4544-3) Erythrocyte mean corpuscular volume [Entitic 86.2 fL 80. 0-100.0 volume] by Automated count (test code = 787-2) Erythrocyte mean corpuscular hemoglobin 28.1 pg 27.0-33. 0 [Entitic mass] by Automated count (test code = 785-6) Erythrocyte mean corpuscular hemoglobin 32.6 g/dL 32.0-36. 0 concentration [Mass/volume] by Automated count (test code = 786-4) Erythrocyte distribution width [Ratio] by 12.8 % 11.0-1 5.0 Automated count (test code = 788-0) Platelets [#/volume] in Blood by Automated 218 thousand/uL 140-4 00 count (test code = 777-3) Platelet mean volume [Entitic volume] in 11.1 fL 7.5-12. 5 Blood by Moncho (test code = 776-5) Neutrophils [#/volume] in Blood by Automated 5650 cells/uL 150 0-7800 count (test code = 751-8) Lymphocytes [#/volume] in Blood by Automated 1419 cells/uL 850 -3900 count (test code = 731-0) Monocytes [#/volume] in Blood by Automated 631 cells/uL 200-9 50 count (test code = 742-7) Eosinophils [#/volume] in Blood by Automated 443 cells/uL 15- 500 count (test code = 711-2) Basophils [#/volume] in Blood by Automated 57 cells/uL 0-200 count (test code = 704-7) Neutrophils/100 leukocytes in Blood by 68.9 % Automated count (test code = 770-8) Lymphocytes/100 leukocytes in Blood by 17.3 % Automated count (test code = 736-9) Monocytes/100 leukocytes in Blood by 7.7 % Automated count (test code = 5905-5) Eosinophils/100 leukocytes in Blood by 5.4 % Automated count (test code = 713-8) Basophils/100 leukocytes in Blood by 0.7 % Automated count (test code = 706-2) Hemoglobin [id number] 12:11:00 Test Item Value Reference Range Comments Hemoglobin A1C; Above High Threshold (test code = 6.3 % 4.3-6.2 4548-4) HgB A1C performed by nurse on DCA bbsnb-mz-ccbi analyzer by [id number] 11:37:00 Test Item Value Reference Range Comments White Blood Cell (test code = White Blood Cell) 9.0 K/uL 3.5-11.1 Red Blood Cell (test code = Red Blood Cell) 5.19 {M/uL} 4.27 -5.49 Hemoglobin (test code = Hemoglobin) 14.5 g/dL 12.9-16.1 Hematocrit (test code = Hematocrit) 45 % 38-47 Mean Corpuscular Volume (test code = Mean 86.3 fL 79.0-9 5.0 Corpuscular Volume) Mean Corpuscular Hemoglobin (test code = Mean 27.9 pg/mL 27 .0-33.0 Corpuscular Hemoglobin) Mean Corpuscular Hemoglobin Concentration (test 32.4 g/dL 33.5-35.5 code = Mean Corpuscular Hemoglobin Concentration) Red Cell Distribution Width (test code = Red 13.2 % 12. 0-15.0 Cell Distribution Width) Platelet (test code = Platelet) 223 K/uL 130-353 Mean Platelet Volume (test code = Mean Platelet 11.3 fL 7.5-10.7 Volume) Neutrophil Count, absolute (test code = 5.9 K/uL 1.9-7.2 Neutrophil Count, absolute) Neutrophil Count Percentage (test code = 65.7 % 43.0-72 .0 Neutrophil Count Percentage) Lymphocyte Count, absolute (test code = 1.7 K/uL 1.1-2.7 Lymphocyte Count, absolute) Lymphocyte Count Percentage (test code = 19.1 % 17.0-44 .0 Lymphocyte Count Percentage) Monocyte Count, absolute (test code = Monocyte 0.7 K/uL 0 .3-0.8 Count, absolute) Monocyte Count Percentage (test code = Monocyte 8.0 % 4.5-12.4 Count Percentage) Eosinophil Count, absolute (test code = 0.5 K/uL 0.0-0.5 Eosinophil Count, absolute) Eosinophil Count Percentage (test code = 5.7 % 0.7-7.8 Eosinophil Count Percentage) Basophil Count, absolute (test code = Basophil 0.1 K/uL 0 .0-0.1 Count, absolute) Basophil Count Percentage (test code = Basophil 0.9 % 0.2-1.1 Count Percentage) Nucleated Red Blood Cell, absolute (test code = 0.00 K/uL 0.00-0.00 Nucleated Red Blood Cell, absolute) Nucleated Red Blood Cell, percentage (test code 0.00 % 0.00-0.00 = Nucleated Red Blood Cell, percentage) Direct [id number] 11:37:00 Test Item Value Reference Range Comments Low Density Lipoprotein; Above High Threshold 173 mg/dL 1- 130 (test code = 2089-1) Thyroid Stimulating [id number] 11:37:00 Test Item Value Reference Range Comments Thyroid Stimulating Hormone (test code = 1.92 {mIU/mL} 0.46-4. 68 Thyroid Stimulating Hormone) Microalbumin [id number] 11:37:00 Test Item Value Reference Range Comments Microalbumin/Creatinine Ratio (test code = 26 {ratio} 0-30 1755-8) CMP(Complete Metabolic Panel)2020-04-29 11:37:00 Test Item Value Reference Range Comments Glucose (test code = Glucose) 105 mg/dL 74-106 Sodium (test code = Sodium) 139 mmol/L 135-145 Potassium (test code = Potassium) 4.9 mmol/L 3.5-5.3 Chloride (test code = Chloride) 99 mmol/L 98-107 CO2 (test code = CO2) 30 mmol/L 22-30 Creatinine, serum (test code = Creatinine, serum) 1.10 mg/dL 0.10-1.25 Glomerular Filtration Rate (test code = >60 >60 Glomerular Filtration Rate) Glomerular Filtration Rate AA (test code = >60 >60 Glomerular Filtration Rate AA) Blood Urea Nitrogen (test code = Blood Urea 25 mg/dL 9-20 Nitrogen) Calcium (test code = Calcium) 9.8 mg/dL 8.4-10.5 Phosphorus (test code = Phosphorus) 3.4 mg/dL 2.5-4.5 Total Protein (test code = Total Protein) 7.7 g/dL 6.3-8. 2 Albumin (test code = 51538-0) 4.5 g/dL 3.5-5.0 Total Bilirubin (test code = Total Bilirubin) 0.7 mg/dL 0. 2-1.3 Bilirubin, unconj (test code = Bilirubin, unconj) 0.5 mg/dL 0.0-1.1 Bilirubin, Direct (test code = Bilirubin, Direct) 0.2 mg/dL 0.0-0.4 Alkaline Phosphatase (test code = Alkaline 77 U/L 20-15 0 Phosphatase) Alanine Transaminase (test code = Alanine 46 U/L 0-50 Transaminase) Aspartate Aminotransferase (test code = Aspartate 36 U/L 3-36 Aminotransferase) Repeated: BUN, ASTBlood [id number] 11:37:00 Test Item Value Reference Range Comments Blood Sugar (test code = Blood Sugar) 121 mg/dL 70-110 Blood sugar performed at nurse's station by [facility] WITHOUT [id number] 07:20:00 Test Item Value Reference Range Comments WBC (test code = 6690-2) 9.40 k/uL 4.8-10.8 RBC (test code = 789-8) 5.21 M/uL 4.5-5.6 Hemoglobin (test code = 718-7) 14.2 g/dL 14-18 Hematocrit (calc.) (test code = 4544-3) 43.5 % 42-52 MCV (test code = 787-2) 84 fL 80-96 MCH (test code = 785-6) 27.3 pg 27-32 MCHC (calc.) (test code = 786-4) 32.6 g/dL 33-36 RDW (test code = 788-0) 14.1 % 11-14.4 Platelet (test code = 777-3) 194 k/uL 130-400 Mean Platelet Volume (test code = 00822-4) 12.3 fL 7.4-1 0.4 Lab Interpretation (test code = 78417-0) Abnormal COMPREHENSIVE METABOLIC [id number] 07:20:00 Test Item Value Reference Range Comments Sodium (test code = 2951-2) 136 mEq/L 136-145 Potassium (test code = 2823-3) 4.5 mEq/L 3.5-5.1 Chloride (test code = 2075-0) 101 mEq/L 98-107 Bicarbonate (TCO2) (test code = 8-9) 29 mEq/L 21-32 Calcium (test code = 05494-2) 9.8 mg/dL 8.5-10.1 Glucose (test code = 2345-7) 153 mg/dL 74-106 BUN (test code = 3094-0) 23 mg/dL 7-18 Protein, Total (test code = 2885-2) 7.7 g/dL 6.4-8.2 Albumin (test code = 1751-7) 3.5 g/dL 3.4-5 Bilirubin, Total (test code = 1975-2) 0.4 mg/dL 0.2-1 Alkaline Phosphatase (test code = 100 U/L 46-116 6768-6) AST (SGOT) (test code = 1920-8) 25 U/L 15-37 Creatinine (test code = 2160-0) 1.41 mg/dL 0.55-1.3 Anion Gap (calc.) (test code = 30755-5) 6 mEq/L 5-15 ALT (SGPT) (test code = 1742-6) 43 U/L 12-78 BUN/Creatinine (test code = 3097-3) 16.3 mg/dL Osmolality (calc) (test code = 10351-4) 279 mOsmol/kg 273-304 Globulin (calc.) (test code = 79083-5) 4.2 g/dL Albumin / Globulin (test code = 1759-0) 0.83 1 GFR, non-AA, (est.) (test code = 54 mL/Min/1.73 m2 >59 91066-7) GFR, AA, (est.) (test code = 65596-6) >59 >59 mL/Min /1.73 m2 Lab Interpretation (test code = Abnormal 91369-2) TSH WITH REFLEX TO FREE [id number] 07:20:00 Test Item Value Reference Range Comments TSH with Reflex (test code = 10377-7) 3.66 uIU/mL 0.358-3.74 0 LIPID [id number] 07:20:00 Test Item Value Reference Range Comments Cholesterol, Total (test code = 146 mg/dL 049-025 7195-3) Triglycerides (test code = 112 mg/dL 35-150 2571-8) Cholesterol, HDL (test code = 38 mg/dL 40-59 2085-9) Cholesterol, LDL (test code = 86 mg/dL 0-129 22927-4) Cholesterol, Total/HDL (test 3.8 mg/dL NO NORMAL RANGES ESTABLISHED code = 9830-1) Lab Interpretation (test code = Abnormal 59037-9) Assessments Condition Name Status Diagnosis Date Treating Clinici an Essential hypertension 2020-07-19 06:53:51 Microalbuminuria 2020-07-19 06:53:52 Medication monitoring 2020-07-19 06:54:19 Morbid obesity 2020-07-19 06:53:56 Body mass index 30+ - obesity 2020-07-19 06:53:5 7 Morbid obesity 2020-08-21 20:57:36 Adult health examination 2020-05-21 07:32:37 Venereal disease screening 2020-05-21 07:32:37 Screening for malignant neoplasm of 2020-05-21 0 7:32:37 colon Polyp of colon 2020-05-21 07:34:28 Screening for cardiovascular system 2020-05-21 0 7:32:37 disease Screening for malignant neoplasm of 2020-05-21 0 7:32:37 prostate Depression screening 2020-05-21 07:32:37 Screening for alcohol abuse 2020-05-21 07:33:51 Obesity screening 2020-05-21 07:32:37 Administration of influenza vaccine Active 2020-05-21 0 7:33:59 Administration of pneumococcal vaccine Active 2020-04-27 6 07:34:06 Administration of viral vaccine Active 2020-05-21 07:34 :11 Administration of tetanus vaccine Active 2020-05-21 07: 34:13 History of cerebrovascular accident Active 2020-05-21 0 7:34:16 Essential hypertension Active 2020-05-21 07:34:16 Microalbuminuria Active 2020-05-21 07:34:17 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 2020-05-21 07:34:19 diabetes mellitus Insulin treated type 2 diabetes Active 2020-05-21 07:34 :21 mellitus Hyperlipidemia Active 2020-05-21 07:34:22 Edema of lower extremity Active 2020-05-21 07:34:23 Mild chronic obstructive pulmonary Active 2020-05-21 07 :34:25 disease Former heavy tobacco smoker Active 2020-05-21 07:34:30 Spasticity Active 2020-05-21 07:34:27 Body mass index 30+ - obesity Active 2020-05-21 07:34:3 1 Current use of insulin Active Type 2 diabetes mellitus Active Hypercholesteremia Active HTN Active Chronic kidney disease Active Encounters Start End Encounter Admission Attending Care Care Encounter Date/Time Date/Time Type Type Clinicians Facility Department ID 2020-07-19 2020-07-19 [facility] [id number] 00:00:00 00:00:00 MD Ray: [facility] [address] [place] [address], Ph. 2020-05-21 2020-05-21 [facility] [id number] 00:00:00 00:00:00 MD aRy: [facility] [address] [place] [address], Ph. 2020-04-29 2020-04-29 Appointment VIRIDIANA SandraCHARLEEN [id number] 10:50:00 10:50:00 ; Thalia Sandra MD 2018-04-21 2018-04-21 Outpatient [facility]ANT [facility] [id number] 02:30:00 23:59:00 2018-04-21 2018-04-21 Outpatient Moris LOPEZ VIDACHINA [id number] 02:30:00 23:59:00 ANTOINE ROQUE Family History Family Member Diagnosis Comments Start Date Stop Date Mother Family history of hyperlipidemia Mother Family history of hypertension Father Family history of diabetes mellitus Father Family history of hypertension Sister Family history of acute myocardial infarction Immunizations Ordered Immunization Filled Immunization Date Status Commen ts Refusal Reason Name Name Tdap 2014-02-11 Completed 12:52:02 Payers Payer Name Policy Type Policy Number Effective Date Expiration D ate MEDICAID [place] [employer] [id number] Plan of Treatment Planned Activity Planned Date Details Comments Future Scheduled Test [code = ] Future Appointment 2020-11-18 09:30:00 Felipe Eugene; , [place] [address] Future Appointment 2020-11-11 09:45:00 Nurse, Felipe Trejo ; , [place] [address] Social History Social Habit Start Date Stop Date Comments Cigarettes smoked current (pack per 2014-06-23 00:00:00 00:00:00 day) - Reported Cigarette pack-years 2014-06-23 00:00:00 2014-06-23 00:00:00 Smoking Status Start Date Stop Date Ex-smoker (finding) History of tobacco use Current every day smoker 2014-06-23 00:00:00 2014-06-23 00:0 0:00 Vital Signs Vital Name Observation Time Observation Value Comments BP Diastolic 2020-07-19 00:00:00 89 mm[Hg] Height 2020-07-19 00:00:00 71 [in_i] BMI (Body Mass Index) 2020-07-19 00:00:00 38.9 kg/m2 BP Systolic 2020-07-19 00:00:00 134 mm[Hg] Body Weight 2020-07-19 00:00:00 278.8 [lb_av] BP Diastolic 2020-05-21 00:00:00 99 mm[Hg] Height 2020-05-21 00:00:00 71 [in_i] BMI (Body Mass Index) 2020-05-21 00:00:00 38.2 kg/m2 BP Systolic 2020-05-21 00:00:00 146 mm[Hg] Body Weight 2020-05-21 00:00:00 274.2 [lb_av] Systolic blood pressure 2020-04-29 11:24:00 138 mm[Hg] Diastolic blood pressure 2020-04-29 11:24:00 88 mm[Hg] Weight 2020-04-29 11:24:00 274 [lb_av] Body temperature 2020-04-29 11:24:00 98.9 [degF] Heart Rate 2020-04-29 11:24:00 84 /min Hospital Discharge Instructions 1. Essential hypertension pulse oximetry (PROC) 2. Microalbuminuria 3. Medication monitoring 4. Morbid obesity 5. Body mass index 30+ - obesity Discussion Note After performing a Medical Screening Examination, I estimate there is LOW risk for ACUTE CORONARY SYNDROME, RESPIRATORY FAILURE, SEPSIS OR MENINGITIS, thus I consider the discharge disposition reasonable. The patient and I have discussed the diagnosis and risks, and we agree with discharging home with close follow-up. We also discussed returning to the Office immediately if new or worsening symptoms occur. We have discussed the symptoms which are most concerning (e.g., changing or worsening pain, trouble swallowing or breathing, neck stiffness, fever) that necessitate immediate return. After performing a Medical Screening Examination, I estimate there is LOW risk for ACUTE CVA, ACUTE RENAL FAILURE, ACUTE CORONARY SYNDROME, OR THORACICAORTIC DISSECTION, thus I consider the discharge disposition reasonable. The patient and I have discussed the diagnosis and risks, and we agree with discharging home with close follow- up. We also discussed returning to the Office immediately if new or worsening symptoms occur. We have discussed the symptoms which are most concerning (e.g., bloody sputum, worsening pain or shortness of breath) that necessitate immediate return. All pt. questions and concerns were addressed and answered. Pt. verbalized understanding and agreement of treatment plan. I spent up to 15 minutes of face to face time with patient and > 50% was spent in counseling and/or coordination of care. Quality measures/ USPSTF/AAFP screening guidelines and recommendations were reviewed and discussed and appropriate orders initiated if applicable. Patient educational handouts: No information available. NameDatesDetailsInstructions not documented
[2020-09-15 09:06] LABS: ALBUMIN 4.1 g/dL (3.5-5.0); ALKALINE PHOSPHATASE 76 U/L (38-126); ANION GAP 5 (5-19); ASPARTATE AMINO TRANSFERASE 35 U/L (17-59); BILIRUBIN,DIRECT 0.2 mg/dL (0.0-0.4); BILIRUBIN,TOTAL 0.5 mg/dL (0.2-1.3); BLOOD UREA NITROGEN 25 mg/dL (7-20); CALCIUM 9.4 mg/dL (8.4-10.2); CARBON DIOXIDE 30 mmol/L (22-30); CHLORIDE 104 mmol/L (98-107); CHOLESTEROL 192.17 mg/dL (0-200); GLUCOSE 107 mg/dL (75-110); POTASSIUM 5.2 mmol/L (3.6-5.0); TOTAL PROTEIN 7.2 g/dL (6.3-8.2); TRIGLYCERIDES 67 mg/dL (<150)
[2020-09-15 09:19] LABS: DIRECT LDL 151 mg/dL (<100)
== END ==
LOC: OD 07:59
PROVIDERS: ATTEND Physician Assistant
DX: E78.5 Hyperlipidemia, unspecified (principal); I10 Essential (primary) hypertension; Z79.899 Other long term (current) drug therapy
CPT/HCPCS: 36415; 80048; 80061; 80076